=== PATIENT | male | born 1950 | race Caucasian/White ===

== ENCOUNTER → 2017-04-22 | Outpatient (REF) | payer OTHER ==
[~2017-04-22] MED LIST: ACTO30TA15 PO; AMIT25TA PO; AMLO10TA PO; ASPI325T PO; ATEN25TA PO; BYDU1INJ SC; GLYB5TA PO; HYDR12CA PO; LANTINJ4 SC; LOSA25TA8 PO; MECL-68 PO; METF500T13 PO; NOVOINJ3 SC; SIMV20TA2 PO; VIAG100T PO; VITA100066 PO; VITACHTA PO
== END ==
LOC: M LAB REF 12:51
PROVIDERS: ATTEND Nurse Practitioner Psychiatric/Mental Health
DX: E66.01 Morbid (severe) obesity due to excess calories (principal)

== ENCOUNTER → 2017-06-10 | Outpatient (CLI) | payer OTHER ==
[2017-06-10 13:57] LABS: CHOLESTEROL LEVEL 192 MG/DL (<200); TRIGLYCERIDES LEVEL 431 MG/DL (<150)
== END ==
LOC: M LAB 11:23
PROVIDERS: ATTEND Internal Medicine Endocrinology, Diabetes & Metabolism
DX: E11.22 Type 2 diabetes mellitus with diabetic chronic kidney disease (principal)

== ENCOUNTER 2017-09-13 08:11 | Outpatient (RCR) | payer OTHER | END 2017-10-10 | LOC: M PT 08:11 | DX: Z51.89 Encounter for other specified aftercare (principal); M25.512 Pain in left shoulder | CPT/HCPCS: 97010 ==

== ENCOUNTER → 2019-09-06 | Outpatient (CLI) | payer OTHER ==
[~2019-09-06] MED LIST changes: +ASPI-1 PO; -ASPI325T PO; +GLYB-147 PO; -GLYB5TA PO; +LOSA25TA14 PO; -LOSA25TA8 PO; -SIMV20TA2 PO; +SIMV20TA22 PO
[2019-09-06 09:33] LABS: CHOLESTEROL RISK RATIO 4.071 (<5)
== END ==
LOC: M LAB 08:22
PROVIDERS: ATTEND Family Medicine
DX: E11.22 Type 2 diabetes mellitus with diabetic chronic kidney disease (principal)

== ENCOUNTER → 2019-09-27 | Outpatient (CLI) | payer OTHER ==
--- NOTE | 2019-09-27 09:58 | REP ---
Abdominal aortic sonography: History: Screening for abdominal aortic aneurysm. . Findings: Scanning through the retroperitoneum demonstrates that the abdominal aorta is normal in caliber at the level of the diaphragmatic hiatus measuring 1.9 x 2.9 cm in AP by transverse dimension respectively. The measurements of the aorta at the level of the renal artery origins is 2.0 x 2.6 cm in AP by transverse dimension diameter respectively. The distal aorta tapers to 1.5 x 1.8 cm AP by transverse dimension. The right and left common iliac arteries are normal measuring 1.2 and 1.1 cm in AP dimension respectively. No aneurysm is seen. No periaortic disease is observed. Impression: Negative abdominal aortic sonography. Electronically Signed by Kevin Cisneros MD 09/27/2019 09:50 A
--- NOTE | 2019-09-27 11:15 | REP ---
LOW DOSE LUNG SCREENING CT: Low dose lung screening CT is accomplished on the axial plane. There are no prior studies for comparison. There is advanced parenchymal fibrosis diffusely bilaterally, predominantly peripherally in a subpleural location with mild associated honeycombing. There are areas of mild pleural thickening and fibrosis as well. No suspicious nodule is seen bilaterally. There are prominent cardiophrenic fat pads noted. Heart is upper limits of normal in size. There is no thoracic aortic aneurysm. There are degenerative changes of the spine. Antireflux device is noted at the gastroesophageal junction. IMPRESSION: Lung-RADS category [address] Recommend followup examination in 1 year. Electronically Signed by Juan Hall MD 09/27/2019 07:56 P
== END ==
LOC: M RAD 07:25
PROVIDERS: ATTEND Family Medicine
DX: Z12.2 Encounter for screening for malignant neoplasm of respiratory organs (principal); Z87.891 Personal history of nicotine dependence
CPT/HCPCS: 76706; G0297

== ENCOUNTER → 2020-02-15 | Outpatient (CLI) | payer OTHER ==
[~2020-02-15] MED LIST changes: -MECL-68 PO; +MECL1TAB31 PO
[2020-02-15 12:50] LABS: APPEARANCE, URINE CLEAR (CLEAR); BACTERIA, URINE AUTO NEGATIVE (NEGATIVE); BILIRUBIN, URINE AUTO NEGATIVE (NEGATIVE); BLOOD, URINE BLOOD NEGATIVE (NEGATIVE); COLOR, URINE YELLOW (YELLOW); GLUCOSE, URINE (UA) AUTO NEGATIVE (NEGATIVE); KETONE, URINE AUTO NEGATIVE (NEGATIVE); LEUKOCYTE ESTERASE, URINE AUTO NEGATIVE (NEGATIVE); MUCUS, URINE SMALL (NEGATIVE); NITRITE, URINE AUTO NEGATIVE (NEGATIVE); PROTEIN, URINE AUTO 2+ mg/dL (NEGATIVE); RBC, URINE AUTO 1 /HPF (0-3); SPECIFIC GRAVITY URINE AUTO 1.018 (1.002-1.035); SQUAMOUS EPITHELIAL CELL UR AU 0 /HPF (0-6); UROBILINOGEN, URINE AUTO 0.2 mg/dL (0.0-2.0); WBC, URINE AUTO 0 /HPF (0-3)
[2020-02-15 13:30] LABS: CALCIUM LEVEL 9.4 MG/DL (8.8-10.2); CREATININE FOR GFR 1.94 MG/DL (0.70-1.30); GLOMERULAR FILTRATION RATE 36.5 (>42); POTASSIUM SERUM 4.4 MEQ/L (3.5-5.1)
[2020-02-17 00:06] LABS: PSA % FREE 16.7 % (.); PSA FREE 0.77 ng/mL; PSA TOTAL 4.6 ng/mL (0.0-4.0)
== END ==
LOC: M LAB 12:17
PROVIDERS: ATTEND Nurse Practitioner Family
DX: R35.0 Frequency of micturition (principal)

== ENCOUNTER → 2020-03-01 | Outpatient (CLI) | payer OTHER ==
[~2020-03-01] MED LIST changes: +GLYB5TA PO; +INSU100I16 SQ; +VITAD1000T PO
--- NOTE | 2020-03-01 11:14 | REP ---
REASON FOR EXAM: Dyspnea. There are no priors for comparison. There is cardiomegaly. Patchy opacities and increased interstitial markings are seen throughout the lung mcneil with bibasilar predominance. Lung mcneil are hypoexpanded. The osseous structures are within normal limits. IMPRESSION: Cardiomegaly and lung field opacities, as described above, possibly reflecting chronic fibrotic change, however, I have no priors for comparison. I cannot rule out interstitial edema or other etiologies, such as viral pneumonitis. Electronically Signed by Mian Mendes DO 03/01/2020 11:25 A
== END ==
LOC: M RAD 10:29
PROVIDERS: ATTEND Nurse Practitioner Family
DX: R06.00 Dyspnea, unspecified (principal); I51.7 Cardiomegaly; R91.8 Other nonspecific abnormal finding of lung field

== ENCOUNTER → 2020-03-04 | Outpatient (CLI) | payer OTHER | LOC: M LABSMTC 12:23 | PROVIDERS: ATTEND Anesthesiology | DX: Z01.818 Encounter for other preprocedural examination (principal); Z11.59 Encounter for screening for other viral diseases ==

== ENCOUNTER 2020-03-07 11:08 | Day surgery (SDC) | payer OTHER ==
[~2020-03-07] VITALS: Ht 170.2 cm; Wt 121.6 kg
[~2020-03-07 11:08] MED LIST changes: +NS 1,000 ML IV ONE
[2020-03-07] MEDS ORDERED: propofoL 500 MG/50 ML VIAL As Ordered ONE (12:13)
[2020-03-07] MEDS ORDERED: LIDOCAINE 2% 100MG/5ML SDV (FOR ANES.) As Ordered ONE (12:13)
--- NOTE | 2020-03-07 12:17 | ROOR ---
Patient Name: Kevin Askew Procedure Date: 03/07/2020 11:59 AM Date of : 1950 Age: 69 Room: [facility] Gender: Male Note Status: Finalized Procedure: Colonoscopy Indications: High risk colon cancer surveillance: Personal history of colonic polyps Providers: Molina Carr Jr, MD Referring MD: Michelle Plascencia MD Requesting Provider: Medicines: Propofol per Anesthesia Complications: No immediate complications. Procedure: Pre-Anesthesia Assessment: - Prior to the procedure, a History and Physical was performed, and patient medications and allergies were reviewed. The patient is competent. The risks and benefits of the procedure and the sedation options and risks were discussed with the patient. All questions were answered and informed consent was obtained. Patient identification and proposed procedure were verified by the physician and the nurse in the pre-procedure area and in the procedure room. Mental Status Examination: alert and oriented. Airway Examination: normal oropharyngeal airway and neck mobility. Respiratory Examination: clear to auscultation. CV Examination: normal. ASA Grade Assessment: III - A patient with severe systemic disease. After reviewing the risks and benefits, the patient was deemed in satisfactory condition to undergo the procedure. The anesthesia plan was to use moderate sedation / analgesia (conscious sedation). Immediately prior to administration of medications, the patient was re-assessed for adequacy to receive sedatives. The heart rate, respiratory rate, oxygen saturations, blood pressure, adequacy of pulmonary ventilation, and response to care were monitored throughout the procedure. The physical status of the patient was re-assessed after the procedure. The Colonoscope was introduced through the anus and advanced to the cecum, identified by appendiceal orifice and ileocecal valve. The colonoscopy was performed without difficulty. The patient tolerated the procedure well. The quality of the bowel preparation was adequate. Findings: A diminutive polyp was found in the transverse colon. The polyp was removed with a cold snare. Resection and retrieval were complete. The rectum, recto-sigmoid colon, descending colon, ascending colon, cecum, appendiceal orifice and ileocecal valve appeared normal. A few small-mouthed diverticula were found in the sigmoid colon. Non-bleeding internal hemorrhoids were found during endoscopy. The hemorrhoids were Grade II (internal hemorrhoids that prolapse but reduce spontaneously) and Grade III (internal hemorrhoids that prolapse but require manual reduction). Impression: - One diminutive polyp in the transverse colon, removed with a cold snare. Resected and retrieved. - The rectum, recto-sigmoid colon, descending colon, ascending colon, cecum, appendiceal orifice and ileocecal valve are normal. - Diverticulosis in the sigmoid colon. - Non-bleeding internal hemorrhoids. Recommendation: - Repeat colonoscopy in 5 years for surveillance. Molina Carr MD Molina Carr Jr, MD 03/07/2020 12:17:33 PM Electronically signed by Molina Carr Jr, MD Number of Addenda: 0 Note Initiated On: 03/07/2020 11:59 AM Estimated Blood Loss: Estimated blood loss: none.
[2020-03-07 12:40] VITALS: BP 124/58
== END 2020-03-07 13:05 | disposition home or self-care (01) ==
LOC: M OPP 11:08
PROVIDERS: ATTEND Surgery
DX: Z12.11 Encounter for screening for malignant neoplasm of colon (principal); Z86.010 Personal history of colon polyps; D12.6 Benign neoplasm of colon, unspecified; K64.2 Third degree hemorrhoids; K57.30 Diverticulosis of large intestine without perforation or abscess without bleeding; E11.9 Type 2 diabetes mellitus without complications; Z79.4 Long term (current) use of insulin; Z79.82 Long term (current) use of aspirin; Z79.899 Other long term (current) drug therapy; Z87.891 Personal history of nicotine dependence

== ENCOUNTER → 2020-03-27 | Outpatient (CLI) | payer OTHER ==
[~2020-03-27] MED LIST changes: +ALLO100T PO; -AMIT25TA PO; +AMIT25TA17 PO; +ASA 81MG; +D31000TA2 PO; +DOCU100C16 PO; +FURO20TA2 PO; -GLYB5TA PO; +GLYB5TAB6 PO; +INSUH10VL SC; +LISI-898 PO; -NS 1,000 ML IV ONE; +OMEP10CASR PO; +OMEP1CAP73 PO; +PERCOCET PO; +PIOG1TAB36 PO; +PIOG30TA PO; +SUPRSOL2; +TAMS1CAP17 PO; +TOPA50TA8 PO; +TOPI25TA10 PO; -VITAD1000T PO
[2020-03-28 23:07] LABS: PSA % FREE 12.3 % (.); PSA FREE 0.65 ng/mL; PSA TOTAL 5.3 ng/mL (0.0-4.0)
== END ==
LOC: M LAB 08:03
PROVIDERS: ATTEND Nurse Practitioner Family
DX: R97.20 Elevated prostate specific antigen [PSA] (principal)

== ENCOUNTER → 2020-04-23 | Outpatient (CLI) | payer OTHER ==
[~2020-04-23] MED LIST changes: +AMIT25TA PO; -AMIT25TA17 PO; +GLYB5TA PO; -GLYB5TAB6 PO; +LISI-542 PO; -LISI-898 PO
--- NOTE | 2020-04-23 16:53 | REPPI ---
TRANSRECTAL PROSTATE ULTRASOUND WITH ULTRASOUND GUIDANCE FOR PROSTATE BIOPSY: Transrectal prostate ultrasound performed. Prostate measures 3.5 x 2.8 x 4.7 cm for a total volume of 23.8 mL. No solid mass is identified with a few scattered cysts and calcifications. Seminal vesicles appear symmetrical. Ultrasound guidance was provided for Dr. Rome, who performed ultrasound guided biopsy of the prostate. Electronically Signed by Juan Hall MD 04/24/2020 11:28 A
== END ==
LOC: M SMT PRO 09:11
PROVIDERS: ATTEND Urology
DX: C61 Malignant neoplasm of prostate (principal)
CPT/HCPCS: 52281; 55700; 76872; 76942; G0416

== ENCOUNTER → 2020-05-02 | Outpatient (CLI) | payer OTHER ==
[~2020-05-02] MED LIST changes: -D31000TA2 PO; +VITAD1000T PO
== END ==
LOC: M LAB 11:44
PROVIDERS: ATTEND Urology
DX: C61 Malignant neoplasm of prostate (principal)

== ENCOUNTER → 2020-05-14 | Outpatient (CLI) | payer OTHER ==
[~2020-05-14] MED LIST changes: +D31000TA2 PO; -VITAD1000T PO
[2020-06-10 18:10] LABS: INR 0.99; PARTIAL THROMBOPLASTIN TIME 29.1 SECONDS (25.0-38.4); PROTHROMBIN TIME 13.3 SECONDS (11.8-14.0)
[2020-06-10 20:28] LABS: HEMOGLOBIN 15.5 g/dl (13.5-17.5); MEAN CORPUSCULAR HEMOGLOBIN 30.2 pg (27.0-33.0); MEAN CORPUSCULAR VOLUME 91.6 fl (80.0-96.0); PLATELET COUNT, AUTOMATED 232 10^3/uL (150-450); RED BLOOD COUNT 5.13 10^6/uL (4.30-6.10); WHITE BLOOD COUNT 12.8 10^3/uL (4.0-10.0)
--- NOTE | 2020-07-03 13:58 | ECGEPIP ---
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
[2020-07-30 11:45] LABS: GLUCOSE, FASTING SEE SEPARATE REPORT
== END ==
LOC: M LAB 13:21
PROVIDERS: ATTEND Urology
DX: Z01.818 Encounter for other preprocedural examination (principal); C61 Malignant neoplasm of prostate
CPT/HCPCS: 36415; 71046; 80048; 85027; 85610; 85730; 93005; G0463

== ENCOUNTER → 2020-05-27 | Outpatient (REF) | payer OTHER | LOC: M SMT 14:44 | PROVIDERS: ATTEND Urology | DX: Z01.818 Encounter for other preprocedural examination (principal); R30.0 Dysuria; R33.9 Retention of urine, unspecified ==

== ENCOUNTER → 2020-05-30 | Outpatient (CLI) | payer OTHER | LOC: M LABSMTC 10:49 | PROVIDERS: ATTEND Anesthesiology | DX: Z01.812 Encounter for preprocedural laboratory examination (principal); Z11.59 Encounter for screening for other viral diseases ==

== ENCOUNTER 2020-06-04 06:01 | Inpatient (IN) | payer OTHER ==
[2020-06-04] VITALS (8 sets, daily range): BP systolic 112–121; BP diastolic 65–71
[~2020-06-04] VITALS: Ht 170.2 cm; Wt 116.1 kg
[~2020-06-04 06:01] MED LIST changes: -ASA 81MG; -DOCU100C16 PO; -INSUH10VL SC; -OMEP1CAP73 PO; -PERCOCET PO; -PIOG30TA PO; -SUPRSOL2; -TAMS1CAP17 PO; -TOPI25TA10 PO
[2020-06-04] MEDS ORDERED: SUPRSOL2 (06:59)
[2020-06-04] MEDS ORDERED: ASA 81MG (07:07)
[2020-06-04] MEDS ORDERED: BUPIVACAINE HCL 0.25% 30ML VIAL As Ordered ONE (07:11)
[2020-06-04] MEDS ORDERED: LIDOCAINE 1% SDV 30ML VIAL As Ordered ONE (07:11)
[2020-06-04] MEDS ORDERED: dexameTHASONE 4 MG/ML 1ML VIAL (J1100 PER 1MG) As Ordered ONE (07:18)
[2020-06-04] MEDS ORDERED: LIDOCAINE 2% 100MG/5ML SDV (FOR ANES.) As Ordered ONE (07:18)
[2020-06-04] MEDS ORDERED: ONDANSETRON 4MG/2ML VIAL As Ordered ONE (07:18)
[2020-06-04] MEDS ORDERED: HYDROmorphone HCL 2 MG/ML 1ML VIAL (J1170) As Ordered ONE (07:18)
[2020-06-04] MEDS ORDERED: propofoL 200 MG/20 ML VIAL As Ordered ONE (07:18)
[2020-06-04] MEDS ORDERED: fentaNYL 100 MCG/2 ML INJECTION (J3010) As Ordered ONE (07:18)
[2020-06-04] MEDS ORDERED: MIDAZOLAM INJ 2MG/2ML VIAL (J2250 PER 1MG) As Ordered ONE (07:18)
[2020-06-04] MEDS ORDERED: ROCURONIUM BROMIDE 50 MG/5 ML VIAL As Ordered ONE ×4 (07:18→10:48)
[2020-06-04] MEDS ORDERED: ceFAZolin SOD 2 GM in IV 1 EA IV ONE (07:30)
[2020-06-04] MEDS ORDERED: LR 1,000 ML IV ONE (07:30)
[2020-06-04] MEDS ORDERED: HEPARIN SOD (PORCINE) 5000UNITS/ML 1ML VIAL/SYRINGE SQ ONE (07:30)
[2020-06-04] MEDS ORDERED: ACETAMINOPHEN TAB 650MG DOSE (2X325MG) PO PRN (07:45)
[2020-06-04] MEDS ORDERED: GLUCOSE 4GM CHEW TABLET PO PRN (07:45)
[2020-06-04] MEDS ORDERED: PERCOCET 5MG/325MG TAB PO PRN (07:45)
[2020-06-04] MEDS ORDERED: GLUCAGON INJ 1MG VIAL SC PRN (07:45)
[2020-06-04] MEDS ORDERED: ONDANSETRON 4MG/2ML VIAL IV PRN ×2 (07:45→13:00)
[2020-06-04] MEDS ORDERED: DEXTROSE 50% 50 ML SYRINGE IV PRN (07:45)
[2020-06-04] MEDS ORDERED: MORPHINE 2 MG/ML 1ML VIAL (J2270) IV PRN (07:45)
[2020-06-04] MEDS ORDERED: GLYCOPYRROLATE INJ 0.2 MG/ML 2 ML VIAL As Ordered ONE (08:14)
[2020-06-04] MEDS ORDERED: ePHEDrine SULFATE 25 MG/5 ML(5MG/ML) SYRINGE As Ordered ONE (08:22)
[2020-06-04] MEDS ORDERED: PHENYLephrine HCL 500 MCG/5 ML (100MCG/ML) SYRINGE (J2370) As Ordered ONE ×2 (08:22→10:48)
[2020-06-04] MEDS ORDERED: SUGAMMADEX SODIUM 500 MG/5 ML VIAL (BRIDION) As Ordered ONE (08:28)
[2020-06-04] MEDS ORDERED: PIOG30TA PO (08:39)
[2020-06-04] MEDS ORDERED: ACETAMINOPHEN 1000MG 100ML IV BTL (OFIRMEV) (J0131 PER 10MG) As Ordered ONE (08:43)
[2020-06-04] MEDS ORDERED: FUROSEMIDE 20 MG TAB PO SCH (09:00)
[2020-06-04] MEDS ORDERED: ceFAZolin 2 GM/D5W 50 ML IV BAG (J0690 PER 500MG) As Ordered ONE (12:38)
[2020-06-04] MEDS ORDERED: LR 1,000 ML IV SCH (13:00)
[2020-06-04] MEDS ORDERED: HYDROMORPHONE HCL 0.5 MG/ 0.5 ML SYRINGE (J1170 PER 1) IV PRN (13:00)
[2020-06-04] MEDS ORDERED: fentaNYL 100 MCG/2 ML INJECTION (J3010) IV PRN (13:00)
[2020-06-04] MEDS ORDERED: oxyCODONE 5MG TAB PO PRN (13:00)
[2020-06-04] MEDS: HumaLOG INSULIN (NovoLOG) PER UNIT SC SCH ×3 (13:04→20:48)
[2020-06-04] MEDS ORDERED: HumaLOG INSULIN (NovoLOG) PER UNIT SC ONE (13:30)
[2020-06-04] MEDS: NS 1,000 ML IV SCH (14:06)
[2020-06-04 14:38] LABS: HEMATOCRIT 45.1 % (42.0-52.0); HEMOGLOBIN 14.5 g/dl (13.5-17.5); MEAN CORPUSCULAR HEMOGLOBIN 29.8 pg (27.0-33.0); MEAN CORPUSCULAR HGB CONC 32.2 g/dl (32.0-36.5); MEAN CORPUSCULAR VOLUME 92.6 fl (80.0-96.0); PLATELET COUNT, AUTOMATED 186 10^3/uL (150-450); RED BLOOD COUNT 4.87 10^6/uL (4.30-6.10); WHITE BLOOD COUNT 12.8 10^3/uL (4.0-10.0)
[2020-06-04 15:07] LABS: CALCIUM LEVEL 8.9 MG/DL (8.8-10.2); CREATININE FOR GFR 2.41 MG/DL (0.70-1.30); GLOMERULAR FILTRATION RATE 28.3 (>42); POTASSIUM SERUM 4.7 MEQ/L (3.5-5.1)
[2020-06-04] MEDS: OMEPRAZOLE 20 MG CAP PO SCH (15:42)
[2020-06-04] MEDS: lisinopriL 5 MG TAB PO SCH (15:42)
[2020-06-04] MEDS: allopurinoL 100 MG TAB PO SCH (15:43)
[2020-06-04] MEDS ORDERED: INSUH10VL SC (16:20)
[2020-06-04] MEDS ORDERED: OMEP1CAP73 PO (16:20)
[2020-06-04] MEDS ORDERED: TAMS1CAP17 PO (16:20)
[2020-06-04] MEDS ORDERED: TOPI25TA10 PO (16:20)
--- NOTE | 2020-06-04 17:23 | ROOPDOC ---
[facility] Report Of Operation Report of Operation DATE OF PROCEDURE: 06/04/20 PREPROCEDURE DIAGNOSES: Prostate Cancer. POSTPROCEDURE DIAGNOSES: Prostate Cancer. PROCEDURE: Robotic-assisted Laparoscopic Radical Prostatectomy with Bilateral Pelvic Lymph Node Dissection. SURGEON: Sonido Nguyen MD BIT SHARPENER OPERATOR: Emily Marshall NP ANESTHESIA: General. OPERATIVE INDICATIONS: This is a 70 year old male with clinical T1c Morrison 4+4 prostate cancer, here today for treatment. DESCRIPTION OF PROCEDURE: The patient was brought to the operating room and general anesthesia was induced. Prophylactic antibiotics were infused. He was then placed in the supine position and prepped and draped in the usual sterile fashion. At this point, a Mcdaniels catheter was inserted into the bladder and the balloon was filled with 10 mL of sterile water. We then made a midline incision just above the umbilicus for an 8 mm port. A Veress needle was utilized to achieve pneumoperitoneum. Next, an 8 mm port was inserted into the incision and subsequently a camera was inserted. There were no injuries from the Veress needle or initial trocar placement. Then three robotic ports were placed in the usual configuration in line just below the level of the umbilicus. A 12 mm imaging assistant port was inserted lateral to the camera port. Once all the ports were placed, the robot was docked. Additional lysis of adhesions between the sigmoid colon and abdominal wall was then performed. The bladder was then released from the anterior abdominal wall using electrocautery. Once the bladder was dropped, the fat overlying the prostate was cleared using electrocautery. The superficial dorsal vein was controlled with electrocautery. The endopelvic fascia was opened on both sides and the dorsal venous complex was cleared. Next, a #0 Vicryl [id number] stitch was placed around the dorsal venous complex. Once that was done, the bladder was opened and dissected away from the prostate. At this point, the prostate was lifted up. The vasa deferentia were identified in the midline. They were controlled with electrocautery and then transected. The seminal vesicles were also dissected bilaterally. While doing this a segment of the left seminal vesicle detached. It was therefore sent separately for pathologic analysis. At this point I ligated and transected bilateral prostatic pedicles using the Harmonic scalpel. The pedicles were carried towards the apex. After taking care of the pedicles the dorsal venous complex was transected with electrocautery. The urethra was transected. The prostate was then mobilized off the rectum using cold scissors. After the prostate was removed, we checked for hemostasis and it appeared very good. Next, we performed bilateral pelvic lymph node dissection. This was done in a standard fashion. The limits of dissection were the iliac vein proximally, the obturator nerve distally, the pelvic sidewall laterally, and the bladder medially. All lymphatic tissue within these limits was removed. I performed the same procedure on both the right and left sides. Hemostasis was then obtained with a combination of bipolar electrocautery and Weck clips. The lymphatic packets were then placed in separate Endo Catch bags for future retrieval. Once hemostasis was confirmed, I then moved on to perform the vesicourethral anastomosis. The vesicourethral anastomosis was performed in running fashion using a Quill stitch. Once this was done, the final #20-Tunisian Mcdaniels catheter was placed. The balloon was filled with 15 mL of sterile water. Upon completion of the vesicourethral anastomosis, it was tested by filling the bladder with sterile water. The anastomosis appeared to be watertight. At this point, the prostate and seminal vesicles were placed in an Endo Catch bag for future retrieval. A Korey-Tuttle drain was brought in through the left robotic port skin site and the drain was positioned anterior to the bladder. The robot was then undocked. A Nishant fascial closure device was utilized to place a #0 Vicryl suture through the fascia of the 12 mm imaging assistant port. The drain was secured to the skin with #2-0 Ethilon suture. The prostate, as well as the lymphatic packets were then extracted from the camera port site after the skin was extended. The fascia in this incision was then closed with a running #0 Vicryl stitch. Next, all the remaining ports were removed and there did not appear to be any bleeding from any of the port sites. The previously placed #0 Vicryl free ties through the imaging assistant port were then tied down and all incisions were irrigated. Last, all of the incisions were closed with running subcuticular #4-0 Monocryl sutures. Local anesthesia was applied. Dermabond was then applied to the incisions. This marked the conclusion of the procedure. The patient was then awakened from anesthesia and transported to the recovery room in stable condition. ESTIMATED BLOOD LOSS: 100 mL. COMPLICATIONS: None. SPECIMENS: Prostate and seminal vesicles, right pelvic lymph nodes, left pelvic lymph nodes, segment of left seminal vesicle. PLAN: The patient will be admitted to the hospital postoperatively, and he will likely be discharged home within the next 1-2 days. SONIDO NGUYEN MD Jun 04, 2020 17:23
[2020-06-04] MEDS: ceFAZolin SOD 1 GM in D5W MINI-BAG PLUS 50 ML IV SCH (17:57)
[2020-06-04] MEDS ORDERED: TOPIRAMATE (TopAMAX) 25 MG TAB PO SCH (21:00)
[2020-06-04] MEDS: HEPARIN SOD (PORCINE) 5000UNITS/ML 1ML VIAL/SYRINGE SC SCH (21:10)
[2020-06-04] MEDS: AMITRIPTYLINE 25 MG TAB PO SCH (21:10)
[2020-06-04] MEDS: TOPIRAMATE (TopAMAX) 25 MG TAB PO SCH (21:10)
[2020-06-04] MEDS: DOCUSATE SODIUM 100 MG CAP PO SCH (21:10)
[2020-06-05] MEDS: ceFAZolin SOD 1 GM in D5W MINI-BAG PLUS 50 ML IV SCH (00:02)
[2020-06-05 02:00] VITALS: BP 110/49
[2020-06-05] MEDS: NS 1,000 ML IV SCH (04:52)
[2020-06-05] MEDS: CIPROFLOXACIN 500MG TABLET PO SCH ×2 (05:26→18:44)
[2020-06-05] MEDS: HEPARIN SOD (PORCINE) 5000UNITS/ML 1ML VIAL/SYRINGE SC SCH ×3 (05:26→20:59)
[2020-06-05 06:00] VITALS: BP 110/52
[2020-06-05 07:04] LABS: HEMATOCRIT 36.5 % (42.0-52.0); MEAN CORPUSCULAR HEMOGLOBIN 30.6 pg (27.0-33.0); MEAN CORPUSCULAR HGB CONC 33.2 g/dl (32.0-36.5); MEAN CORPUSCULAR VOLUME 92.2 fl (80.0-96.0); PLATELET COUNT, AUTOMATED 164 10^3/uL (150-450); RED BLOOD COUNT 3.96 10^6/uL (4.30-6.10); WHITE BLOOD COUNT 13.2 10^3/uL (4.0-10.0)
[2020-06-05 07:10] LABS: CALCIUM LEVEL 8.5 MG/DL (8.8-10.2); CREATININE FOR GFR 1.92 MG/DL (0.70-1.30); GLOMERULAR FILTRATION RATE 36.8 (>42); POTASSIUM SERUM 4.6 MEQ/L (3.5-5.1)
[2020-06-05 07:31] LABS: HEMOGLOBIN 12.1 g/dl (13.5-17.5)
--- NOTE | 2020-06-05 08:29 | IPNPDOC ---
Subjective Review oF Systems Chief Complaint The patient is a 70-year-old male admitted with a reason for visit of Prostate Cancer. Events since Last Encounter No acute events o/n. Good pain control - has not taken any pain medication yet. No n/v. Has not ambulated yet. No f/c/ns. Objective Physical Examination General Exam: Alert, Cooperative, No Acute Distress ABDOMEN EXAM: Soft, Tenderness (mild), Other (incisions clean/dry/intact; GILSON w/ serosanguinous output) Skin Exam: Nl turgor and temperature Neuro Exam: Normal Speech Psych Exam: Mental status NL, Mood NL Other physical findings catheter draining light pink urine Vital Signs/I&O Vital Signs Date Time Temp Pulse Resp B/P (MAP) Pulse Ox O2 Delivery O2 Flow Rate FiO2 06/05/20 06:00 98.3 71 17 110/52 (71) 97 Nasal Cannula 3.0 06/04/20 12:30 100 I&O- Last 24 Hours up to 6 AM 06/05/20 06:00 Intake Total 3310 ml Output Total 1440 ml Balance 1870 ml Laboratory Data Labs 24H Laboratory Tests 2 06/04/20 12:45: Nucleated Red Blood Cells % (auto) 0.0, Anion Gap 7L, Glomerular Filtration Rate 28.3L, Calcium Level 8.9 06/05/20 05:50: Nucleated Red Blood Cells % (auto) 0.0, Anion Gap 6L, Glomerular Filtration Rate 36.8L, Calcium Level 8.5L CBC/BMP Laboratory Tests 06/04/20 12:45 06/05/20 05:50 Assessment/Plan Date Seen The patient was seen on 06/05/20. Patient Summary This is a 70 y/o M POD1 s/p RALP w/ BPLND. He feels well. Hb 12.1. Cr 1.9. Good UOP. Normal GILSON output. Plan/VTE VTE Prophylaxis Ordered?: Yes VTE Exclusion Pharmacological: N/A:VTE Prophy Ordered Plan/Urinary Catheter Reason for insertion/continuin: Other-document below Plan - d/c IVF - strict I/Os - percocet prn pain - wean O2 as tolerated - patient likely a little fluid overloaded - suspect O2 sat will improve w/ diuresis - cont home lasix - cipro for UTI - keep catheter in place for at least 7 days for healing of vesicourethral anastomosis - SCDs in bed - SQH - ambulate as tolerated - incentive spirometry - continue home meds - advance diet as tolerated - possible discharge home later today SONIDO NGUYEN MD Jun 05, 2020 08:29
[2020-06-05] MEDS: OMEPRAZOLE 20 MG CAP PO SCH (08:50)
[2020-06-05] MEDS: FUROSEMIDE 20 MG TAB PO SCH ×2 (08:50→18:45)
[2020-06-05] MEDS: DOCUSATE SODIUM 100 MG CAP PO SCH ×2 (08:50→20:59)
[2020-06-05] MEDS: TOPIRAMATE (TopAMAX) 25 MG TAB PO SCH ×2 (08:56→20:59)
[2020-06-05] MEDS: allopurinoL 100 MG TAB PO SCH (09:00)
[2020-06-05] MEDS: lisinopriL 5 MG TAB PO SCH (09:00)
[2020-06-05] MEDS: HumaLOG INSULIN (NovoLOG) PER UNIT SC SCH ×4 (09:02→21:00)
[2020-06-05 10:00] VITALS: BP 132/58
[2020-06-05] MEDS: PERCOCET 5MG/325MG TAB PO PRN ×3 (11:27→20:58)
[2020-06-05 14:00] VITALS: BP 130/63
[2020-06-05] MEDS ORDERED: guaiFENesin 200 MG TAB PO PRN (15:00)
[2020-06-05 18:00] VITALS: BP 130/65
[2020-06-05] MEDS: AMITRIPTYLINE 25 MG TAB PO SCH (20:58)
[2020-06-05 22:00] VITALS: BP 137/66
[2020-06-06 02:00] VITALS: BP 140/60
[2020-06-06 05:56] LABS: HEMATOCRIT 38.8 % (42.0-52.0); MEAN CORPUSCULAR HGB CONC 33.5 g/dl (32.0-36.5); MEAN CORPUSCULAR VOLUME 92.6 fl (80.0-96.0); PLATELET COUNT, AUTOMATED 167 10^3/uL (150-450); RED BLOOD COUNT 4.19 10^6/uL (4.30-6.10); WHITE BLOOD COUNT 10.6 10^3/uL (4.0-10.0)
[2020-06-06 06:00] VITALS: BP 149/68
[2020-06-06 06:09] LABS: CALCIUM LEVEL 8.3 MG/DL (8.8-10.2); CREATININE FOR GFR 1.78 MG/DL (0.70-1.30); GLOMERULAR FILTRATION RATE 40.2 (>42); POTASSIUM SERUM 4.5 MEQ/L (3.5-5.1)
[2020-06-06] MEDS: HEPARIN SOD (PORCINE) 5000UNITS/ML 1ML VIAL/SYRINGE SC SCH ×3 (06:18→21:25)
[2020-06-06] MEDS: PERCOCET 5MG/325MG TAB PO PRN ×4 (06:19→21:25)
[2020-06-06] MEDS: CIPROFLOXACIN 500MG TABLET PO SCH ×2 (06:19→17:14)
[2020-06-06] MEDS: HumaLOG INSULIN (NovoLOG) PER UNIT SC SCH ×4 (07:54→21:00)
[2020-06-06 08:30] VITALS: BP 116/67
--- NOTE | 2020-06-06 09:51 | IPNPDOC ---
Subjective Review oF Systems Chief Complaint The patient is a 70-year-old male admitted with a reason for visit of Prostate Cancer. Events since Last Encounter No acute events o/n. Patient feels much better today compared to yesterday. Good pain control. No n/v. Tolerating regular diet. Ambulating. No f/c/ns. Objective Physical Examination General Exam: Alert, Cooperative, No Acute Distress ABDOMEN EXAM: Soft, Tenderness (mild), Other (incisions clean/dry/intact; GILSON w/ serous output) Skin Exam: Nl turgor and temperature Neuro Exam: Normal Speech Psych Exam: Mental status NL, Mood NL Other physical findings catheter draining light pink urine Vital Signs/I&O Vital Signs Date Time Temp Pulse Resp B/P (MAP) Pulse Ox O2 Delivery O2 Flow Rate FiO2 06/06/20 08:30 97.9 87 16 116/67 (83) 90 Nasal Cannula 0.5 06/04/20 12:30 100 I&O- Last 24 Hours up to 6 AM 06/06/20 06:00 Intake Total 2570 ml Output Total 2470 ml Balance 100 ml Laboratory Data Labs 24H Laboratory Tests 2 06/06/20 05:29: Nucleated Red Blood Cells % (auto) 0.0, Anion Gap 4L, Glomerular Filtration Rate 40.2L, Calcium Level 8.3L 06/06/20 08:00: CBC/BMP Laboratory Tests 06/06/20 05:29 Assessment/Plan Date Seen The patient was seen on 06/06/20. Patient Summary This is a 70 y/o M POD2 s/p RALP w/ BPLND. He feels well. Hb 13. Cr 1.8 (baseline is 1.9). Good UOP. GILSON output picked up o/n. Will send GILSON fluid for Cr to r/o urine leak. Plan/VTE VTE Prophylaxis Ordered?: Yes VTE Exclusion Pharmacological: N/A:VTE Prophy Ordered Plan/Urinary Catheter Reason for insertion/continuin: Other-document below Plan - catheter to stay in for at least 7 days for healing of vesicourethral anastomosis - continue cipro for UTI - percocet prn pain - continue home meds - ambulate as tolerated - SCDs when in bed - SQH - incentive spirometry - send GILSON fluid for Cr - if value is normal, will d/c GILSON drain - diabetic diet - likely discharge home today w/ catheter SONIDO NGUYEN MD Jun 06, 2020 09:51
[2020-06-06] MEDS ORDERED: DOCU100C16 PO (10:17)
[2020-06-06] MEDS ORDERED: PERCOCET PO (10:17)
[2020-06-06] MEDS: OMEPRAZOLE 20 MG CAP PO SCH (10:32)
[2020-06-06] MEDS: DOCUSATE SODIUM 100 MG CAP PO SCH ×2 (10:32→21:25)
[2020-06-06] MEDS: FUROSEMIDE 20 MG TAB PO SCH ×2 (10:33→17:15)
[2020-06-06] MEDS: allopurinoL 100 MG TAB PO SCH (10:34)
[2020-06-06] MEDS: TOPIRAMATE (TopAMAX) 25 MG TAB PO SCH ×2 (10:34→21:25)
[2020-06-06] MEDS: lisinopriL 5 MG TAB PO SCH (10:34)
[2020-06-06 10:35] LABS: CREATININE BF 1.9 MG/DL (NOT ESTABLISHED); SOURCE, BODY FLUID CREATININE PERITONEAL
[2020-06-06 12:00] VITALS: BP 110/52
[2020-06-06 13:00] VITALS: BP 110/52
--- NOTE | 2020-06-06 15:57 | HPEPDOC ---
[facility] Medical History & Physical Date of Admission Jun 04, 2020 Date of Service: Jun 06, 2020 Attending Physician: Kaitlyn Clark MD History and Physical MEDICAL CONSULT H&P HISTORY OF PRESENT ILLNESS: Patient is a 70 y/o M with PMH of heart murmur, ARMIDA on CPAP nightly, CKD stage II, DM type II, hypertension, recent diagnosis of prostate cancer who was admitted on 06/04/20 for robotic lap radial prostatectomy with bilateral pelvic lymph node dissection. There were no complications during surgery and urology is primary service. Earlier today the patient was found to drop his oxygen saturation to 70's with ambulation, he does not normally wear oxygen at home. We were consulted for further evaluation. Upon speaking with patient, he has long history of smoking. Shortness of breath with walking is not new for him and has gradually been worsening since early this spring. CXR done here shows diffuse interstitial fibrosis pattern unchanged from prior on file with no acute concerns. BNP <350, troponin neg. Patient admits to getting fatigued easily and short of breath with walking long di stances. He often needs to stop and rest to catch his breath. Patient has a chronic productive cough of clear phlegm, worsened since this spring as well. He has no allergies and no official diagnosis of COPD or asthma, he does not follow with a windows and doors installer regularly. He admits to increased dizziness at times with heavy activity, which can be another sign of hypoxia with activity. Patient states that he might have been exposed to Agent orange in [place] [id number]. Denies chest pain, fevers, chills, recent sick exposure, requiring oxygen, cyanotic episodes, diaphoresis. ROS: Neg except mentioned above. PAST MEDICAL HISTORY: 1. Heart murmur 2. ARMIDA uses CPAP night 3. CKD Stage III 4. DM type II 5. Prostate cancer (Dx 04/2020) 6. gerd 7. HTN 8. HLD PAST SURGICAL HISTORY: 1. Prostatectomy 2. Right ankle surgery 3. Exploratory laparotomy 4. cholecystectomy 1979 5. 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 ETOH: Social alcohol use, 1 beer every 1-2 weeks Illicit drug use: Denies IV drug use: Denies No use of cane or walker Follows with: 1. PCP- Dr. Jil Plascencia, 2. Nephrology- Dr. gonzalez, 3. Cardiology- Dr. Morgan, 4. Endocrinology- Dr. Yash Jennings FAMILY HISTORY: Father: kidney cancer, HTN. at 92 y/o Mother: DM type II, CAD. at 73 y/o Sister: DM type II. 65 y/o ALLERGIES: Please see below. HOME MEDICATIONS: Please see below. PHYSICAL EXAMINATION: VITAL SIGNS: Please see below GENERAL APPEARANCE: NAD, resting at bedside chair HEENT: AT/NC, corrective lenses in place, EOM intact NECK: large diameter CARDIOVASCULAR: Murmur + chronic, irregular heartbeat. S1S2 +, no rubs or gallops LUNGS: Crackles bilaterally, mild. decreased bilaterally from what normal is. No wheezing, rhonchi or rales. ABDOMEN: obese abdomen, nontender, nondistended, BS + 4 quad MUSCULOSKELETAL: No atrophy, ROM not tested EXTREMITIES: +2 pitting edema in bilateral lower ext, pulses + in all extremities and strong NEUROLOGICAL: CN 2-12 intact, no focal deficits. No sensory or motor deficits. PSYCHIATRIC: Mood and affect appropriate. LABORATORY DATA: See below. IMAGING: CXR: diffuse interstitial fibrosis pattern, unchanged from prior CXR. NAD ASSESSMENT: 70 y/o M POD2 robotic lap radial prostatectomy with bilateral pelvic lymph node dissection, hx of prostate cancer with worsening SOB, hypoxia. PLAN: 1. Shortness of breath likely chronic respiratory failure and hypoxia, not previously diagnosed. COPD vs. interstitial lung disease are possibilities. States to be compliant with ARMIDA nightly, no oxygen needed. He has had increased SOB especially with activity or heavy lifting now for several months. Long history of smoking and findings on CXR that appear chronic and unchanged. This does not appear cardiac in etiology, BNP is almost normal and trop neg. At this time would recommend CT of chest without contrast to get better look at lungs, start duonebs ATC, albuterol PRN. Will likely need oxygen at discharge, so when the workup discussed is completed, can have respiratory therapy walk to see what is needed for oxygen. Will need official PFTs done by outpatient pulmonary service. 2. Sinus arrhythmia on ECG. Patient states to have occasional palpitations associated with SOB. TTE 04/16/2020 showed LVEF 60-65%, grade I LV diastolic dysfunction, mild , small pericardial effusion- cleared by Dr. Morgan for procedure after that. Trop neg, BNP <350. Monitor on tele overnight. If arrhythmia persists, may need to f/u with Dr. Morgan o/p. 3. Lower ext edema, bilaterally. Possibly lymphedema, recommend teds. C/w lasix BID. 4. ARMIDA, nightly CPAP. C/w current treatment. 5. Prostate cancer, recent diagnosis. POD2 robotic lap radial prostatectomy with bilateral pelvic lymph node dissection. Urology primary, managing. Has not seen heme/onc. 6. CKD Stage III. Cr near baseline at 1.78. F/u with Dr. Gonzalez o/p. 7. DM type II. BS 189 this AM, on ISS. Can add daily levemir if to stay. C/w consistent carb diet, AC/HS FS, ISS AC/HS. F/u with Dr. Jennings o/p. 8. DVT px. heparin. DISPOSITION: If not need to involve pulmonary in the AM, do walking desaturation test to determine how much oxygen to discharge home on. Will need outpatient referral to pulmonary services for PFTs. Vital Signs Vital Signs Date Time Temp Pulse Resp B/P (MAP) Pulse Ox O2 Delivery O2 Flow Rate FiO2 06/06/20 12:00 96.6 77 16 110/52 (71) 94 Nasal Cannula 0.5 06/04/20 12:30 100 Laboratory Data Labs 24H Laboratory Tests 2 06/06/20 05:29: Nucleated Red Blood Cells % (auto) 0.0, Anion Gap 4L, Glomerular Filtration Rate 40.2L, Calcium Level 8.3L 06/06/20 08:00: Body Fluid Creatinine Source PERITONEAL, Body Fluid Creatinine 1.9 CBC/BMP Laboratory Tests 06/06/20 05:29 Home Medications Scheduled Allopurinol (Allopurinol) 100 Mg Tablet, 200 MG PO DAILY Amitriptyline HCl (Amitriptyline HCl) 25 Mg Tab, 25 MG PO QHS Aspirin (Aspirin) 325 Mg Tab, 325 MG PO QHS HELD FOR 7 DAYS PRIOR TO SURGERY, PT DID TAKE 81MG ASA FOR THE LAST 7 DAYS Cholecalciferol (Vitamin D3) (Vitamin D3) 1,000 Unit Tablet, 5,000 UNITS PO DAILY Docusate Sodium (Docusate Sodium) 100 Mg Capsule, 100 MG PO BID Exenatide Microspheres (Bydureon) 2 Mg Inj, 2 MG SC 1XWK WEDNESDAY MORNING Furosemide (Furosemide) 20 Mg Tablet, 20 MG PO BID TAKES AM/1800 Insulin Glargine,Hum.rec.anlog (Lantus Solostar) 100 Unit/Ml Inj, 54 UNITS SC QHS Insulin Human Lispro (Novolog) 100 Unit/1 Ml Vial, 1 DOSE SC AC PER SLIDING SCALE Lisinopril (Lisinopril) 5 Mg Tablet, 5 MG PO DAILY Omeprazole (Omeprazole) 20 Mg Capsule.dr, 20 MG PO DAILY Pioglitazone HCl (Pioglitazone HCl) 30 Mg Tablet, 30 MG PO DAILY Simvastatin (Simvastatin) 20 Mg Tab, 20 MG PO QHS Topiramate (Topiramate) 25 Mg Tablet, 25 MG PO BID Scheduled PRN Oxycodone/Acetaminophen (Oxycodone-Acetaminophen 5-325) 1 Each Tablet, 1 TAB PO Q4H PRN for MODERATE/SEVERE PAIN (PS 5-10) Sildenafil Citrate (Viagra) 100 Mg Tab, 100 MG PO DAILY PRN for ERECTILE DYSFUNCTION Allergies Coded Allergies: No Known Allergies (Unverified , 02/28/20) A-FIB/CHADSVASC A-FIB History Current/History of A-Fib/PAF?: No Current PO Anticoag Therapy: No Age/Risk Factor Scoring CHADSVASC: CHADSVASC Response (Comments) Value Age Risk Factor Age 65-74 years old 1 Gender Risk Factor Male 0 Hx of CHF No 0 Hx of HTN Yes 1 Hx of Stroke/TIA/or VTE No 0 Hx of Diabetes Yes 1 Hx of Vascular Disease No 0 Total 3 Treatment Treatment ordered: Other Other anticoagulant ordered: heparin Current Medications Current Medications Medications (Trade) Dose Ordered Sig/Zarina Route PRN Reason Start Time Stop Time Status Last Admin Dose Admin Acetaminophen (Tylenol Tab) 650 mg Q4HP PRN PO MILD PAIN or TEMP > 101 06/04/20 07:45 06/05/20 08:59 Allopurinol (Zyloprim) 200 mg DAILY PO 06/04/20 09:00 06/06/20 10:34 Amitriptyline HCl (Elavil) 25 mg QHS PO 06/04/20 21:00 06/05/20 20:58 Cefazolin Sodium 1 gm/Dextrose 50 ml @ 100 mls/hr Q8H IV 06/04/20 16:00 06/05/20 00:29 DC 06/05/20 00:02 Ciprofloxacin (Cipro) 500 mg BID@06,18 PO 06/05/20 06:00 06/06/20 17:14 Dextrose (Dextrose 50%) 25 ml ASDIRECTED PRN IV SEE LABEL COMMENTS 06/04/20 07:45 Docusate Sodium (Colace) 100 mg BID PO 06/04/20 21:00 06/06/20 10:32 Fentanyl Citrate (Sublimaze) 25 mcg Q5MP PRN IV PAIN LEVEL 5-10 06/04/20 13:00 06/04/20 14:00 DC Furosemide (Lasix) 20 mg BID@0900,1700 PO 06/05/20 09:00 06/06/20 17:15 Furosemide (Lasix) 20 mg DAILY PO 06/04/20 09:00 06/04/20 19:10 DC 06/04/20 15:42 Glucagon (Glucagon) 1 mg ASDIRECTED PRN SC SEE LABEL COMMENTS 06/04/20 07:45 Glucose (Glucose) 16 GM ASDIRECTED PRN PO SEE LABEL COMMENTS 06/04/20 07:45 Guaifenesin (Robitussin Tab) 200 mg Q4HP PRN PO COUGH 06/05/20 15:00 06/05/20 16:29 Heparin Sodium (Porcine) (Heparin) 5,000 units Q8H SC 06/04/20 22:00 06/06/20 13:49 Home Med (Med Rec Complete!) ASDIRECTED XX 06/04/20 16:30 06/04/20 16:23 DC Hydromorphone HCl (Dilaudid) 0.2 mg Q5MP PRN IV PAIN LEVEL 4-7 06/04/20 13:00 06/04/20 14:00 DC 06/04/20 13:12 Insulin Human Lispro (HumaLOG INSULIN) See Protocol Table AC SC 06/04/20 12:00 06/06/20 17:15 Insulin Human Lispro (HumaLOG INSULIN) See Protocol Table QHS SC 06/04/20 21:00 06/05/20 21:00 Lactated Ringer's 1,000 ml @ 100 mls/hr Q10H IV 06/04/20 13:00 06/04/20 13:19 DC Lisinopril (Prinivil) 5 mg DAILY PO 06/04/20 09:00 06/06/20 10:34 Morphine Sulfate (Morphine Sulfate Inj) 2 mg Q4H PRN IV SEVERE PAIN (PS 8-10) 06/04/20 07:45 Omeprazole (PriLOSEC) 20 mg DAILY PO 06/04/20 09:00 06/06/20 10:32 Ondansetron HCl (ZOFRAN INJection) 4 mg Q4HP PRN IV NAUSEA OR VOMITING 06/04/20 13:00 06/04/20 14:00 DC Ondansetron HCl (ZOFRAN INJection) 4 mg Q6HP PRN IV NAUSEA OR VOMITING 06/04/20 07:45 Oxycodone HCl (Roxicodone, Oxyir) 5 mg ASDIRECTED PRN PO PAIN LEVEL 1-4 06/04/20 13:00 06/04/20 14:00 DC 06/04/20 13:18 Oxycodone/ Acetaminophen (Percocet 5mg/ 325mg Tablet) 1 tab Q4H PRN PO MILD/MODERATE PAIN (PS 1-7) 06/04/20 07:45 Oxycodone/ Acetaminophen (Percocet 5mg/ 325mg Tablet) 2 tab Q4HP PRN PO MODERATE/SEVERE PAIN (PS 5-10) 06/04/20 07:45 06/06/20 17:14 Sodium Chloride 1,000 ml @ 50 mls/hr Q20H IV 06/04/20 07:32 06/05/20 08:18 DC 06/05/20 04:52 Topiramate (TopAMAX) 25 mg BID PO 06/04/20 21:00 06/06/20 10:34 Topiramate (TopAMAX) 50 mg QHS PO 06/04/20 21:00 06/04/20 19:11 Kaitlyn Khan MD Jun 06, 2020 15:57
[2020-06-06 16:30] LABS: NT-PRO BNP 309 PG/ML (<125); TROPONIN I < 0.02 NG/ML (< 0.10)
--- NOTE | 2020-06-06 20:44 | REPVR ---
PROCEDURE INFORMATION: Exam: CT Chest Without Contrast Exam date and time: 06/06/2020 7:49 PM Age: 70 years old Clinical indication: Abnormal findings; Abnormal radiologic exam of lung or chest; Additional info: Intersitial lung disease pattern on cxr, hypoxia TECHNIQUE: Imaging protocol: Computed tomography of the chest without contrast. 3D rendering (Not supervised by radiologist): MIP and/or 3D reconstructed images were created by the technologist. Radiation optimization: All CT scans at this facility use at least one of these dose optimization techniques: automated exposure control; mA and/or kV adjustment per patient size (includes targeted exams where dose is matched to clinical indication); or iterative reconstruction. COMPARISON: CR Chest, 2 view PA, Lat 06/06/2020 2:45 PM FINDINGS: Heart: The heart is normal in size. Mediastinal space: There is a metallic ring surrounding the lower esophagus at the gastroesophageal junction. There is a small catheter projecting to this from the subcutaneous region anteriorly. There is interstitial stranding density in the periphery of the lungs with a few scattered bulla. This is probably is the result of chronic interstitial lung disease. Considerations for chronic interstitial lung disease include sarcoidosis, collagen vascular disease, histiocytosis, idiopathic pulmonary fibrosis. Normal appearing trachea. Aorta: The aorta appears normal in size. Lymph nodes: There are approximately 10 lymph nodes within the mediastinum measuring 5 mm to 1 cm. There is a 3 cm conglomerate of lymph nodes in the subcarinal location. Bones/joints: There is prominent anterior osteophyte formation of the thoracic spine. IMPRESSION: 1. There is interstitial stranding density throughout the periphery of the lungs probably the result chronic interstitial lung disease. 2. There are a few mediastinal lymph nodes ranging in size from 5 mm to 1 cm and also subcarinal lymph nodes. Electronically signed by: Keith Kauffman On 06/06/2020 20:43:49 PM
[2020-06-06] MEDS: AMITRIPTYLINE 25 MG TAB PO SCH (21:25)
[2020-06-06 22:00] VITALS: BP 133/65
[2020-06-07 02:00] VITALS: BP 107/62
[2020-06-07] MEDS: CIPROFLOXACIN 500MG TABLET PO SCH (05:57)
[2020-06-07] MEDS: HEPARIN SOD (PORCINE) 5000UNITS/ML 1ML VIAL/SYRINGE SC SCH ×2 (05:57→14:07)
[2020-06-07 06:00] VITALS: BP 108/62
[2020-06-07 08:07] LABS: HEMATOCRIT 40.1 % (42.0-52.0); HEMOGLOBIN 12.8 g/dl (13.5-17.5); MEAN CORPUSCULAR HEMOGLOBIN 30.1 pg (27.0-33.0); MEAN CORPUSCULAR HGB CONC 31.9 g/dl (32.0-36.5); MEAN CORPUSCULAR VOLUME 94.4 fl (80.0-96.0); PLATELET COUNT, AUTOMATED 171 10^3/uL (150-450); RED BLOOD COUNT 4.25 10^6/uL (4.30-6.10); WHITE BLOOD COUNT 8.1 10^3/uL (4.0-10.0)
[2020-06-07 08:22] LABS: CALCIUM LEVEL 8.5 MG/DL (8.8-10.2); CREATININE FOR GFR 1.83 MG/DL (0.70-1.30); GLOMERULAR FILTRATION RATE 38.9 (>42); POTASSIUM SERUM 4.9 MEQ/L (3.5-5.1)
[2020-06-07] MEDS: HumaLOG INSULIN (NovoLOG) PER UNIT SC SCH ×2 (08:34→12:07)
[2020-06-07 08:35] VITALS: BP 112/68
[2020-06-07] MEDS: OMEPRAZOLE 20 MG CAP PO SCH (08:35)
[2020-06-07] MEDS: FUROSEMIDE 20 MG TAB PO SCH (08:35)
[2020-06-07] MEDS: DOCUSATE SODIUM 100 MG CAP PO SCH (08:35)
[2020-06-07] MEDS: TOPIRAMATE (TopAMAX) 25 MG TAB PO SCH (08:35)
[2020-06-07] MEDS: lisinopriL 5 MG TAB PO SCH (08:35)
[2020-06-07] MEDS: allopurinoL 100 MG TAB PO SCH (08:35)
[2020-06-07] MEDS: PERCOCET 5MG/325MG TAB PO PRN ×2 (08:45→14:08)
--- NOTE | 2020-06-07 08:56 | IPNPDOC ---
Subjective Review oF Systems Chief Complaint The patient is a 70-year-old male admitted with a reason for visit of Prostate Cancer. Events since Last Encounter No acute events o/n. Good pain control. No n/v. Ambulating well, but still desaturating w/ ambulation. Tolerating diet. No f/c/ns. Objective Physical Examination General Exam: Alert, Cooperative, No Acute Distress ABDOMEN EXAM: Soft, Tenderness (mild), Other (incisions clean/dry/intact; dressings from GILSON site dry) Skin Exam: Nl turgor and temperature Neuro Exam: Normal Speech Psych Exam: Mental status NL, Mood NL Other physical findings catheter draining clear urine Vital Signs/I&O Vital Signs Date Time Temp Pulse Resp B/P (MAP) Pulse Ox O2 Delivery O2 Flow Rate FiO2 06/07/20 08:45 16 06/07/20 08:35 112/68 06/07/20 06:00 98.2 71 100 Nasal Cannula 2.0 06/04/20 12:30 100 I&O- Last 24 Hours up to 6 AM 06/07/20 06:00 Intake Total 620 ml Output Total 1985 ml Balance -1365 ml Laboratory Data Labs 24H Laboratory Tests 2 06/06/20 15:43: Troponin I < 0.02, VC-Gbv-[id number]-Type Natriuretic Peptide 309H 06/07/20 06:54: Nucleated Red Blood Cells % (auto) 0.0, Anion Gap 5L, Glomerular Filtration Rate 38.9L, Calcium Level 8.5L CBC/BMP Laboratory Tests 06/07/20 06:54 Assessment/Plan Date Seen The patient was seen on 06/07/20. Patient Summary This is a 70 y/o M POD3 s/p RALP w/ BPLND. He feels well. Hospitalist service consulted yesterday for continued desats w/ ambulation. Plan/VTE VTE Prophylaxis Ordered?: Yes VTE Exclusion Pharmacological: N/A:VTE Prophy Ordered Plan/Urinary Catheter Reason for insertion/continuin: Other-document below Plan - catheter to stay in for at least 7 days - percocet prn pain - cont home meds - appreciate hospitalist consult - desats likely due to chronic lung disease - might need to go home on supplemental O2 - SCDs when in bed - SQH - incentive spirometry - diabetic diet - discharge home pending clearance from hospitalist service SONIDO NGUYEN MD Jun 07, 2020 08:56
--- NOTE | 2020-06-07 18:31 | IPNPDOC ---
Date Seen The patient was seen on 06/07/20. Progress Note SUBJECTIVE: CT chest showed questionable interstitial lung disease. Hypoxic with ambulation RA into 70's, improved to 89% on 3 L NC. Required 1 L NC at rest for O2 saturation of 90%. Will need d/c with home O2 ATC as mentioned AND need oxygen port for CPAP machine. Home health notified. Denies increased shortness of breath, n/v/d, fevers, chest pain. PHYSICAL EXAMINATION: VITAL SIGNS: Please see below GENERAL APPEARANCE: NAD, resting at bedside chair HEENT: AT/NC, corrective lenses in place, EOM intact, nasal cannula in place NECK: large diameter CARDIOVASCULAR: Murmur + chronic,NSR . S1S2 +, no rubs or gallops LUNGS: Crackles bilaterally, mild. decreased bilaterally from what normal is. No wheezing, rhonchi or rales. ABDOMEN: obese abdomen, nontender, nondistended, BS + 4 quad MUSCULOSKELETAL: No atrophy, ROM not tested EXTREMITIES: +2 pitting edema in bilateral lower ext, pulses + in all extremities and strong NEUROLOGICAL: CN 2-12 intact, no focal deficits. No sensory or motor deficits. PSYCHIATRIC: Mood and affect appropriate. LABORATORY DATA: See below. IMAGING: CXR: diffuse interstitial fibrosis pattern, unchanged from prior CXR. NAD CT chest: 1. There is interstitial stranding density throughout the periphery of the lungs probably the result chronic interstitial lung disease. 2. There are a few mediastinal lymph nodes ranging in size from 5 mm to 1 cm and also subcarinal lymph nodes. TTE 04/16/2020: LVEF 60-65%, grade I LV diastolic dysfunction, mild , small pericardial effusion ASSESSMENT: 70 y/o M POD2 robotic lap radial prostatectomy with bilateral pelvic lymph node dissection, hx of prostate cancer with worsening SOB, hypoxia. PLAN: 1. Shortness of breath likely chronic respiratory failure and hypoxia, not previously diagnosed. COPD vs. interstitial lung disease are possibilities. Will need home O2 as ordered and oxygen port for CPAP machine he uses nightly. Home care notified. D/c home today with prior home meds, inhalers. Recommend referral by PCP to pulmonary for PFTs and further treatment. 2. Sinus arrhythmia on ECG. Currently NSR. Patient states to have occasional palpitations associated with SOB. Trop neg, BNP <350. Monitor on tele overnight. F/u with PCP and, if needed, cardiology o/p. 3. Lower ext edema, bilaterally. Possibly lymphedema, recommend teds. C/w lasix BID. 4. ARMIDA, nightly CPAP. C/w current treatment. 5. Prostate cancer, recent diagnosis. POD2 robotic lap radial prostatectomy with bilateral pelvic lymph node dissection. Urology primary, managing. Has not seen heme/onc. 6. CKD Stage III. Cr near baseline at 1.78. F/u with Dr. Parker o/p. 7. DM type II. BS 189 this AM, on ISS. Can add daily levemir if to stay. C/w consistent carb diet, AC/HS FS, ISS AC/HS. F/u with Dr. Jennings o/p. DISPOSITION: Hopeful for home today with home O2. urology primary. VS, I&O, 24H, Paulina Vital Signs/I&O Vital Signs Date Time Temp Pulse Resp B/P (MAP) Pulse Ox O2 Delivery O2 Flow Rate FiO2 06/07/20 14:38 18 06/07/20 09:00 0.5 06/07/20 08:35 112/68 06/07/20 06:00 98.2 71 100 Nasal Cannula 06/04/20 12:30 100 I&O- Last 24 Hours up to 6 AM 06/07/20 06:00 Intake Total 620 ml Output Total 1985 ml Balance -1365 ml Laboratory Data 24H LABS Laboratory Tests 2 06/07/20 06:54: Nucleated Red Blood Cells % (auto) 0.0, Anion Gap 5L, Glomerular Filtration Rate 38.9L, Calcium Level 8.5L CBC/BMP Laboratory Tests 06/07/20 06:54 Current Medications Current Medications Medications (Trade) Dose Ordered Sig/Zarina Route PRN Reason Start Time Stop Time Status Last Admin Dose Admin Acetaminophen (Tylenol Tab) 650 mg Q4HP PRN PO MILD PAIN or TEMP > 101 06/04/20 07:45 06/07/20 16:29 DC 06/05/20 08:59 Allopurinol (Zyloprim) 200 mg DAILY PO 06/04/20 09:00 06/07/20 16:29 DC 06/07/20 08:35 Amitriptyline HCl (Elavil) 25 mg QHS PO 06/04/20 21:00 06/07/20 16:29 DC 06/06/20 21:25 Cefazolin Sodium 1 gm/Dextrose 50 ml @ 100 mls/hr Q8H IV 06/04/20 16:00 06/05/20 00:29 DC 06/05/20 00:02 Ciprofloxacin (Cipro) 500 mg BID@06,18 PO 06/05/20 06:00 06/07/20 16:29 DC 06/07/20 05:57 Dextrose (Dextrose 50%) 25 ml ASDIRECTED PRN IV SEE LABEL COMMENTS 06/04/20 07:45 06/07/20 16:29 DC Docusate Sodium (Colace) 100 mg BID PO 06/04/20 21:00 06/07/20 16:29 DC 06/07/20 08:35 Fentanyl Citrate (Sublimaze) 25 mcg Q5MP PRN IV PAIN LEVEL 5-10 06/04/20 13:00 06/04/20 14:00 DC Furosemide (Lasix) 20 mg BID@0900,1700 PO 06/05/20 09:00 06/07/20 16:29 DC 06/07/20 08:35 Furosemide (Lasix) 20 mg DAILY PO 06/04/20 09:00 06/04/20 19:10 DC 06/04/20 15:42 Glucagon (Glucagon) 1 mg ASDIRECTED PRN SC SEE LABEL COMMENTS 06/04/20 07:45 06/07/20 16:29 DC Glucose (Glucose) 16 GM ASDIRECTED PRN PO SEE LABEL COMMENTS 06/04/20 07:45 06/07/20 16:29 DC Guaifenesin (Robitussin Tab) 200 mg Q4HP PRN PO COUGH 06/05/20 15:00 06/07/20 16:29 DC 06/05/20 16:29 Heparin Sodium (Porcine) (Heparin) 5,000 units Q8H SC 06/04/20 22:00 06/07/20 16:29 DC 06/07/20 14:07 Home Med (Med Rec Complete!) ASDIRECTED XX 06/04/20 16:30 06/04/20 16:23 DC Hydromorphone HCl (Dilaudid) 0.2 mg Q5MP PRN IV PAIN LEVEL 4-7 06/04/20 13:00 06/04/20 14:00 DC 06/04/20 13:12 Insulin Human Lispro (HumaLOG INSULIN) See Protocol Table AC SC 06/04/20 12:00 06/07/20 16:29 DC 06/07/20 12:07 Insulin Human Lispro (HumaLOG INSULIN) See Protocol Table QHS NV 06/04/20 21:00 06/07/20 16:29 DC 06/05/20 21:00 Lactated Ringer's 1,000 ml @ 100 mls/hr Q10H IV 06/04/20 13:00 06/04/20 13:19 DC Lisinopril (Prinivil) 5 mg DAILY PO 06/04/20 09:00 06/07/20 16:29 DC 06/07/20 08:35 Morphine Sulfate (Morphine Sulfate Inj) 2 mg Q4H PRN IV SEVERE PAIN (PS 8-10) 06/04/20 07:45 06/07/20 16:29 DC Omeprazole (PriLOSEC) 20 mg DAILY PO 06/04/20 09:00 06/07/20 16:29 DC 06/07/20 08:35 Ondansetron HCl (ZOFRAN INJection) 4 mg Q4HP PRN IV NAUSEA OR VOMITING 06/04/20 13:00 06/04/20 14:00 DC Ondansetron HCl (ZOFRAN INJection) 4 mg Q6HP PRN IV NAUSEA OR VOMITING 06/04/20 07:45 06/07/20 16:29 DC Oxycodone HCl (Roxicodone, Oxyir) 5 mg ASDIRECTED PRN PO PAIN LEVEL 1-4 06/04/20 13:00 06/04/20 14:00 DC 06/04/20 13:18 Oxycodone/ Acetaminophen (Percocet 5mg/ 325mg Tablet) 1 tab Q4H PRN PO MILD/MODERATE PAIN (PS 1-7) 06/04/20 07:45 06/07/20 16:29 DC Oxycodone/ Acetaminophen (Percocet 5mg/ 325mg Tablet) 2 tab Q4HP PRN PO MODERATE/SEVERE PAIN (PS 5-10) 06/04/20 07:45 06/07/20 16:29 DC 06/07/20 14:08 Sodium Chloride 1,000 ml @ 50 mls/hr Q20H IV 8/25/20 07:32 06/05/20 08:18 DC 06/05/20 04:52 Topiramate (TopAMAX) 25 mg BID PO 06/04/20 21:00 06/07/20 16:29 DC 06/07/20 08:35 Topiramate (TopAMAX) 50 mg QHS PO 06/04/20 21:00 06/04/20 19:11 DC Allergies Coded Allergies: No Known Allergies (Unverified , 02/28/20) Kaitlyn Clark MD Jun 07, 2020 18:31
--- NOTE | 2020-06-16 18:06 | REP ---
CHEST X-RAY: 2-VIEWS HISTORY: Hypoxia. COMPARISON: Chest x-ray 05/14/2020. FINDINGS: Monitoring electrodes are seen. The lungs are symmetrically aerated. No acute infiltrate is seen. There is a peripheral pattern of interstitial fibrosis mild degree and unchanged from the 05/14/2020 study. Heart is not enlarged. No pleural effusion is seen. There are degenerative changes in the thoracic spine. IMPRESSION: Interstitial fibrosis pattern in the lung mcneil, unchanged. Otherwise, no acute disease. MTDD
--- NOTE | 2020-06-28 15:15 | ECGEPIP ---
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
--- NOTE | 2020-07-04 10:11 | DSES ---
DATE OF ADMISSION: 06/04/2020 DATE OF DISCHARGE: 06/07/2020 ADMISSION DIAGNOSIS: Prostate cancer. DISCHARGE DIAGNOSES: * Prostate cancer. * Chronic respiratory failure and hypoxia. ADMITTING PHYSICIAN: Avery Rome MD. DISCHARGE PHYSICIAN: Avery Rome MD. PROCEDURE PERFORMED: Robotic-assisted laparoscopic radical prostatectomy with bilateral pelvic lymph node dissection on June 04, 2020. HISTORY OF PRESENT ILLNESS: This is a 70-year-old male who was admitted after undergoing the above listed procedure. HOSPITALIZATION COURSE: The patient underwent a robotic radical prostatectomy with bilateral pelvic lymph node dissection on June 04, 2020. He was admitted postoperatively. On post op day 1, he noted a moderate amount of incisional pain. He did have some difficulty ambulating because of this. He was also noted to have some difficulty being weaned off of the supplemental oxygen with note that he was not requiring oxygen at home. On post op day 2, his pain was much better controlled and ambulating well. He was tolerating a regular diet. His IV fluids had been discontinued. His main difficulty on post op day 2 was that he continued to have difficulty being weaned off of supplemental oxygen. Specifically, when he ambulated off of oxygen, his oxygen saturation dropped to something around 70%. While doing so, he was not short of breath. The Hospitalist Service was consulted to evaluate him and aid in treatment of his hypoxia. A cardiac workup was done and was negative for signs of a myocardial infarction. A CAT scan of the chest was performed and was negative for pulmonary embolism. It did appear to have chronic changes in his lungs consistent with his history of smoking. It was deemed that it was likely that the patient had chronic hypoxia at baseline and might have actually benefited from being on oxygen at home beforehand. By post op day 3, his pain was still well controlled. He had an ambulatory desaturation test and the decision was made to send him home on supplemental oxygen. The amount that was required was determined and it was recommended that he follow up with pulmonary, as well as his web analytics specialist as an outpatient. Of note, his Korey-Tuttle drain was removed. His lab work throughout his hospital stay was notable for hemoglobin which was stable around 13. His serum creatinine came down to his baseline at around 1.8. He had very good urine output. He was therefore, discharged to home on post op day 3 with his catheter in place. PLAN: The plan is for him to follow up in the Urology Clinic in approximately one week for pathology results and for catheter removal. He will also follow up with his web analytics specialist as an outpatient and he will likely need a referral from his primary care physician to send him to pulmonary for his hypoxia. SALVADOR
== END 2020-06-07 16:29 | disposition home or self-care (01) | DRG 713 ==
LOC: M OR 06:01 → M MSPAV 14:55
PROVIDERS: ADMIT Urology; ATTEND Urology
PROC: 07BC4ZX Excision of Pelvis Lymphatic, Percutaneous Endoscopic Approach, Diagnostic (ICD-10-PCS; 2020-06-04)
PROC: 0VT08ZZ Resection of Prostate, Via Natural or Artificial Opening Endoscopic (ICD-10-PCS; principal; 2020-06-04 07:30)
DX: C61 Malignant neoplasm of prostate (principal); J96.11 Chronic respiratory failure with hypoxia; N18.3 Chronic kidney disease, stage 3 (moderate); G47.33 Obstructive sleep apnea (adult) (pediatric); K21.9 Gastro-esophageal reflux disease without esophagitis; I12.9 Hypertensive chronic kidney disease with stage 1 through stage 4 chronic kidney disease, or unspecified chronic kidney disease; E11.9 Type 2 diabetes mellitus without complications; Z87.891 Personal history of nicotine dependence; Z79.899 Other long term (current) drug therapy; Z79.82 Long term (current) use of aspirin; Z79.4 Long term (current) use of insulin

== ENCOUNTER → 2020-06-27 | Outpatient (REF) | payer OTHER ==
[~2020-06-27] MED LIST changes: +ASA 81MG; +DOCU100C16 PO; +INSUH10VL SC; +OMEP1CAP73 PO; +PERCOCET PO; +PIOG30TA PO; +SUPRSOL2; +TAMS1CAP17 PO; +TOPI25TA10 PO
== END ==
LOC: M SMT 17:07
PROVIDERS: ATTEND Nurse Practitioner Family
DX: N39.0 Urinary tract infection, site not specified (principal)

== ENCOUNTER → 2020-07-08 | Outpatient (REF) | payer OTHER | LOC: M SMT 17:04 | PROVIDERS: ATTEND Nurse Practitioner Family | DX: C61 Malignant neoplasm of prostate (principal) ==

== ENCOUNTER → 2020-07-08 | Outpatient (REF) | payer OTHER ==
[2020-07-11 16:08] LABS: ANCA-ATYPICAL <1:20 titer (Neg:<1:20); ANTI DS-DNA AB Negative (Negative); ANTINUCLEAR ANTIBODIES DIRECT Negative (Negative); CYTOPLASMIC NEUTROP AB ANCA-C <1:20 titer (Neg:<1:20); PERINUCLEAR AB ANCA-P <1:20 titer (Neg:<1:20); RNP ANTIBODIES <0.2 AI (0.0-0.9); SJOGREN'S ANTI SS-A <0.2 AI (0.0-0.9); SJOGREN'S ANTI SS-B <0.2 AI (0.0-0.9); SMITH ANTIBODIES <0.2 AI (0.0-0.9)
== END ==
LOC: M LAB REF 17:02
PROVIDERS: ATTEND Internal Medicine Pulmonary Disease
DX: J84.10 Pulmonary fibrosis, unspecified (principal); C61 Malignant neoplasm of prostate

== ENCOUNTER → 2020-08-26 | Outpatient (CLI) | payer OTHER ==
[2020-08-26 14:57] LABS: BASO # 0.1 10^3/uL (0.0-0.2); BASO % 0.5 % (0.0-1.0); EOS # 0.4 10^3/uL (0.0-0.5); EOS % 3.2 % (0.0-3.0); HEMATOCRIT 47.4 % (42.0-52.0); HEMOGLOBIN 14.5 g/dl (13.5-17.5); LYMPH % 18.3 % (24.0-44.0); MEAN CORPUSCULAR HEMOGLOBIN 28.2 pg (27.0-33.0); MEAN CORPUSCULAR HGB CONC 30.6 g/dl (32.0-36.5); MONO % 9.1 % (0.0-5.0); NEUTROPHILS # 7.5 10^3/uL (1.5-8.5); NEUTROPHILS % 68.4 % (36.0-66.0); PLATELET COUNT, AUTOMATED 279 10^3/uL (150-450); RED BLOOD COUNT 5.15 10^6/uL (4.30-6.10)
[2020-08-26 15:32] LABS: CREATININE, URINE 43.6 MG/DL; MAU/CREAT RATIO 605.5 MCG/MG (0.0-30.0)
[2020-08-26 15:32] LABS: ALBUMIN 3.3 GM/DL (3.2-5.2); BILIRUBIN,TOTAL 0.4 MG/DL (0.2-1.0); CALCIUM LEVEL 9.6 MG/DL (8.8-10.2); CHOLESTEROL RISK RATIO 4.638 (<5); CREATININE FOR GFR 1.63 MG/DL (0.70-1.30); GLOMERULAR FILTRATION RATE 44.5 (>42); THYROID STIMULATING HORMONE 0.936 uIU/ML (0.358-3.740); TOTAL PROTEIN 7.2 GM/DL (6.4-8.2)
[2020-08-26 15:33] LABS: TOTAL 25(OH) VITAMIN D 56.5 NG/ML (30.0-100.0)
== END ==
LOC: M LAB 13:13
PROVIDERS: ATTEND Nurse Practitioner Family
DX: I10 Essential (primary) hypertension (principal)

== ENCOUNTER → 2020-10-07 | Outpatient (CLI) | payer OTHER | LOC: M LAB 13:29 | PROVIDERS: ATTEND Urology | DX: C61 Malignant neoplasm of prostate (principal) | CPT/HCPCS: 36415; 51798; 84153; G0463 ==

== ENCOUNTER → 2020-11-18 | Outpatient (CLI) | payer OTHER ==
[~2020-11-18] MED LIST changes: -AMIT25TA PO; +AMIT25TA17 PO; -GLYB5TA PO; +GLYB5TAB6 PO; -LISI-542 PO; +LISI-898 PO
== END ==
LOC: M LAB 13:07
PROVIDERS: ATTEND Urology
DX: C61 Malignant neoplasm of prostate (principal)

== ENCOUNTER → 2020-12-27 | Outpatient (CLI) | payer OTHER | LOC: M LAB 13:05 | PROVIDERS: ATTEND Urology | DX: C61 Malignant neoplasm of prostate (principal) ==

== ENCOUNTER → 2021-01-10 | Outpatient (CLI) | payer OTHER ==
[~2021-01-10] MED LIST changes: +BICA50TA9 PO; +MULT-90 PO; +POTA1TAB14 PO; +PROAAER10 INH
--- NOTE | 2021-01-10 16:14 | RADONC.CN ---
Radiation Oncology Hx/Consult Radiation Oncology Consult Date of Service: Jan 10, 2021 Pt Identifier Kevin Askew is a 70 year old male former smoker with agent orange exposure and a history of prostate cancer [id number] Nicho 4+4=8 s/p RP on 06/04/[address] Nguyen showing positive left posterior margin as well as SV+ and TAI+. His post-op PSA was 0.10 on 06/30/20 and has risen further to 0.39 on 12/27/20. He is seen for consideration of salvage therapy. Diagnosis/Treatment History Oncologic History Followed by Dr. Nguyen for elevated PSA and positive TRUS biopsy: 04/23/20 Biopsy: [place] 4+4=8 3/12 cores [place] 4+3=7 2/12 cores [place] 3+3=7 1/12 cores All left sided 6/12 cores+ Elected to pursue RP 06/04/20 RALP [id number] left posterior margin positive R2 resection Post-op PSA: 06/30/20 0.10 10/07/20 0.19 11/18/20 0.33 12/27/20 0.39 IPSS 5 PEDRO LUIS 1 Interval History Here with his supportive . He has ongoing incontinence of urine which has been steadily improving since surgery. He is doing Kegel exercises. He wears 3 depends daily. Worst urine loss is constant small volumes during the day. Worse with movements and strenuous activities. Minimal urine loss at night. He wears O2 at home from interstitial lung disease. He has good volitional stream and emptying, but has dribbling post void. Appetite good and weight stable. Past Medical History: Asthma/ILD DMII HPL HTN Past Surgical History: Cholecystectomy 1979 Family History: Father kidney cancer Social History: 25 pack year former smoker quit in the Drinks 1-2 alcoholic beverages 2 days per week Agent orange exposure Worked in [employer] Allergies / Meds Allergies: Coded Allergies: No Known Allergies (Unverified , 02/28/20) Home Meds Active Scripts Bicalutamide (Bicalutamide) 50 Mg Tablet, 50 MG PO DAILY for 30 Days, #30 TAB Prov:CHERISE SOLIS MD 01/10/21 Oxycodone/Acetaminophen (Oxycodone-Acetaminophen 5-325) 1 Each Tablet, 1 TAB PO Q4H PRN for MODERATE/SEVERE PAIN (PS 5-10) MDD 6, #30 TAB Prov:SONIDO NGUYEN MD 06/06/20 Docusate Sodium (Docusate Sodium) 100 Mg Capsule, 100 MG PO BID, #20 CAP Prov:SONIDO NGUYEN MD 06/06/20 Reported Medications Potassium Chloride (Potassium Chloride) 20 Meq Tablet.er, 20 MEQ PO DAILY, TAB 01/10/21 Multivitamin (Multivitamin) 1 Each Tablet, 1 EACH PO, TAB 01/10/21 Albuterol Sulfate (Proair Hfa) 8.5 Gm Hfa.aer.ad, 2 PUFF INH Q4-6HP PRN for wheezing for 21 Days, #1 INHALER 01/10/21 Topiramate (Topiramate) 25 Mg Tablet, 25 MG PO BID, TAB 06/04/20 Omeprazole (Omeprazole) 20 Mg Capsule.dr, 20 MG PO DAILY, CAP 06/04/20 Insulin Human Lispro (Novolog) 100 Unit/1 Ml Vial, 1 DOSE SC AC PER SLIDING SCALE 06/04/20 Pioglitazone HCl (Pioglitazone HCl) 30 Mg Tablet, 30 MG PO DAILY, TAB 06/04/20 Lisinopril (Lisinopril) 5 Mg Tablet, 5 MG PO DAILY, TAB 06/03/20 Furosemide (Furosemide) 20 Mg Tablet, 20 MG PO BID TAKES AM/1800 06/03/20 Allopurinol (Allopurinol) 100 Mg Tablet, 200 MG PO DAILY, TAB 06/03/20 Cholecalciferol (Vitamin D3) (Vitamin D3) 1,000 Unit Tablet, 5000 UNITS PO DAILY, TAB 02/28/20 Simvastatin (Simvastatin) 20 Mg Tab, 20 MG PO QHS, TAB 04/01/16 Exenatide Microspheres (Bydureon) 2 Mg Inj, 2 MG SC 1XWK, INJ WEDNESDAY MORNING 04/01/16 Insulin Glargine,Hum.rec.anlog (Lantus Solostar) 100 Unit/Ml Inj, 54 UNITS SC QHS, INJ 04/01/16 Aspirin (Aspirin) 325 Mg Tab, 325 MG PO QHS HELD FOR 7 DAYS PRIOR TO SURGERY, PT DID TAKE 81MG ASA FOR THE LAST 7 DAYS 04/01/16 Discontinued Reported Medications Sildenafil Citrate (Viagra) 100 Mg Tab, 100 MG PO DAILY PRN for ERECTILE DYSFUNCTION, TAB 04/01/16 Amitriptyline HCl (Amitriptyline HCl) 25 Mg Tab, 25 MG PO QHS, TAB 04/01/16 Review of Systems General: Reports: Normal Appetite Constitutional: Denies: Chills, Fever, Night Sweats Eyes: Denies: Pain, Vision change HEENT: Denies: Head Aches, Dysphagia, Sore Throat Skin: Denies: Rash, Lesions, Bruising Pulmonary: Denies: Dyspnea, Cough Cardiovascular: Denies: Chest Pain, Palpitations, Edema Gastrointestinal: Denies: Nausea, Vomiting, Abdominal Pain, Diarrhea Genitourinary: Reports: Frequency, Incontinence; Denies: Dysuria Hematologic: Denies: Bruising, Petecchia, Enlarged Lymph Nodes Musculoskeletal: Denies: Neck pain, Back pain Neurological: Denies: Weakness, Numbness, Incoordination Psych: Reports: Mood Normal; Denies: Memory Issues, Thoughts of Self Harm Vital Signs HT 66" Wt 267 lbs BMI 43 T 97.6 P 92 RR 18 BP 128/71 O2 90% on 2L NC Pain 0 Fatigue 2 General Exam: Positive: Alert, Cooperative, No Acute Distress Eye Exam: Positive: PERRLA, EOMI ENT EXAM: Positive: Mucous membr. moist/pink, Pharynx Normal Neck Exam: Negative: Thyromegaly, Lymphadenopathy Chest Exam: Positive: Normal air movement, Rhonchi, Wheezing Heart Exam: Positive: Rate Normal, Murmurs Abdomen Exam: Positive: Soft; Negative: Tenderness Extremity Exam: Negative: Edema Skin Exam: Positive: Nl turgor and temperature Neuro Exam: Positive: Normal Gait, Normal Speech, Cranial Nerves 3-12 NL Psych Exam: Positive: Mental status NL Diagnostic and Laboratory Diagnostic Review Radiologic images, relevant labs and pathology reports were personally reviewed and discussed with Mr. Askew. Assessment and Plan Impression Mr. Askew is a 70 year old male former smoker with agent orange exposure and a history of prostate cancer [id number] Nicho 4+4=8 s/p RP on with Dr. Nguyen showing positive left posterior margin as well as SV+ and TAI+. His post-op PSA was 0.10 on 06/30/20 and has risen further to 0.39 on 12/27/20. He is seen for consideration of salvage therapy. Stage Prostate adenocarcinoma [id number] Nicho 4+4=8 stage IIIB Performance Status ECOG 1 Plan We had an extensive discussion with Mr. Askew regarding the diagnosis at hand and available therapeutic options. He has ongoing incontinence which is improving in time. He is doing Kegel exercises regularly. For his biochemically recurrent prostate cancer s/p RP I explained that a course of salvage EBRT + 6 months of ADT would confer a bPFS probability of ~ 70% per the [facility] nomogram. Because he would benefit from additional time to attempt to regain continence (I explained that his incontinence would likely become permanent if we initiated EBRT now) I proposed that we start his 6 month ADT course in the coming weeks and reevaluate his urinary status in 3 months time, at which point if he is improved we could initiate EBRT. For EBRT I would give 68.4 Gy in 38 fractions to the prostate bed and I would also treat the pelvic LN as per the SPPORT trial there is a bPFS advantage associated with this if the post-op PSA is >0.34. We reviewed the side effects of treatment in detail; hot flashes, low libido, weight gain and fatigue from ADT, as well as, irritative voiding symptoms, loose bowel movements and rarely late rectal bleeding from EBRT. We discussed the logistics of receiving radiation therapy in detail including the need for a 1-time planning session. After discussing the risks, benefits and alternatives to radiation therapy, Mr. Askew was amenable to pursuing radiotherapy. All questions were answered to the patient's satisfaction. We instructed the patient that if there were any questions,concerns or changes in clinical status in the interim to contact us. Recommendations Casodex 50 mg daily for 30 days 45 mg Lupron injection in the next 1-2 weeks Re-evaluation of continence status in 3 months Plan to start EBRT if his continence is improved in 3 months time Billing Statement Total time of [50] minutes was spent preparing for the visit [3], obtaining HPI [5], examining the patient [3], reviewing diagnostic tests [5], discussing management options [20], coordinating care [4], and writing this note [10]. CHERISE SOLIS MD Jan 10, 2021 16:14
== END ==
LOC: M ONCR 12:39
PROVIDERS: ATTEND General Practice
DX: C61 Malignant neoplasm of prostate (principal)

== ENCOUNTER → 2021-01-28 | Outpatient (CLI) | payer OTHER ==
[~2021-01-28] MED LIST changes: +LEUPROLIDE 45MG SYRINGE KIT (LUPRON DEPOT) (FOR ONCOLOGY) IM ONE
--- NOTE | 2021-01-28 14:37 | RADENCPD ---
Date/Time of Encounter Date of Encounter: Jan 28, 2021 Time of Encounter: 14:34 Encounter Patient seen prior to lupron injection today. He is working on his kegels in effort to gain full continence prior to RT We reviewed the rationale for lupron concurrent with salvage RT (increased bPFS and pCSS) We reviewed the side effects expected fatigue, low libido, weight gain etc. He agreed to proceed. Informed consent was obtained. 45 mg lupron administered He will follow up in April 2021, we will obtain PSA/testosterone at that time to confirm response to lupron. If he is continent then, we will proceed with RT CHERISE SOLIS MD Jan 28, 2021 14:37
== END ==
LOC: M ONCR 13:54
PROVIDERS: ATTEND General Practice
DX: C61 Malignant neoplasm of prostate (principal)

== ENCOUNTER 2021-03-24 14:48 | Inpatient (IN) | payer OTHER ==
[~2021-03-24] VITALS: Ht 167.6 cm; Wt 114.2 kg
[~2021-03-24 14:48] MED LIST changes: -LEUPROLIDE 45MG SYRINGE KIT (LUPRON DEPOT) (FOR ONCOLOGY) IM ONE
[2021-03-24 15:14] LABS: BASO % 0.4 % (0.0-1.0); EOS # 0.2 10^3/uL (0.0-0.5); EOS % 2.1 % (0.0-3.0); HEMATOCRIT 49.8 % (42.0-52.0); HEMOGLOBIN 16.2 g/dl (13.5-17.5); LYMPH # 1.9 10^3/uL (1.5-5.0); LYMPH % 17.3 % (24.0-44.0); MEAN CORPUSCULAR HEMOGLOBIN 29.2 pg (27.0-33.0); MEAN CORPUSCULAR HGB CONC 32.5 g/dl (32.0-36.5); MEAN CORPUSCULAR VOLUME 89.7 fl (80.0-96.0); MONO # 1.1 10^3/uL (0.0-0.8); MONO % 9.5 % (2.0-8.0); NEUTROPHILS # 7.8 10^3/uL (1.5-8.5); NEUTROPHILS % 70.1 % (36.0-66.0); PLATELET COUNT, AUTOMATED 188 10^3/uL (150-450); RED BLOOD COUNT 5.55 10^6/uL (4.30-6.10); WHITE BLOOD COUNT 11.1 10^3/uL (4.0-10.0)
[2021-03-24] MEDS ORDERED: COMBIVENT RESPIMAT 100-20MCG INHALER 4GM INH ONE (15:15)
[2021-03-24 15:18] LABS: ABG BASE EXCESS -1.5 (-2.0-2.0); ABG HCO3 22.5 MEQ/L (22.0-26.0); ABG O2 SATURATION 97.6 % (95.0-99.0); ABG PARTIAL PRESSURE CO2 35.9 mmHg (35.0-45.0); ABG PARTIAL PRESSURE O2 96.2 mmHg (75.0-100.0); ABG STANDARD HCO3 23.2 MEQ/L (22.0-26.0); ABG TOTAL CO2 23.6 MEQ/L (23.0-31.0); ABG pH (ARTERIAL) 7.414 UNITS (7.350-7.450)
[2021-03-24] MEDS ORDERED: dexameTHASONE 20MG/5ML VIAL (J1100 PER 1MG) IV ONE (15:20)
--- NOTE | 2021-03-24 15:41 | REP ---
INDICATION: DYSPNEA/COUGH. COMPARISON: 06/06/2020 TECHNIQUE: Portable FINDINGS: The technique utilized in obtaining the radiograph has magnified the cardiac silhouette and accentuated the interstitial markings. Interstitial fibrotic changes are again seen throughout the lung mcneil. No definite acute patchy parenchymal opacity or pleural effusion has developed. There is cardiomegaly accentuated by technique. There is no change in the osseous structures. IMPRESSION: Stable appearing chronic changes. <Electronically signed by Mian Mendes > 03/24/21 [id number]
[2021-03-24 15:50] LABS: ALBUMIN 3.8 GM/DL (3.2-5.2); BILIRUBIN,DIRECT 0.2 MG/DL (0.0-0.2); BILIRUBIN,TOTAL 0.6 MG/DL (0.2-1.0); CALCIUM LEVEL 9.5 MG/DL (8.8-10.2); CK-MB VALUE MASS 2.4 NG/ML (<3.6); CREATININE FOR GFR 1.81 MG/DL (0.70-1.30); GLOMERULAR FILTRATION RATE 39.4 (>42); MB/CK RELATIVE INDEX 1.27 (< OR =4); POTASSIUM SERUM 4.9 MEQ/L (3.5-5.1); THYROID STIMULATING HORMONE 1.38 uIU/ML (0.358-3.740); THYROXINE (T4) 7.2 UG/DL (4.5-12.0); TOTAL PROTEIN 7.2 GM/DL (6.4-8.2); TROPONIN I 0.04 NG/ML (< 0.10)
--- NOTE | 2021-03-24 16:13 | REP ---
INDICATION: swelling and shortness of breath and hypoxia. COMPARISON: None. TECHNIQUE: Multiple ultrasonographic images of the deep venous structures of the bilateral lower extremity were obtained from the inguinal ligament to the ankle. Venous compression techniques, color doppler imaging, and augmentation techniques were also obtained where appropriate. As per the ACR guidelines the anterior tibial vein can not be effectively evaluated. Only compression techniques in the calf on the peroneal and posterior tibial veins was attempted/performed. FINDINGS: There is no abnormal echogenic material seen within any of the visualized deep venous structures that would suggest acute thrombosis. Coaptation is unremarkable throughout. Doppler interrogation shows an expected response to respiratory variability and augmentation in the thigh. Compression techniques in the calf showed no abnormality. The color flow images show what appears to be a normal vascular pattern throughout the thigh. IMPRESSION: There is no ultrasonographic evidence of deep venous thrombosis involving any of the visualized deep venous structures of the bilateral lower extremity as described above. <Electronically signed by Mian Mendes > 03/24/21
[2021-03-24] MEDS ORDERED: ADVA115A INH (16:27)
[2021-03-24] MEDS ORDERED: FURO40TA2 PO (16:27)
[2021-03-24] MEDS ORDERED: BYDU2INJ7 SC (17:00)
[2021-03-24] MEDS ORDERED: ASPI81TA26 PO (17:00)
[2021-03-24] MEDS ORDERED: NATU1TAB5 PO (17:00)
--- NOTE | 2021-03-24 17:07 | ECGEPIP ---
[facility] - ED Test Date: 2021-03-24 Pat Name: JESSICA NI Department: Room: - Gender: Male Cna: : [id number] Requested By: JO Roque Order Number: [id number] Reading MD: Shasha Roman Measurements Intervals [place] Rate: 67 P: 32 ND: 144 QRS: 16 QRSD: 72 T: -19 QT: 438 QTc: 462 Interpretive Statements Normal sinus rhythm ST & T wave abnormality, consider inferior ischemia ST & T wave abnormality, consider anterior ischemia Prolonged QT no prior Electronically Signed on 03-24-2021 17:06:45 EDT by Shasha Roman
[2021-03-24] MEDS ORDERED: DEXTROSE 50% 50 ML SYRINGE IV PRN (17:35)
[2021-03-24] MEDS ORDERED: GLUCAGON INJ 1MG VIAL SC PRN (17:35)
[2021-03-24] MEDS ORDERED: ALBUTEROL 90 MCG/ACT 8GM HFA INHALER INH PRN (17:35)
[2021-03-24] MEDS ORDERED: GLUCOSE 4GM CHEW TABLET PO PRN (17:35)
[2021-03-24] MEDS ORDERED: ALBUTEROL SULFATE 2.5 MG/0.5 ML INH NEB SOLN NEB PRN (18:15)
--- NOTE | 2021-03-24 18:44 | HPEPDOC ---
[facility] Medical History & Physical Date of Admission Mar 24, 2021 Date of Service: Mar 24, 2021 History and Physical CHIEF COMPLAINT: SOB with worsening hypoxemia especially with exertion HISTORY OF PRESENT ILLNESS: 70 y/o M with UIP, ILD on 2L NC at baseline , ARMIDA on CPAP nightly, CKD stage II, DM type II, hypertension, prostate cancer s/p robotic lap radial prostatectomy with bilateral pelvic lymph node dissection in 05/2020, prior smoker for 25y who is being sent in per recommendation of his casting room operator for worsening GOLDMAN with saturation of only 81% while on 3L NC while exerting himself for work up of his acute on chronic hypoxemic respiratory failure. He denied any recent fever, chills, worsening sputum, hemoptysis, chest pain, leg swelling, orthopnea. In the ED he was hemodynamically stable and saturating well on 2L NC while at rest. Evaluation revealed a WBC of 11.1, Hgb 16.2, platelets 188, Na 137, K 4.9, Cr 1.8 at recent baseline, proBNP of 1172 (was previously 390 in 05/30), negative respiratory panel while CXR showed interstitial fibrotic changes without opacities of effusions with stable cardiomegaly, and bilateral lower extremity venous Doppler US revealed no DVTs. I am now admitting him for workup of the acute on chronic hypoxemic respiratory failure to r/o a PE with a V/Q scan and investigate potential cardiac etiology. ROS: 10 point ROS was negative except as mentioned above. PAST MEDICAL HISTORY: 1. Aortic stenosis 2. ARMIDA uses CPAP night 3. CKD Stage III 4. DM type II 5. Prostate cancer (Dx 04/2020) 6. gerd 7. HTN 8. HLD 9. HFpEF PAST SURGICAL HISTORY: 1. Lap Radical Prostatectomy 2. Right ankle surgery 3. Exploratory laparotomy 4. cholecystectomy 1979 5. Lap Band surgery SOCIAL HISTORY: Tobacco use: Smoker 2 PPD for 25 years, quit 7 years ago. ETOH: Social alcohol use, 1 beer every 1-2 weeks Illicit drug use: Denies IV drug use: Denies Follows with: 1. PCP- Dr. Jil Plascencia, 2. Nephrology- Dr. gonzalez, 3. Cardiology- Dr. Morgan, 4. Endocrinology- Dr. Yash Jennings, Pulm - Dr. Khan FAMILY HISTORY: Father: kidney cancer, HTN. at 92 y/o Mother: DM type II, CAD. at 73 y/o Sister: DM type II. 65 y/o ALLERGIES: Please see below. HOME MEDICATIONS: Please see below. PHYSICAL EXAMINATION: VITAL SIGNS: Please see below GENERAL APPEARANCE: NAD, morbidly obese HEENT: NCAT, EOMI, MMM CARDIOVASCULAR: Systolic murmur, RRR, S1S2 +, no rubs or gallops LUNGS: Wet crackles at the bases and dry velcro-like crackles as you go up the posterior lung mcneil, no wheezing or rhonchi ABDOMEN: obese abdomen, normoactive bowel sounds, nontender, nondistended EXTREMITIES: +2 pitting edema in bilateral lower ext, 2+DP pulses, WWP NEUROLOGICAL: CN 3-12 intact, no focal deficits. No sensory or motor deficits. PSYCHIATRIC: AOx3 LABORATORY DATA and IMAGING: Summarized above CXR: diffuse interstitial fibrosis pattern, unchanged from prior CXR. ASSESSMENT: 70 y/o M with ILD, on 2L NC at baseline , ARMIDA on CPAP nightly, CKD stage II, DM type II, hypertension, prostate cancer s/p robotic lap radial prostatectomy with bilateral pelvic lymph node dissection in 05/2020, prior smoker for 25y who was sent in per recommendation of his casting room operator for worsening GOLDMAN with saturation of only 81% while on 3L NC, who is now being admitted for investigation and management of acute on chronic hypoxemic respiratory failure. PLAN: Acute on chronic hypoxemic respiratory failure with history of UIP, ILD nad HFpEF: -Possibly 2/2 worsening ILD but before than conclusion can be reached will investigate for clot vs. cardiac origin -LE DVT scans were negative -order V/Q scan for tomorrow to assess for possible PE since he cannot get contrast because of chronic renal disease -BNP is elevated and he has edema and crackles but they sound dry i/s/o known fibrosis, will order TTE and will diurese -CXR without evidence of effusions or PNA -Respiratory panel was negative -Duonebs q6h -albuterol q4hp for SOB and wheezing -PT/OT -supplemental O2 to goal >89% -incentive spirometry -s/p dex 10 in the ED. Will give solumedrol 80 mg IV BID for now starting tomorrow AM with goal to taper as he improves HFpEF exacerbation: TTE in 04/16/2020 showed LVEF 60-65%, grade I LV diastolic dysfunction, mild , small pericardial effusion -troponin was negative -EKG was non-ischemic -proBNP was elevated and on exam with some volume overload, will switch from lasix 40 PO daily to 40mg IV BID with goal net negative 2L -strict I/Os -daily weights -2L fluid restriction -will hold ACEi for hemodynamic room for diuresis given recent history of orthostasis and BP meds being down titrated ARMIDA, nightly CPAP -C/w home CPAP Prostate cancer, recent diagnosis. -s/p robotic lap radial prostatectomy with bilateral pelvic lymph node dissection. -f/u outpatient with urology and heme/onc CKD Stage III. Cr near baseline. -F/u with Dr. Gonzalez o/p. DM type II -Levemir -C/w consistent carb diet -AC/HS FS -ISS AC/HS DVT px. SC heparin Vital Signs Vital Signs Date Time Temp Pulse Resp B/P (MAP) Pulse Ox O2 Delivery O2 Flow Rate FiO2 03/24/21 16:15 61 22 145/67 (93) 98 Nasal Cannula 2.0 03/24/21 14:48 97.7 Laboratory Data Labs 24H Laboratory Tests 2 03/24/21 15:02: Immature Granulocyte % (Auto) 0.6, Neutrophils (%) (Auto) 70.1H, Lymphocytes (%) (Auto) 17.3L, Monocytes (%) (Auto) 9.5H, Eosinophils (%) (Auto) 2.1, Basophils (%) (Auto) 0.4, Neutrophils # (Auto) 7.8, Lymphocytes # (Auto) 1.9, Monocytes # (Auto) 1.1H, Eosinophils # (Auto) 0.2, Basophils # (Auto) 0.0, Nucleated Red Blood Cells % (auto) 0.0, Anion Gap 5L, Glomerular Filtration Rate 39.4L, Lactic Acid Level 0.8, Calcium Level 9.5, Total Bilirubin 0.6, Direct Bilirubin 0.2, Aspartate Amino Transf (AST/SGOT) 22, Alanine Aminotransferase (ALT/SGPT) 29, Alkaline Phosphatase 79, Total Creatine Kinase 189, Creatine Kinase MB 2.4, Creatine Kinase MB Relative Index 1.27, Troponin I 0.04, UT-Dao-K-Type Natriuretic Peptide 1172H, Total Protein 7.2, Albumin 3.8, Albumin/Globulin Ratio 1.1, Thyroid Stimulating Hormone (TSH) 1.380, Thyroxine (T4) 7.2 03/24/21 15:07: Blood Gas Bicarbonate Standard 23.2, Arterial Blood pH 7.414, Arterial Blood Partial Pressure CO2 35.9, Arterial Blood Partial Pressure O2 96.2, Arterial Blood Total CO2 23.6, Arterial Blood HCO3 22.5, Arterial Blood Base Excess -1.5, Arterial Blood Oxygen Saturation 97.6 03/24/21 15:09: POC Glucose (Misc Panel) 111H, POC Sodium (Misc Panel) 139, POC Potassium (Misc Panel) 4.9, POC Chloride (Misc Panel) 101, POC Total CO2 (Misc Panel) 28.0H, POC Blood Urea Nitrogen (Misc Panel 46H, POC Ionized Calcium (Misc Panel) 5.2, POC Creatinine (Misc Panel) 1.9H, POC Hematocrit (Misc Panel) 49.0 CBC/BMP Laboratory Tests 03/24/21 15:02 Microbiology Microbiology 03/24/21 Respiratory Virus Panel (PCR) (DESTINY) - Final, Complete 03/24/21 Blood Culture, Received Pending 03/24/21 Blood Culture, Received Pending Home Medications Scheduled Allopurinol (Allopurinol) 100 Mg Tablet, 200 MG PO DAILY Aspirin (Aspirin EC) 81 Mg Tablet.dr, 81 MG PO QHS Cholecalciferol (Vitamin D3) (Vitamin D3) 125 Mcg Tablet, 125 MCG PO DAILY Exenatide Microspheres (Bydureon Bcise) 2 Mg/0.85 Ml Auto.injct, 2 MG SC 1XWK WEDNESDAY MORNINGS Fluticasone Propion/Salmeterol (Advair Hfa 115-21 Mcg Inhaler) 12 Gm Hfa.aer.ad, 2 PUFF INH BID Furosemide (Furosemide) 40 Mg Tablet, 40 MG PO DAILY Insulin Glargine,Hum.rec.anlog (Lantus Solostar) 100 Unit/Ml Inj, 58 UNITS SC QHS Insulin Human Lispro (Novolog) 100 Unit/1 Ml Vial, 1 DOSE SC AC PER SLIDING SCALE Lisinopril (Lisinopril) 5 Mg Tablet, 2.5 MG PO Q2D Multivitamin (Multivitamin) 1 Each Tablet, 2 TAB PO DAILY Potassium Chloride (Potassium Chloride) 20 Meq Tablet.er, 10 MEQ PO DAILY Simvastatin (Simvastatin) 20 Mg Tab, 20 MG PO QHS Scheduled PRN Albuterol Sulfate (Proair Hfa) 8.5 Gm Hfa.aer.ad, 2 PUFF INH Q4H PRN for SOB/WHEEZING Allergies Coded Allergies: No Known Allergies (Unverified , 02/28/20) A-FIB/CHADSVASC A-FIB History Current/History of A-Fib/PAF?: No Current PO Anticoag Therapy: No Age/Risk Factor Scoring CHADSVASC: CHADSVASC Response (Comments) Value Age Risk Factor Age 65-74 years old 1 Gender Risk Factor Male 0 Hx of CHF No 0 Hx of HTN Yes 1 Hx of Stroke/TIA/or VTE No 0 Hx of Diabetes No 0 Hx of Vascular Disease No 0 Total 2 Treatment Treatment ordered: NONE Reason Anticoagulant not given: Not indicated/[id number] MARIAA SHORT MD Mar 24, 2021 18:20
[2021-03-24] MEDS: ADVAIR HFA 115/21MCG INHALER INH SCH (20:00)
[2021-03-24] MEDS: IPRATROPIUM 0.5MG/ALBUTEROL 2.5MG INH SOL UD 3ML (DUONEB) NEB SCH (20:00)
[2021-03-24] MEDS: FUROSEMIDE 40MG/4ML VIAL (J1940) IV SCH (21:47)
[2021-03-24] MEDS: methylPREDNISolone 125MG 2ML VIAL IV SCH (21:47)
[2021-03-24] MEDS: LEVEMIR (INSULIN DETEMIR) 1 UNITS/0.01ML SC SCH (21:48)
[2021-03-24] MEDS: HumaLOG INSULIN (NovoLOG) PER UNIT SC SCH (21:48)
[2021-03-24] MEDS: HEPARIN SOD (PORCINE) 5000UNITS/ML 1ML VIAL/SYRINGE SC SCH (21:49)
[2021-03-24] MEDS: SIMVASTATIN 20 MG TAB PO SCH (21:49)
[2021-03-24] MEDS: ASPIRIN 81MG ENTERIC TABLET PO SCH (21:49)
[2021-03-24 22:00] VITALS: BP 164/69
[2021-03-25] MEDS: IPRATROPIUM 0.5MG/ALBUTEROL 2.5MG INH SOL UD 3ML (DUONEB) NEB SCH ×4 (02:02→19:54)
[2021-03-25] MEDS: HEPARIN SOD (PORCINE) 5000UNITS/ML 1ML VIAL/SYRINGE SC SCH ×3 (05:18→21:47)
[2021-03-25 06:00] VITALS: BP 130/65
[2021-03-25 06:40] LABS: HEMATOCRIT 48.6 % (42.0-52.0); HEMOGLOBIN 16.2 g/dl (13.5-17.5); MEAN CORPUSCULAR HEMOGLOBIN 29.2 pg (27.0-33.0); MEAN CORPUSCULAR HGB CONC 33.3 g/dl (32.0-36.5); MEAN CORPUSCULAR VOLUME 87.7 fl (80.0-96.0); PLATELET COUNT, AUTOMATED 179 10^3/uL (150-450); RED BLOOD COUNT 5.54 10^6/uL (4.30-6.10); WHITE BLOOD COUNT 10.9 10^3/uL (4.0-10.0)
[2021-03-25 07:14] LABS: CALCIUM LEVEL 9.8 MG/DL (8.8-10.2); CREATININE FOR GFR 2.12 MG/DL (0.70-1.30); GLOMERULAR FILTRATION RATE 32.9 (>42); MAGNESIUM LEVEL 2.3 MG/DL (1.8-2.4)
[2021-03-25] MEDS: ADVAIR HFA 115/21MCG INHALER INH SCH ×2 (07:45→19:54)
[2021-03-25] MEDS: HumaLOG INSULIN (NovoLOG) PER UNIT SC SCH ×4 (07:58→21:48)
[2021-03-25] MEDS: allopurinoL 100 MG TAB PO SCH (08:00)
[2021-03-25] MEDS: POTASSIUM CHLORIDE 10 MEQ SR TABLET PO SCH (08:00)
[2021-03-25] MEDS: methylPREDNISolone 125MG 2ML VIAL IV SCH (08:00)
[2021-03-25] MEDS: FUROSEMIDE 40MG/4ML VIAL (J1940) IV SCH (08:00)
[2021-03-25] MEDS: VITAMIN D 1,000 INTERNATIONAL UNITS TABLET PO SCH (08:02)
[2021-03-25] MEDS: lisinopriL 5 MG TAB PO SCH (08:02)
[2021-03-25] MEDS: MULTIVITAMINS/MINERALS THERAP 1 TAB PO SCH (08:02)
--- NOTE | 2021-03-25 11:40 | REP ---
INDICATION: r/o PE with worsening hypoxemia. COMPARISON: None. TECHNIQUE/RADIOTRACER AND DOSE: After the intravenous administration of 5.5 mCi of technetium 99 M MAA a perfusion lung study was performed. After the inhalation 1 mCi of technetium 99 M DTPA aerosol a ventilation lung study was performed. FINDINGS: There is clumping of the radiotracer within the trachea and esophagus. There are no ventilation perfusion mismatches consistent with a pulmonary embolism. A few patchy matching defects are seen bilaterally. IMPRESSION: Low probability for pulmonary embolism. <Electronically signed by Mian Mendes > 03/25/21 [id number]
[2021-03-25 14:00] VITALS: BP 137/69
--- NOTE | 2021-03-25 17:36 | IPNPDOC ---
Text Note Date of Service The patient was seen on 03/25/21. NOTE SUBJECTIVE: Patient is feeling better this morning and has been able to ambulate with only mildly increased dyspnea with exertion. He has continued to deny increased sputum production and chest pain. PHYSICAL EXAMINATION: VITAL SIGNS: see below GENERAL APPEARANCE: Awake, alert, oriented x 3. NAD HEENT: Atraumatic, normocephalic. Eyes are anicteric. Mucous membranes are pink and moist CARDIOVASCULAR: NSR, regular rhythm, no noted murmurs LUNGS: Bilateral crackles to mid lung mcneil, no appreciable wheezing ABDOMEN: Normoactive sounds, soft, nondistended. No rebound tenderness or guarding. EXTREMITIES: No lower extremity edema, no apparent rashes/petechiae. NEUROLOGICAL: Awake, speech is clear, AOx3 LABORATORY DATA: Reviewed laboratory studies IMAGING: VQ Scan: FINDINGS: There is clumping of the radiotracer within the trachea and esophagus. There are no ventilation perfusion mismatches consistent with a pulmonary embolism. A few patchy matching defects are seen bilaterally. IMPRESSION: Low probability for pulmonary embolism. 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 PLAN: # Acute on chronic hypoxemic respiratory failure likely related to fluid overload in the setting of elevated pBNP and continued ILD changes. Patient does have HFpEF evaluated with TTE in 2019, and TTE from current hospitalization is pending result. - Continue PRN Duonebs - Continue PRN Albuterol - Start Prednisone 40mg daily x4 days for taper for ILD - Continue supplemental O2 for sPO2 <89% - IS - TTE pending # HFpEF: Pending TTE for additional evaluation - Continue Lasix 40mg PO daily - Strict I/O - Daily weights - 2L Fluid restriction - Cardiac diet - Hold ACEI one more day # ARMIDA: Continue CPAP at home settings # Prostate cancer: No acute concerns at this time # CKD III: sCr near baseline, continue renalprotective measures # DM II - Continue Levemir - ISS Dispo: Likely d/c within 24 hours Code: Full Code Diet: consistent carbohydrate diet DVT Prophy: SC Heparin Consults: PT/OT VS,[place], I+O VS, Paulina, I+O Laboratory Tests 03/25/21 06:26 Vital Signs Date Time Temp Pulse Resp B/P (MAP) Pulse Ox O2 Delivery O2 Flow Rate FiO2 03/25/21 14:00 97.9 80 22 137/69 (91) 94 Nasal Cannula 4.0 I&O- Last 24 Hours up to 6 AM 03/25/21 06:00 Intake Total 300 ml Output Total 5 ml Balance -1725 ml BAILEE BRUNNER MD [facility] Mar 25, 2021 17:26
[2021-03-25] MEDS ORDERED: HumaLOG INSULIN (NovoLOG) PER UNIT SC ONE (18:00)
[2021-03-25] MEDS ORDERED: FUROSEMIDE 20MG/2ML VIAL (J1940) IV ONE (21:00)
[2021-03-25] MEDS: ASPIRIN 81MG ENTERIC TABLET PO SCH (21:47)
[2021-03-25] MEDS: SIMVASTATIN 20 MG TAB PO SCH (21:47)
[2021-03-25] MEDS: LEVEMIR (INSULIN DETEMIR) 1 UNITS/0.01ML SC SCH (21:48)
[2021-03-25 22:00] VITALS: BP 149/72
[2021-03-26] MEDS: IPRATROPIUM 0.5MG/ALBUTEROL 2.5MG INH SOL UD 3ML (DUONEB) NEB SCH ×4 (02:36→20:08)
[2021-03-26] MEDS: HEPARIN SOD (PORCINE) 5000UNITS/ML 1ML VIAL/SYRINGE SC SCH ×3 (05:30→21:13)
[2021-03-26 06:00] VITALS: BP 112/53
[2021-03-26 06:24] LABS: HEMATOCRIT 46.3 % (42.0-52.0); HEMOGLOBIN 15.2 g/dl (13.5-17.5); MEAN CORPUSCULAR HEMOGLOBIN 29.1 pg (27.0-33.0); MEAN CORPUSCULAR HGB CONC 32.8 g/dl (32.0-36.5); MEAN CORPUSCULAR VOLUME 88.7 fl (80.0-96.0); PLATELET COUNT, AUTOMATED 185 10^3/uL (150-450); RED BLOOD COUNT 5.22 10^6/uL (4.30-6.10); WHITE BLOOD COUNT 21.2 10^3/uL (4.0-10.0)
[2021-03-26 06:55] LABS: CALCIUM LEVEL 9.2 MG/DL (8.8-10.2); CREATININE FOR GFR 2.11 MG/DL (0.70-1.30); POTASSIUM SERUM 5.2 MEQ/L (3.5-5.1)
[2021-03-26] MEDS: ADVAIR HFA 115/21MCG INHALER INH SCH ×2 (07:35→20:06)
[2021-03-26] MEDS ORDERED: HumaLOG INSULIN (NovoLOG) PER UNIT SC ONE ×2 (08:00→17:00)
[2021-03-26] MEDS: FUROSEMIDE 40MG/4ML VIAL (J1940) IV SCH (08:29)
[2021-03-26] MEDS: allopurinoL 100 MG TAB PO SCH (08:29)
[2021-03-26] MEDS: MULTIVITAMINS/MINERALS THERAP 1 TAB PO SCH (08:30)
[2021-03-26] MEDS: VITAMIN D 1,000 INTERNATIONAL UNITS TABLET PO SCH (08:30)
[2021-03-26] MEDS: predniSONE 20 MG TAB PO SCH (08:30)
[2021-03-26] MEDS: LEVEMIR (INSULIN DETEMIR) 1 UNITS/0.01ML SC SCH ×2 (08:31→21:13)
[2021-03-26] MEDS: HumaLOG INSULIN (NovoLOG) PER UNIT SC SCH ×4 (08:31→21:12)
[2021-03-26] MEDS: POTASSIUM CHLORIDE 10 MEQ SR TABLET PO SCH (08:31)
--- NOTE | 2021-03-26 11:07 | ECHO ---
ECHOCARDIOGRAM DATE OF PROCEDURE: 03/25/2021 Age: Gender: Height: 168 cm Weight: 121 kg REFERRING PHYSICIAN: Dr. Julissa Hall. INDICATION: Dyspnea. MEASUREMENTS: IVS 1.1 cm LV 4.1 cm LVPW 1.1 cm LA 3.9 cm Aorta 3.5 cm IVC 2.0 cm Mitral E wave velocity 99 A wave 121 E prime septal 9.3 E prime lateral 9.2 FINDINGS: This study is of fair technical quality corresponding to patient's body habitus. Underlying sinus rhythm with wide QRS complex. Left ventricle is normal size and overall normal systolic function, I estimate EF around 60%. No distinct segmental wall motion abnormalities were seen. Right ventricle appears at least mildly enlarged. It was relatively poorly visualized, but the systolic function is probably preserved. There is at least mild biatrial enlargement. Aortic valve is tricuspid. It is calcified, and there is some restriction of cusp mobility. Based on 2D imaging, I cannot comment much with motion due to limited visualization. Mitral and tricuspid valves appear grossly normal. Pulmonic valve was not well seen. No pericardial effusion is noted. Inferior vena cava is upper limits of normal size and mildly dilated but does collapse (at least partially) with inspiration. Aortic root and aortic arch appear normal. Abdominal aorta was not well seen. Doppler interrogation of aortic valve reveals no insufficiency and probably mild to moderate stenosis with mean gradient 17 mmHg. Calculated aortic valve area was 1.3 cm2 which almost certainly indicates overestimation of its severity. There is competent mitral valve. Mild tricuspid insufficiency is seen. Calculated pulmonary artery pressure is around 80 mmHg corresponding to severe pulmonary hypertension. Mitral inflow pattern and tissue Doppler imaging of mitral annulus revealed grade 1 diastolic dysfunction. CONCLUSIONS: 1. Study is of fair technical quality, corresponding to patient's body habitus. Underlying sinus rhythm. 2. Normal LV size with normal LV systolic function and grade 1 diastolic dysfunction. 3. Mildly dilated but likely normally contractile right ventricle. 4. Mild to moderate aortic stenosis. 5. Likely elevated central venous pressure and severe pulmonary hypertension. MTDD
[2021-03-26 14:00] VITALS: BP 106/70
--- NOTE | 2021-03-26 15:58 | IPNPDOC ---
Text Note Date of Service The patient was seen on 03/26/21. NOTE SUBJECTIVE: Patient is feeling better this morning and has been able to ambulate with only mildly increased dyspnea with exertion. He has continued to deny increased sputum production and chest pain. PHYSICAL EXAMINATION: VITAL SIGNS: see below GENERAL APPEARANCE: Awake, alert, oriented x 3. NAD HEENT: Atraumatic, normocephalic. Eyes are anicteric. Mucous membranes are pink and moist CARDIOVASCULAR: NSR, regular rhythm, no noted murmurs, JVD is present LUNGS: Bilateral crackles to mid lung mcneil, no appreciable wheezing ABDOMEN: Normoactive sounds, soft, nondistended. No rebound tenderness or guarding. EXTREMITIES: 2+ bilateral lower extremity edema to mid vela, no apparent rashes/petechiae. NEUROLOGICAL: Awake, speech is clear, AOx3 LABORATORY DATA: Reviewed laboratory studies IMAGING: VQ Scan: FINDINGS: There is clumping of the radiotracer within the trachea and esophagus. There are no ventilation perfusion mismatches consistent with a pulmonary embol ism. A few patchy matching defects are seen bilaterally. IMPRESSION: Low probability for pulmonary embolism. 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 PLAN: # Acute on chronic hypoxemic respiratory failure likely related to fluid overload complicated by interstitial lung disease in the setting of elevated pBNP and continued ILD changes. Patient does have HFpEF evaluated with TTE in 2019, and TTE from current hospitalization is pending result. - Continue PRN Duonebs - Continue PRN Albuterol - Start Prednisone 40mg daily x4 days for taper for ILD (last day 03/30) - Continue supplemental O2 for sPO2 <89% and taper down for home 2L - IS at bedside - TTE pending - Diuresis as per below # HFpEF: Pending TTE for additional evaluation, however patient is clinically volume overloaded and continues to have good urine output. Balancing renal impairment with aggressive diuresis. Have administered 40mg IV Lasix this morning with 2.3L urine output this afternoon. Goal net negative of 2-3L, will redose Lasix this afternoon and recheck BMP. - Lasix 20mg IV x1 this afternoon - Recheck BMP this evening - Strict I/O - Daily weights - 2L Fluid restriction - Cardiac diet - Elevate legs above heart while in bed, use compression stockings # IDDM II Patient continues to have poorly controlled FSBG in the setting of prednisone dosing for treatment of COPD exacerbation. Will adjust long acting doses to reduce need for short acting insulin. - Levemir 30U QAM, 65U QHS - ISS # CKD III: sCr near baseline, balancing renal impairment with need to diurese. Patient has slightly contracted, however continues to be clinically fluid overloaded. Discussed this delicate situation with patient and his family. Will continue to closely monitor renal function and electrolytes. - daily BMP # ARMIDA: Continue CPAP at home settings # Prostate cancer: No acute concerns at this time Dispo: Med/Surg, continuing to diurese Code: Full Code Diet: consistent carbohydrate diet DVT Prophy: SC Heparin Consults: PT/OT VS,Dickbonsteve, I+O VS, Fishbone, I+O Laboratory Tests 03/26/21 05:58 Vital Signs Date Time Temp Pulse Resp B/P (MAP) Pulse Ox O2 Delivery O2 Flow Rate FiO2 03/26/21 14:00 97.5 67 20 106/70 (82) 97 Nasal Cannula 3.0 I&O- Last 24 Hours up to 6 AM 03/26/21 06:00 Intake Total 1250 ml Output Total 2225 ml Balance -975 ml BAILEE BRUNNER MD [facility] Mar 26, 2021 14:53
[2021-03-26] MEDS ORDERED: FUROSEMIDE 20MG/2ML VIAL (J1940) IV ONE (16:00)
[2021-03-26 18:19] LABS: CALCIUM LEVEL 10.1 MG/DL (8.8-10.2); CREATININE FOR GFR 2.03 MG/DL (0.70-1.30); GLOMERULAR FILTRATION RATE 34.5 (>42); POTASSIUM SERUM 5.5 MEQ/L (3.5-5.1)
[2021-03-26 19:53] VITALS: BP 116/70
[2021-03-26] MEDS: ASPIRIN 81MG ENTERIC TABLET PO SCH (21:13)
[2021-03-26] MEDS: SIMVASTATIN 20 MG TAB PO SCH (21:13)
[2021-03-27] MEDS: IPRATROPIUM 0.5MG/ALBUTEROL 2.5MG INH SOL UD 3ML (DUONEB) NEB SCH ×4 (02:06→20:00)
[2021-03-27] MEDS: HEPARIN SOD (PORCINE) 5000UNITS/ML 1ML VIAL/SYRINGE SC SCH ×3 (05:34→21:44)
[2021-03-27 05:52] LABS: HEMATOCRIT 46.1 % (42.0-52.0); HEMOGLOBIN 15.2 g/dl (13.5-17.5); PLATELET COUNT, AUTOMATED 186 10^3/uL (150-450); RED BLOOD COUNT 5.24 10^6/uL (4.30-6.10); WHITE BLOOD COUNT 18.5 10^3/uL (4.0-10.0)
[2021-03-27 06:00] VITALS: BP 111/56
[2021-03-27 06:19] LABS: CALCIUM LEVEL 9.4 MG/DL (8.8-10.2); CREATININE FOR GFR 1.76 MG/DL (0.70-1.30); GLOMERULAR FILTRATION RATE 40.7 (>42); POTASSIUM SERUM 4.3 MEQ/L (3.5-5.1)
[2021-03-27] MEDS: HumaLOG INSULIN (NovoLOG) PER UNIT SC SCH ×4 (08:06→20:40)
[2021-03-27] MEDS: FUROSEMIDE 40MG/4ML VIAL (J1940) IV SCH (08:06)
[2021-03-27] MEDS: VITAMIN D 1,000 INTERNATIONAL UNITS TABLET PO SCH (08:06)
[2021-03-27] MEDS: LEVEMIR (INSULIN DETEMIR) 1 UNITS/0.01ML SC SCH ×2 (08:06→20:40)
[2021-03-27] MEDS: MULTIVITAMINS/MINERALS THERAP 1 TAB PO SCH (08:06)
[2021-03-27] MEDS: allopurinoL 100 MG TAB PO SCH (08:07)
[2021-03-27] MEDS: POTASSIUM CHLORIDE 10 MEQ SR TABLET PO SCH (08:07)
[2021-03-27] MEDS: predniSONE 20 MG TAB PO SCH (08:07)
[2021-03-27] MEDS: ADVAIR HFA 115/21MCG INHALER INH SCH ×2 (09:08→20:11)
--- NOTE | 2021-03-27 12:43 | IPNPDOC ---
Text Note Date of Service The patient was seen on 03/27/21. NOTE SUBJECTIVE: Patient reports mild productive cough and continued dyspnea with exertion. Nursing reports that patient continues to require 4L NC with exertion. Patient feels that his energy is improved and lower extremity swelling is improving. PHYSICAL EXAMINATION: VITAL SIGNS: see below GENERAL APPEARANCE: Awake, alert, oriented x 3. NAD HEENT: Atraumatic, normocephalic. Eyes are anicteric. Mucous membranes are pink and moist CARDIOVASCULAR: NSR, regular rhythm, no noted murmurs, JVD is still present LUNGS: Bilateral crackles that are faint to mid lung mcneil, no appreciable wheezing ABDOMEN: Normoactive sounds, soft, nondistended. No rebound tenderness or guarding. EXTREMITIES: 2+ bilateral lower extremity edema to lower vela, improved from yesterday no apparent rashes/petechiae. 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 PLAN: # Acute on chronic hypoxemic respiratory failure likely related to fluid overload complicated by interstitial lung disease in the setting of elevated pBNP and continued ILD changes. Patient does have HFpEF evaluated with TTE in 2019, and TTE from current hospitalization is pending result. - Continue PRN Duonebs - Continue PRN Albuterol - Start Prednisone 40mg daily x4 days for taper for ILD (last day 03/30) - Continue supplemental O2 for sPO2 <89% and taper down for home 2L - IS at bedside - TTE pending - Diuresis as per below # HFpEF: Pending TTE for additional evaluation, however patient is clinically volume overloaded and continues to have good urine output. Balancing renal impairment with aggressive diuresis. Have administered 40mg IV Lasix this morning with 1.4L urine output this afternoon. Goal net negative of 2-3L, will redose Lasix this afternoon and recheck BMP. - Lasix 40mg IV x1 this afternoon - Recheck BMP this afternoon - Strict I/O - Daily weights - 2L Fluid restriction - Cardiac diet - Elevate legs above heart while in bed, use compression stockings # IDDM II Patient continues to have poorly controlled FSBG in the setting of prednisone dosing for treatment of COPD exacerbation. Will adjust long acting doses to reduce need for short acting insulin. - Levemir 40U QAM, 65U QHS - ISS # CKD III: sCr near baseline, balancing renal impairment with need to diurese. Patient has slightly contracted, however continues to be clinically fluid overloaded and norma al function has improved since discharge. Discussed this delicate situation with patient and his family yesterday. Will continue to closely monitor renal function and electrolytes. - daily BMP # ARMIDA: Continue CPAP at home settings # Prostate cancer: No acute concerns at this time Dispo: Med/Surg, continuing to diurese Code: Full Code Diet: consistent carbohydrate diet DVT Prophy: SC Heparin Consults: PT/OT VS,Paulina, I+O VS, Dickbonsteve, I+O Laboratory Tests 03/26/21 17:15 03/27/21 05:37 Vital Signs Date Time Temp Pulse Resp B/P (MAP) Pulse Ox O2 Delivery O2 Flow Rate FiO2 03/27/21 10:30 98 4.0 03/27/21 06:00 96.9 66 20 111/56 (74) NIPPV (BIPAP/CPAP) I&O- Last 24 Hours up to 6 AM 03/27/21 06:00 Intake Total 1130 ml Output Total 3975 ml Balance -2845 ml BAILEE BRUNNER MD [facility] Mar 27, 2021 12:43
[2021-03-27 14:00] VITALS: BP 124/80
[2021-03-27 14:57] LABS: CALCIUM LEVEL 9.5 MG/DL (8.8-10.2); CREATININE FOR GFR 1.96 MG/DL (0.70-1.30); POTASSIUM SERUM 5.2 MEQ/L (3.5-5.1)
[2021-03-27] MEDS ORDERED: FUROSEMIDE 40MG/4ML VIAL (J1940) IV ONE (16:00)
[2021-03-27] MEDS: ASPIRIN 81MG ENTERIC TABLET PO SCH (20:39)
[2021-03-27] MEDS: SIMVASTATIN 20 MG TAB PO SCH (20:39)
[2021-03-27 22:00] VITALS: BP 125/76
[2021-03-28] MEDS: IPRATROPIUM 0.5MG/ALBUTEROL 2.5MG INH SOL UD 3ML (DUONEB) NEB SCH ×5 (01:29→23:57)
[2021-03-28] MEDS: HEPARIN SOD (PORCINE) 5000UNITS/ML 1ML VIAL/SYRINGE SC SCH ×3 (05:14→21:43)
[2021-03-28 06:00] VITALS: BP 124/73
[2021-03-28 06:31] LABS: HEMATOCRIT 48.9 % (42.0-52.0); HEMOGLOBIN 16.1 g/dl (13.5-17.5); MEAN CORPUSCULAR HEMOGLOBIN 29.2 pg (27.0-33.0); MEAN CORPUSCULAR HGB CONC 32.9 g/dl (32.0-36.5); MEAN CORPUSCULAR VOLUME 88.7 fl (80.0-96.0); PLATELET COUNT, AUTOMATED 177 10^3/uL (150-450); RED BLOOD COUNT 5.51 10^6/uL (4.30-6.10); WHITE BLOOD COUNT 15.6 10^3/uL (4.0-10.0)
[2021-03-28 06:51] LABS: CALCIUM LEVEL 9.8 MG/DL (8.8-10.2); CREATININE FOR GFR 1.95 MG/DL (0.70-1.30); GLOMERULAR FILTRATION RATE 36.2 (>42); POTASSIUM SERUM 4.3 MEQ/L (3.5-5.1)
[2021-03-28] MEDS: ADVAIR HFA 115/21MCG INHALER INH SCH ×2 (07:31→19:37)
[2021-03-28] MEDS: predniSONE 20 MG TAB PO SCH (08:26)
[2021-03-28] MEDS: MULTIVITAMINS/MINERALS THERAP 1 TAB PO SCH (08:26)
[2021-03-28] MEDS: POTASSIUM CHLORIDE 10 MEQ SR TABLET PO SCH (08:26)
[2021-03-28] MEDS: VITAMIN D 1,000 INTERNATIONAL UNITS TABLET PO SCH (08:26)
[2021-03-28] MEDS: FUROSEMIDE 40MG/4ML VIAL (J1940) IV SCH (08:27)
[2021-03-28] MEDS: allopurinoL 100 MG TAB PO SCH (08:27)
[2021-03-28] MEDS: LEVEMIR (INSULIN DETEMIR) 1 UNITS/0.01ML SC SCH ×2 (08:28→21:44)
[2021-03-28] MEDS: HumaLOG INSULIN (NovoLOG) PER UNIT SC SCH ×4 (08:29→21:44)
[2021-03-28 14:00] VITALS: BP 121/73
--- NOTE | 2021-03-28 17:36 | IPNPDOC ---
Text Note Date of Service The patient was seen on 03/28/21. NOTE SUBJECTIVE: Patient continues to require oxygen slightly above baseline levels with any degree of exertion. He denies productive cough. PHYSICAL EXAMINATION: VITAL SIGNS: see below GENERAL APPEARANCE: Awake, alert, oriented x 3. NAD HEENT: Atraumatic, normocephalic. Eyes are anicteric. Mucous membranes are pink and moist CARDIOVASCULAR: NSR, regular rhythm, no noted murmurs, JVD is still present but improved LUNGS: Bilateral crackles that are faint to mid lung mcneil, no appreciable wheezing ABDOMEN: Normoactive sounds, soft, nondistended. No rebound tenderness or gua rding. EXTREMITIES: Lower extremity edema that is trace, no apparent rashes/petechiae. NEUROLOGICAL: Awake, speech is clear, AOx3 LABORATORY DATA: Reviewed laboratory studies IMAGING: Echo: FINDINGS: This study is of fair technical quality corresponding to patient's body habitus. Underlying sinus rhythm with wide QRS complex. Left ventricle is normal size and overall normal systolic function, I estimate EF around 60%. No distinct segmental wall motion abnormalities were seen. Right ventricle appears at least mildly enlarged. It was relatively poorly visualized, but the systolic function is probably preserved. There is at least mild biatrial enlargement. Aortic valve is tricuspid. It is calcified, and there is some restriction of cusp mobility. Based on 2D imaging, I cannot comment much with motion due to limited visualization. Mitral and tricuspid valves appear grossly normal. Pulmonic valve was not well seen. No pericardial effusion is noted. Inferior vena cava is upper limits of normal size and mildly dilated but does collapse at least partially with inspiration. Aortic root and aortic arch appear normal. Abdominal aorta was not well seen. Doppler interrogation of aortic valve reveals no insufficiency and probably mild to moderate stenosis with mean gradient 17 mmHg. Calculated aortic valve area was 1.3 cm2 which almost certainly indicates over estimation of its severity. There is competent mitral valve. Mild tricuspid insufficiency is seen. Calculated pulmonary artery pressure is around 80 mmHg corresponding to severe pulmonary hypertension. Mitral inflow pattern and tissue Doppler imaging of mitral annulus revealed grade 1 diastolic dysfunction. CONCLUSIONS: 1. Study is of fair technical quality, corresponding to patient's body habitus. Underlying sinus rhythm. 2. Normal LV size with normal LV systolic function and grade 1 diastolic dysfunction. 3. Mildly dilated but likely normally contractile right ventricle. 4. Mild to moderate aortic stenosis. 5. Likely elevated central venous pressure and severe pulmonary hypertension. 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 PLAN: # Acute on chronic hypoxemic respiratory failure likely related to fluid overload complicated by interstitial lung disease in the setting of elevated pBNP and continued ILD changes. Patient does have HFpEF evaluated with TTE in 2019 and this appears unchanged today however he does show severe pulmonary hypertension which is further discussed below. - Continue PRN Duonebs - Continue PRN Albuterol - Start Prednisone 40mg daily x4 days for taper for ILD (last day 03/30) - Continue supplemental O2 for sPO2 <89% and taper down for home 2L - IS at bedside - Diuresis as per below # HFpEF: Pending TTE for additional evaluation, however patient is clinically volume overloaded with crackles in bilateral lungs, and mild JVD though legs are markedly improved with compression stockings and he continues to have good urine output. Balancing renal impairment with aggressive diuresis. Have administered 40mg IV Lasix this morning with 1.4L urine output this afternoon. Goal net negative of 2-3L, will redose Lasix this afternoon. - Lasix 20mg IV x1 this afternoon - Strict I/O - Daily weights - 2L Fluid restriction - Cardiac diet - Elevate legs above heart while in bed, use compression stockings # IDDM II Patient continues to have poorly controlled FSBG in the setting of prednisone dosing for treatment of COPD exacerbation, with adjustment of short and long acting insulin these have improved. Will continue current regimen. - Levemir 40U QAM, 65U QHS - ISS # severe pulmonary HTN: An anticipated sequela of his ILD, will have him follow up with his manufacturing worker, however this is a poor prognosis overall. # CKD III: sCr near baseline, balancing renal impairment with need to diurese. Patient has slightly contracted, however continues to be clinically fluid overloaded and renal function has improved since discharge. Discussed this delicate situation with patient and his family yesterday. Will continue to closely monitor renal function and electrolytes. - daily BMP # ARMIDA: Continue CPAP at home settings # Prostate cancer: No acute concerns at this time Dispo: Med/Surg, continuing to diurese Code: Full Code Diet: consistent carbohydrate diet DVT Prophy: SC Heparin Consults: PT/OT VS,Fishbone, I+O VS, Fishbone, I+O Laboratory Tests 03/28/21 05:59 Vital Signs Date Time Temp Pulse Resp B/P (MAP) Pulse Ox O2 Delivery O2 Flow Rate FiO2 03/28/21 14:00 98.3 77 20 121/73 (89) 91 Nasal Cannula 3.0 I&O- Last 24 Hours up to 6 AM 03/28/21 06:00 Intake Total 1320 ml Output Total 3400 ml Balance -2080 ml BAILEE BRUNNER MD [facility] Mar 28, 2021 17:36
[2021-03-28] MEDS ORDERED: FUROSEMIDE 20MG/2ML VIAL (J1940) IV ONE (18:00)
[2021-03-28 18:02] LABS: CALCIUM LEVEL 9.9 MG/DL (8.8-10.2); CREATININE FOR GFR 1.99 MG/DL (0.70-1.30); GLOMERULAR FILTRATION RATE 35.3 (>42)
[2021-03-28] MEDS: SIMVASTATIN 20 MG TAB PO SCH (21:43)
[2021-03-28] MEDS: ASPIRIN 81MG ENTERIC TABLET PO SCH (21:43)
[2021-03-28 22:00] VITALS: BP 136/93
[2021-03-29 06:00] VITALS: BP 137/73
[2021-03-29] MEDS: HEPARIN SOD (PORCINE) 5000UNITS/ML 1ML VIAL/SYRINGE SC SCH ×3 (06:29→22:02)
[2021-03-29 06:47] LABS: HEMOGLOBIN 16.6 g/dl (13.5-17.5); MEAN CORPUSCULAR HEMOGLOBIN 29.3 pg (27.0-33.0); MEAN CORPUSCULAR HGB CONC 33.2 g/dl (32.0-36.5); MEAN CORPUSCULAR VOLUME 88.3 fl (80.0-96.0); PLATELET COUNT, AUTOMATED 198 10^3/uL (150-450); RED BLOOD COUNT 5.66 10^6/uL (4.30-6.10); WHITE BLOOD COUNT 16.6 10^3/uL (4.0-10.0)
[2021-03-29 07:16] LABS: CALCIUM LEVEL 9.5 MG/DL (8.8-10.2); CREATININE FOR GFR 1.84 MG/DL (0.70-1.30); GLOMERULAR FILTRATION RATE 38.7 (>42); POTASSIUM SERUM 4.1 MEQ/L (3.5-5.1)
[2021-03-29] MEDS: ADVAIR HFA 115/21MCG INHALER INH SCH ×2 (07:56→19:36)
[2021-03-29] MEDS: IPRATROPIUM 0.5MG/ALBUTEROL 2.5MG INH SOL UD 3ML (DUONEB) NEB SCH ×3 (07:56→19:36)
[2021-03-29] MEDS: HumaLOG INSULIN (NovoLOG) PER UNIT SC SCH ×4 (08:11→22:01)
[2021-03-29] MEDS: FUROSEMIDE 40MG/4ML VIAL (J1940) IV SCH (08:11)
[2021-03-29] MEDS: allopurinoL 100 MG TAB PO SCH (08:12)
[2021-03-29] MEDS: VITAMIN D 1,000 INTERNATIONAL UNITS TABLET PO SCH (08:12)
[2021-03-29] MEDS: POTASSIUM CHLORIDE 10 MEQ SR TABLET PO SCH (08:12)
[2021-03-29] MEDS: predniSONE 20 MG TAB PO SCH (08:12)
[2021-03-29] MEDS: LEVEMIR (INSULIN DETEMIR) 1 UNITS/0.01ML SC SCH (08:12)
[2021-03-29] MEDS: MULTIVITAMINS/MINERALS THERAP 1 TAB PO SCH (08:12)
[2021-03-29 08:14] VITALS: BP 133/85
[2021-03-29] MEDS: lisinopriL 5 MG TAB PO SCH (08:14)
[2021-03-29] MEDS ORDERED: PRED10TA2 PO (10:17)
[2021-03-29] MEDS ORDERED: PANT40TA29 PO (10:18)
--- NOTE | 2021-03-29 12:13 | IPNPDOC ---
Text Note Date of Service The patient was seen on 03/29/21. NOTE SUBJECTIVE: -No acute complaints -Reports that he feels better for sure than when I admitted him close to 1 week ago PHYSICAL EXAMINATION: VITAL SIGNS: see below GENERAL APPEARANCE: Awake, alert, oriented x 3. NAD HEENT: Atraumatic, normocephalic. Eyes are anicteric. Mucous membranes are pink and moist CARDIOVASCULAR: NSR, regular rhythm, no noted murmurs, JVD is still present but improved LUNGS: Dry velcro like crackles that are faint to mid lung mcneil, no appreciable wheezing ABDOMEN: Normoactive sounds, soft, nondistended. No rebound tenderness or guarding. EXTREMITIES: Trace bilateral LE edema, no apparent rashes/petechiae. NEUROLOGICAL: Awake, speech is clear, AOx3 LABORATORY DATA: Reviewed IMAGING: Echo: FINDINGS: This study is of fair technical quality corresponding to patient's body habitus. Underlying sinus rhythm with wide QRS complex. Left ventricle is normal size and overall normal systolic function, I estimate EF around 60%. No distinct segmental wall motion abnormalities were seen. Right ventricle appears at least mildly enlarged. It was relatively poorly visualized, but the systolic function is probably preserved. There is at least mild biatrial enlargement. Aortic valve is tricuspid. It is calcified, and there is some restriction of cusp mobility. Based on 2D imaging, I cannot comment much with motion due to limited visualization. Mitral and tricuspid valves appear grossly normal. Pulmonic valve was not well seen. No pericardial effusion is noted. Inferior vena cava is upper limits of normal size and mildly dilated but does collapse at least partially with inspiration. Aortic root and aortic arch appear normal. Abdominal aorta was not well seen. Doppler interrogation of aortic valve reveals no insufficiency and probably mild to moderate stenosis with mean gradient 17 mmHg. Calculated aortic valve area was 1.3 cm2 which almost certainly indicates over estimation of its severity. There is competent mitral valve. Mild tricuspid insufficiency is seen. Calculated pulmonary artery pressure is around 80 mmHg corresponding to severe pulmonary hypertension. Mitral inflow pattern and tissue Doppler imaging of mitral annulus revealed grade 1 diastolic dysfunction. CONCLUSIONS: 1. Study is of fair technical quality, corresponding to patient's body habitus. Underlying sinus rhythm. 2. Normal LV size with normal LV systolic function and grade 1 diastolic dysfunction. 3. Mildly dilated but likely normally contractile right ventricle. 4. Mild to moderate aortic stenosis. 5. Likely elevated central venous pressure and severe pulmonary hypertension. ASSESSMENT: 70 y/o M with ILD, on 2L NC at baseline , ARMIDA on CPAP nightly, CKD stage II, DM type II, hypertension, prostate cancer s/p robotic lap radial prostatectomy with bilateral pelvic lymph node dissection in 05/2020, prior smoker for 25y who was sent in per recommendation of his neurosurgery physician for worsening GOLDMAN with saturation of only 81% while on 3L NC, who is now being admitted for investigation and management of acute on chronic hypoxemic respiratory failure. PLAN: # Acute on chronic hypoxemic respiratory failure likely related to fluid overload complicated by interstitial lung disease in the setting of elevated pBNP and continued ILD changes. Patient does have HFpEF evaluated with TTE in 2019 and this appears unchanged today however he does show severe pulmonary hypertension which is further discussed below. - Continue PRN Duonebs - Continue PRN Albuterol - Prednisone 40mg daily with slow taper for ILD, but will give long taper given ILD - Continue supplemental O2 for sPO2 <89% and taper down for home 2L - IS at bedside - Diuresis as per below # HFpEF: -TTE as above -Lasix 40 IV daily - Strict I/O - Daily weights - 2L Fluid restriction - Cardiac diet - Elevate legs above heart while in bed, use compression stockings # IDDM II Patient continues to have poorly controlled FSBG in the setting of prednisone dosing for treatment of COPD exacerbation, with adjustment of short and long acting insulin these have improved. Will continue current regimen. - Levemir 40U QAM, 65U QHS - ISS AC/HS - FSBG AC/HS - Hypoglycemia protocol # severe pulmonary HTN: An anticipated sequela of his ILD, will have him follow up with his neurosurgery physician, however this is a poor prognosis overall. # CKD III: sCr near baseline, balancing renal impairment with need to diurese. Patient has slightly contracted, however continues to be clinically fluid overloaded and renal function has improved since discharge. Discussed this delicate situation with patient and his family yesterday. Will continue to closely monitor renal function and electrolytes. - daily BMP # ARMIDA: Continue CPAP at home settings # Prostate cancer: No acute concerns at this time Dispo: Med/Surg, continuing to diurese, planning to discharge home tomorrow. Code: Full Code Diet: consistent carbohydrate diet DVT Prophy: SC Heparin Consults: PT/OT VS,Paulina, I+O VS, Fishbone, I+O Laboratory Tests 03/28/21 14:59 03/29/21 05:39 Vital Signs Date Time Temp Pulse Resp B/P (MAP) Pulse Ox O2 Delivery O2 Flow Rate FiO2 03/29/21 08:20 3.0 03/29/21 08:14 133/85 03/29/21 06:00 97.5 71 18 96 NIPPV (BIPAP/CPAP) I&O- Last 24 Hours up to 6 AM 03/29/21 06:00 Intake Total 1800 ml Output Total 4000 ml Balance -2200 ml MARIAA SHORT MD Mar 29, 2021 12:13
[2021-03-29 14:00] VITALS: BP 130/80
[2021-03-29] MEDS ORDERED: LEVEMIR (INSULIN DETEMIR) 1 UNITS/0.01ML SC SCH (21:00)
[2021-03-29 22:00] VITALS: BP 148/77
[2021-03-29] MEDS: ASPIRIN 81MG ENTERIC TABLET PO SCH (22:00)
[2021-03-29] MEDS: SIMVASTATIN 20 MG TAB PO SCH (22:00)
[2021-03-30] MEDS: IPRATROPIUM 0.5MG/ALBUTEROL 2.5MG INH SOL UD 3ML (DUONEB) NEB SCH ×2 (02:34→08:00)
[2021-03-30] MEDS: HEPARIN SOD (PORCINE) 5000UNITS/ML 1ML VIAL/SYRINGE SC SCH (05:57)
[2021-03-30 06:00] VITALS: BP 132/74
[2021-03-30] MEDS: ADVAIR HFA 115/21MCG INHALER INH SCH (07:33)
[2021-03-30] MEDS ORDERED: LANTINJ4 SC (08:02)
[2021-03-30] MEDS: HumaLOG INSULIN (NovoLOG) PER UNIT SC SCH ×2 (08:11→12:26)
[2021-03-30] MEDS: VITAMIN D 1,000 INTERNATIONAL UNITS TABLET PO SCH (08:11)
[2021-03-30] MEDS: FUROSEMIDE 40MG/4ML VIAL (J1940) IV SCH (08:12)
[2021-03-30] MEDS: allopurinoL 100 MG TAB PO SCH (08:12)
[2021-03-30] MEDS: MULTIVITAMINS/MINERALS THERAP 1 TAB PO SCH (08:12)
[2021-03-30] MEDS: POTASSIUM CHLORIDE 10 MEQ SR TABLET PO SCH (08:12)
[2021-03-30] MEDS ORDERED: LEVEMIR (INSULIN DETEMIR) 1 UNITS/0.01ML SC SCH ×2 (09:00)
--- NOTE | 2021-03-30 11:56 | DS.PDOC ---
Discharge Summary General Date of Admission Mar 24, 2021 at 17:32 Date of Discharge 03/30/2021 Attending Physician: MARIAA SHORT MD Discharge Summary PROCEDURES PERFORMED DURING STAY: None ADMITTING DIAGNOSES: Acute on chronic hypoxemic respiratory failure DISCHARGE DIAGNOSES: ILD COPD exacerbation Acute on chronic hypoxemic respiratory failure HFpEF exacerbation Aortic stenosis ARMIDA uses CPAP night CKD Stage III DM type II Prostate cancer (Dx 04/2020) gerd HTN HLD COMPLICATIONS/CHIEF COMPLAINT: Acute And Chronic Respiratory Failure W/Hypoxia. 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 He denied any recent fever, chills, worsening sputum, hemoptysis, chest pain, leg swelling, orthopnea. HOSPITAL COURSE: In the ED he was hemodynamically stable and saturating well on 2L NC while at rest. Evaluation revealed a WBC of 11.1, Hgb 16.2, platelets 188, Na 137, K 4.9, Cr 1.8 at recent baseline, proBNP of 1172 (was previously 390 in 05/30), negative respiratory panel while CXR showed interstitial fibrotic changes without opacities of effusions with stable cardiomegaly, and bilateral lower extremity venous Doppler US revealed no DVTs. He was admitted for workup of the acute on chronic hypoxemic respiratory failure to r/o a PE with a V/Q scan and investigate potential cardiac etiology. V/Q scan showed a low probability for a PE while TTE showed a preserved ejection fraction, high pulmonary pressures and volume overload. He underwent diuresis with IV lasix and was started on IV steroids for a COPD exacerbation and potential progressive ILD. His worsening exertional hypoxemia mild improved but did persist. He worked with PT/OT and his exercise tolerance improved significantly. He is now being discharged home with a long steroid taper, back on home dosing diuretic and close pulmonology follow up. Of note, his course was c/b steroid driven hyperglycemia and his insulin was increased. He is now being discharged on 60 qAM and 70 qPM long acting insulin and SSI, with a close PCP follow up. DISCHARGE MEDICATIONS: Please see below. ALLERGIES: Please see below. PHYSICAL EXAMINATION ON DISCHARGE: VITAL SIGNS: Please see below. GENERAL APPEARANCE: Awake, alert, oriented x 3. NAD HEENT: Atraumatic, normocephalic. Eyes are anicteric. Mucous membranes are pink and moist CARDIOVASCULAR: NSR, regular rhythm, no noted murmurs, JVD is still present but improved LUNGS: Dry velcro like crackles that are faint to mid lung mcneil, no appreciable wheezing ABDOMEN: Normoactive sounds, soft, nondistended. No rebound tenderness or guarding. EXTREMITIES: Trace bilateral LE edema, no apparent rashes/petechiae. NEUROLOGICAL: Awake, speech is clear, AOx3 LABORATORY DATA: Please see below. IMAGING: Bilateral LE venous doppler US: There is no abnormal echogenic material seen within any of the visualized deep venous structures that would suggest acute thrombosis. Coaptation is unremarkable throughout. Doppler interrogation shows an expected response to respiratory variability and augmentation in the thigh. Compression techniques in the calf showed no abnormality. The color flow images show what appears to be a normal vascular pattern throughout the thigh. IMPRESSION: There is no ultrasonographic evidence of deep venous thrombosis involving any of the visualized deep venous structures of the bilateral lower extremity as described above. V/Q scan: There is clumping of the radiotracer within the trachea and esophagus. There are no ventilation perfusion mismatches consistent with a pulmonary embolism. A few patchy matching defects are seen bilaterally. IMPRESSION: Low probability for pulmonary embolism. TTE: FINDINGS: This study is of fair technical quality corresponding to patient's body habitus. Underlying sinus rhythm with wide QRS complex. Left ventricle is normal size and overall normal systolic function, I estimate EF around 60%. No distinct segmental wall motion abnormalities were seen. Right ventricle appears at least mildly enlarged. It was relatively poorly visualized, but the systolic function is probably preserved. There is at least mild biatrial enlargement. Aortic valve is tricuspid. It is calcified, and there is some restriction of cusp mobility. Based on 2D imaging, I cannot comment much with motion due to limited visualization. Mitral and tricuspid valves appear grossly normal. Pulmonic valve was not well seen. No pericardial effusion is noted. Inferior vena cava is upper limits of normal size and mildly dilated but does collapse at least partially with inspiration. Aortic root and aortic arch appear normal. Abdominal aorta was not well seen. Doppler interrogation of aortic valve reveals no insufficiency and probably mild to moderate stenosis with mean gradient 17 mmHg. Calculated aortic valve area was 1.3 cm2 which almost certainly indicates over estimation of its severity. There is competent mitral valve. Mild tricuspid insufficiency is seen. Calculated pulmonary artery pressure is around 80 mmHg corresponding to severe pulmonary hypertension. Mitral inflow pattern and tissue Doppler imaging of mitral annulus revealed grade 1 diastolic dysfunction. CONCLUSIONS: 1. Study is of fair technical quality, corresponding to patient's body habitus. Underlying sinus rhythm. 2. Normal LV size with normal LV systolic function and grade 1 diastolic dysfunction. 3. Mildly dilated but likely normally contractile right ventricle. 4. Mild to moderate aortic stenosis. 5. Likely elevated central venous pressure and severe pulmonary hypertension. CXR: The technique utilized in obtaining the radiograph has magnified the cardiac silhouette and accentuated the interstitial markings. Interstitial fibrotic changes are again seen throughout the lung mcneil. No definite acute patchy parenchymal opacity or pleural effusion has developed. There is cardiomegaly accentuated by technique. There is no change in the osseous structures. IMPRESSION: Stable appearing chronic changes. PROGNOSIS: Good ACTIVITY: As tolerated. DIET: consistent carb DISCHARGE PLAN: Home with close pulm and PCP follow up with a prednisone taper DISPOSITION: home DISCHARGE INSTRUCTIONS: Home with close pulm and PCP follow up with a prednisone taper ITEMS TO FOLLOWUP ON ON OUTPATIENT: COPD ILD DM, glycemic control DISCHARGE CONDITION: Stable TIME SPENT ON DISCHARGE: 63 minutes. Vital Signs/I&Os Vital Signs Date Time Temp Pulse Resp B/P (MAP) Pulse Ox O2 Delivery O2 Flow Rate FiO2 03/30/21 06:00 97.2 65 18 132/74 (93) 96 Nasal Cannula 3.0 I&O- Last 24 Hours up to 6 AM 03/30/21 06:00 Intake Total 1170 ml Output Total 3125 ml Balance -1955 ml Laboratory Data Labs 24H Laboratory Tests 2 03/29/21 11:34: Bedside Glucose (Misc Panel) 356H 03/29/21 17:06: Bedside Glucose (Misc Panel) 505*H 03/29/21 17:09: Bedside Glucose (Misc Panel) 499H 03/29/21 17:18: Bedside Glucose Confirm (Misc) 484*H 03/29/21 19:56: Bedside Glucose (Misc Panel) 452H 03/30/21 06:08: Bedside Glucose (Misc Panel) 150H FSBS Laboratory Tests Test 03/29/21 11:34 03/29/21 17:06 03/29/21 17:09 03/29/21 19:56 Range/Units Bedside Glucose (Misc Panel) 356 505 499 452 83-110 MG/DL Test 03/30/21 06:08 Range/Units Bedside Glucose (Misc Panel) 150 83-110 MG/DL Microbiology Microbiology 03/24/21 Respiratory Virus Panel (PCR) (DESTINY) - Final, Complete 03/24/21 Blood Culture - Final, Complete NO GROWTH AFTER 5 DAYS 03/24/21 Blood Culture - Final, Complete NO GROWTH AFTER 5 DAYS Discharge Medications Scheduled Allopurinol (Allopurinol) 100 Mg Tablet, 200 MG PO DAILY, (Reported) Aspirin (Aspirin EC) 81 Mg Tablet.dr, 81 MG PO QHS, (Reported) Cholecalciferol (Vitamin D3) (Vitamin D3) 125 Mcg Tablet, 125 MCG PO DAILY, (Reported) Exenatide Microspheres (Bydureon Bcise) 2 Mg/0.85 Ml Auto.injct, 2 MG SC 1XWK, (Reported) WEDNESDAY MORNINGS Fluticasone Propion/Salmeterol (Advair Hfa 115-21 Mcg Inhaler) 12 Gm Hfa.aer.ad, 2 PUFF INH BID, (Reported) Furosemide (Furosemide) 40 Mg Tablet, 40 MG PO DAILY, (Reported) Insulin Glargine,Hum.rec.anlog (Lantus Solostar) 100 Unit/Ml Inj, 60 UNITS SC BID Insulin Human Lispro (Novolog) 100 Unit/1 Ml Vial, 1 DOSE SC AC, (Reported) PER SLIDING SCALE Lisinopril (Lisinopril) 5 Mg Tablet, 2.5 MG PO Q2D, (Reported) Multivitamin (Multivitamin) 1 Each Tablet, 2 TAB PO DAILY, (Reported) Pantoprazole Sodium (Pantoprazole Sodium) 40 Mg Tablet.dr, 1 TAB PO DAILY Potassium Chloride (Potassium Chloride) 20 Meq Tablet.er, 10 MEQ PO DAILY, (Reported) Prednisone (Prednisone) 10 Mg Tablet, 1 TAB PO ASDIRECTED 5d of 40mg daily, then 5d of 30mg daily, then 5d of 20mg daily, then 5d of 10mg. Simvastatin (Simvastatin) 20 Mg Tab, 20 MG PO QHS, (Reported) Scheduled PRN Albuterol Sulfate (Proair Hfa) 8.5 Gm Hfa.aer.ad, 2 PUFF INH Q4H PRN for SOB/WHEEZING, (Reported) Allergies Coded Allergies: No Known Allergies (Unverified , 02/28/20) MARIAA SHORT MD Mar 30, 2021 07:59
[2021-03-30 14:00] VITALS: BP 121/69
== END 2021-03-30 14:29 | disposition home or self-care (01) | DRG 197 ==
LOC: M ED 14:48 → M ED INP 17:32 → ENRESERVTM 19:02 → ENRESERVDT 19:02 → M MSPAV 20:35
PROVIDERS: ADMIT Internal Medicine; ATTEND Internal Medicine
DX: J84.9 Interstitial pulmonary disease, unspecified (principal); I50.32 Chronic diastolic (congestive) heart failure; J96.11 Chronic respiratory failure with hypoxia; J44.1 Chronic obstructive pulmonary disease with (acute) exacerbation; F17.210 Nicotine dependence, cigarettes, uncomplicated; I12.9 Hypertensive chronic kidney disease with stage 1 through stage 4 chronic kidney disease, or unspecified chronic kidney disease; Z99.81 Dependence on supplemental oxygen; G47.33 Obstructive sleep apnea (adult) (pediatric); N18.30 Chronic kidney disease, stage 3 unspecified; E11.22 Type 2 diabetes mellitus with diabetic chronic kidney disease; Z85.46 Personal history of malignant neoplasm of prostate; Z20.822 Contact with and (suspected) exposure to COVID-19; Z79.82 Long term (current) use of aspirin; Z79.4 Long term (current) use of insulin; Z79.899 Other long term (current) drug therapy; K21.9 Gastro-esophageal reflux disease without esophagitis; E78.5 Hyperlipidemia, unspecified

== ENCOUNTER 2021-04-21 16:08 | Inpatient (IN) | payer OTHER ==
[~2021-04-21] VITALS: Ht 167.6 cm; Wt 119.8 kg
[~2021-04-21 16:08] MED LIST changes: +ADVA115A INH; +ASPI81TA26 PO; +BYDU2INJ7 SC; +FURO40TA2 PO; +NATU1TAB5 PO; +PANT40TA29 PO; +PRED10TA2 PO
--- NOTE | 2021-04-21 16:54 | REP ---
INDICATION: SOB leg edema. COMPARISON: Comparison chest x-ray March 24, 2021. TECHNIQUE: Two views.. FINDINGS: EKG monitoring electrodes are seen. There is diffuse predominantly pers referral pattern of interstitial fibrosis moderate to advanced and unchanged from the March 24, 2021 study. Heart is borderline. There is no visible pleural effusion. There is evidence of a lap band in place in the left upper quadrant of the abdomen. No acute bony abnormality is seen. IMPRESSION: Chronic interstitial fibrosis pattern moderate to advanced. No superimposed infiltrate is appreciated. Borderline heart size unchanged.. <Electronically signed by Wicho Cisneros > 04/21/21 [id number]
[2021-04-21 17:54] LABS: BASO % 0.1 % (0.0-1.0); EOS # 0.3 10^3/uL (0.0-0.5); EOS % 3.3 % (0.0-3.0); HEMOGLOBIN 14.3 g/dl (13.5-17.5); LYMPH # 1.1 10^3/uL (1.5-5.0); LYMPH % 12.5 % (24.0-44.0); MEAN CORPUSCULAR HEMOGLOBIN 29.7 pg (27.0-33.0); MEAN CORPUSCULAR HGB CONC 32.5 g/dl (32.0-36.5); MEAN CORPUSCULAR VOLUME 91.3 fl (80.0-96.0); MONO # 0.8 10^3/uL (0.0-0.8); MONO % 9.3 % (2.0-8.0); NEUTROPHILS # 6.5 10^3/uL (1.5-8.5); NEUTROPHILS % 73.6 % (36.0-66.0); PLATELET COUNT, AUTOMATED 147 10^3/uL (150-450); RED BLOOD COUNT 4.82 10^6/uL (4.30-6.10); WHITE BLOOD COUNT 8.9 10^3/uL (4.0-10.0)
[2021-04-21 18:24] LABS: ALBUMIN 3.3 GM/DL (3.2-5.2); ALT/SGPT 39 U/L (12-78); BILIRUBIN,DIRECT 0.2 MG/DL (0.0-0.2); BILIRUBIN,TOTAL 0.9 MG/DL (0.2-1.0); BLOOD UREA NITROGEN 36 MG/DL (7-18); CALCIUM LEVEL 9.2 MG/DL (8.8-10.2); CARBON DIOXIDE LEVEL 28 MEQ/L (21-32); CHLORIDE LEVEL 107 MEQ/L (98-107); CK-MB VALUE MASS < 1.0 NG/ML (<3.6); CPK CREATINE PHOSPHOKINASE 124 U/L (39-308); CREATININE FOR GFR 1.57 MG/DL (0.70-1.30); FREE T4 1.02 NG/DL (0.76-1.46); GLOMERULAR FILTRATION RATE 46.3 (>42); GLUCOSE, FASTING 79 MG/DL (70-100); MB/CK RELATIVE INDEX 0.81 (< OR =4); NT-PRO BNP 1661 PG/ML (<125); POTASSIUM SERUM 4.7 MEQ/L (3.5-5.1); SODIUM LEVEL 142 MEQ/L (136-145); THYROID STIMULATING HORMONE 0.775 uIU/ML (0.358-3.740); TOTAL PROTEIN 6.3 GM/DL (6.4-8.2); TROPONIN I 0.05 NG/ML (< 0.10)
[2021-04-21] MEDS ORDERED: FUROSEMIDE 40MG/4ML VIAL (J1940) IV ONE (18:25)
[2021-04-21] MEDS ORDERED: MOM 30ML SUSPENSION UDC PO PRN (18:55)
[2021-04-21] MEDS ORDERED: MAALOX 30 ML SUSP *UDC PO PRN (18:55)
[2021-04-21] MEDS ORDERED: GLUCAGON INJ 1MG VIAL SC PRN (18:55)
[2021-04-21] MEDS ORDERED: DEXTROSE 50% 50 ML SYRINGE IV PRN (18:55)
[2021-04-21] MEDS ORDERED: GLUCOSE 4GM CHEW TABLET PO PRN (18:55)
[2021-04-21] MEDS ORDERED: FUROSEMIDE 20MG/2ML VIAL (J1940) IV ONE (18:55)
--- NOTE | 2021-04-21 18:55 | REP ---
INDICATION: edema r/o DVT. COMPARISON: None. TECHNIQUE: Multiple ultrasonographic images of the deep venous structures of the bilateral lower extremity were obtained from the inguinal ligament to the ankle. Venous compression techniques, color doppler imaging, and augmentation techniques were also obtained where appropriate. As per the ACR guidelines the anterior tibial vein can not be effectively evaluated. Only compression techniques in the calf on the peroneal and posterior tibial veins was attempted/performed. FINDINGS: There is no abnormal echogenic material seen within any of the visualized deep venous structures that would suggest acute thrombosis. Coaptation is unremarkable throughout. Doppler interrogation shows an expected response to respiratory variability and augmentation in the thigh. Compression techniques in the calf were unobtainable. The color flow images show what appears to be a normal vascular pattern throughout the thigh. IMPRESSION: There is no ultrasonographic evidence of deep venous thrombosis involving any of the visualized deep venous structures of the bilateral lower extremity as described above. Due to technical parameters calf vein DVT can not be ruled out. <Electronically signed by Mian Mendes > 04/21/21 [id number]
[2021-04-21] MEDS: HumaLOG INSULIN (NovoLOG) PER UNIT SC SCH ×2 (19:00→22:24)
[2021-04-21] MEDS ORDERED: LANTINJ4 SC (19:06)
[2021-04-21] MEDS ORDERED: PANT-23 PO (19:06)
--- NOTE | 2021-04-21 19:19 | HPEPDOC ---
[facility] Medical History & Physical Date of Admission Apr 21, 2021 Date of Service: Apr 21, 2021 Attending Physician: TAY GARCIA MD History and Physical CHIEF COMPLAINT: [71 y/o male c/o sob for several weeks] HISTORY OF PRESENT ILLNESS: [This is a 71 y/o male with a pmh of HFpEF, htn, armida, prostate ca s/p prostatectomy, interstitial lung disease chronically on 4L of O2, and iddm2 who presents to the ED on 04/21 after being referred here by his button buttonhole marker for continued sob and worsening le edema. Patient states that he has noticed his sob gradually worsening in the past few weeks and is exacerbated by activity. Patient states that his breathing feels better at rest. Patient admits to occasional productive cough with clear or brown colored sputum. Patient states that he otherwise feels fine besides his breathing and is denying fevers, chills, chest pain, abd pain, n/v/d/c, calf pain, hemoptysis, syncope, dysuria, recent falls.] PAST MEDICAL HISTORY: 1. [See HPI PAST SURGICAL HISTORY: 1. [Colonoscopy with polypectomy]. 2. [Cholecystectomy]. 3. [Prostatectomy 4. Gastric lap band]. SOCIAL HISTORY: Tobacco use:[Denies] ETOH: [Rarely] Illicit drug use: [Denies] FAMILY HISTORY: Mother - dm, cad, htn Father - carcinomas ALLERGIES: Please see below. REVIEW OF SYSTEMS: CONSTITUTIONAL: [Denies fever, chills]. HEENT: [Denies uri sx]. CARDIOVASCULAR: [Denies chest pain, palpitations]. RESPIRATORY: [See HPI]. GASTROINTESTINAL: [See HPI]. GENITOURINARY: [See HPI]. SKIN: [Denies rash]. MUSCULOSKELETAL: [Denies acute joint/back pain]. NEUROLOGICAL: [Denies syncope, paresthesias]. ENDOCRINE: [Hx of DM]. HEMATOLOGIC/LYMPHATIC: [Denies easy bruising]. HOME MEDICATIONS: Please see below. PHYSICAL EXAMINATION: VITAL SIGNS: Please see below. GENERAL APPEARANCE: [This is an obese 71 y/o male. He is laying in bed and appears to have increase work of breathing]. HEENT: [No mass or lesion. EOMI. No scleral icterus. Nares patent. oral mucosa moist.]. CARDIOVASCULAR: [Regular rate, rhythm. No murmrus, rubs, gallops]. LUNGS: [Decreased breath sounds throughout. Crackles at b/l bases]. ABDOMEN: [Soft, nontender]. MUSCULOSKELETAL: [No joint deformity]. EXTREMITIES: [Grossly pitting edema to b/l lower extremities to the thighs. No overlying skin changes. Calves nontender. Pulses weak.]. NEUROLOGICAL: [Speech clear. A+Ox3. No focal deficits.]. PSYCHIATRIC: [ Mood and affect appear appropriate]. LABORATORY DATA: See below. IMAGING: [CXR: FINDINGS: EKG monitoring electrodes are seen. There is diffuse predominantly pers referral pattern of interstitial fibrosis moderate to advanced and unchanged from the March 24, 2021 study. Heart is borderline. There is no visible pleural effusion. There is evidence of a lap band in place in the left upper quadrant of the abdomen. No acute bony abnormality is seen. IMPRESSION: Chronic interstitial fibrosis pattern moderate to advanced. No superimposed infiltrate is appreciated. Borderline heart size unchanged.. Vascular US: FINDINGS: There is no abnormal echogenic material seen within any of the visualized deep venous structures that would suggest acute thrombosis. Coaptation is unremarkable throughout. Doppler interrogation shows an expected response to respiratory variability and augmentation in the thigh. Compression techniques in the calf were unobtainable. The color flow images show what appears to be a normal vascular pattern throughout the thigh. IMPRESSION: There is no ultrasonographic evidence of deep venous thrombosis involving any of the visualized deep venous structures of the bilateral lower extremity as described above. Due to technical parameters calf vein DVT can not be ruled out.] MICROBIOLOGY: Please see below. ASSESSMENT: [This is a 71 y/o male with a pmh of HFpEF, htn, armida, prostate ca s/p prostatectomy, interstitial lung disease chronically on 4L of O2, and iddm2 who presents to the ED on 04/21 after being referred here by his button buttonhole marker for continued sob and worsening le edema. Patient is clinically volume overloaded with elevated bnp of over 1600.]. . PLAN: 1. [Acute on chronic HFpEF - As stated above, patient is clinically volume overloaded and has elevated bnp - There is question that patient may be noncompliant with lasix script at home - Will begin iv diuresis. 60mg lasix will be given in ED. - Will begin 40mg lasix iv bid - 1800cc fluid restrict - monitor is and os, daily weights - admit to pcu with tele for tx 2. Interstitial lung disease - patient on chronic 4L of o2, will continue and titrate to keep o2 >88 - continue at home inhalers 3. DM - continue at home basal insulin bid - sliding scale - hypoglycemic protocol - continue asa 4. GERD - continue continue protonix 5. HLD - continue zocor 6. Gout - continue allopurinol 7. HTN - continue lisinopril DVT prophylaxis - heparin]. Vital Signs Vital Signs Date Time Temp Pulse Resp B/P (MAP) Pulse Ox O2 Delivery O2 Flow Rate FiO2 04/21/21 18:45 74 20 150/74 (99) 93 Nasal Cannula 4.0 04/21/21 16:09 98.1 Laboratory Data Labs 24H Laboratory Tests 2 04/21/21 17:38: Immature Granulocyte % (Auto) 1.2, Neutrophils (%) (Auto) 73.6H, Lymphocytes (%) (Auto) 12.5L, Monocytes (%) (Auto) 9.3H, Eosinophils (%) (Auto) 3.3H, Basophils (%) (Auto) 0.1, Neutrophils # (Auto) 6.5, Lymphocytes # (Auto) 1.1L, Monocytes # (Auto) 0.8, Eosinophils # (Auto) 0.3, Basophils # (Auto) 0.0, Nucleated Red Blood Cells % (auto) 0.0, Anion Gap 7L, Glomerular Filtration Rate 46.3, Calcium Level 9.2, Total Bilirubin 0.9, Direct Bilirubin 0.2, Aspartate Amino Transf (AST/SGOT) 21, Alanine Aminotransferase (ALT/SGPT) 39, Alkaline Phosphatase 75, Total Creatine Kinase 124, Creatine Kinase MB < 1.0, Creatine Kinase MB Relative Index 0.81, Troponin I 0.05, ZC-Wxl-Z-Type Natriuretic Peptide 1661H, Total Protein 6.3L, Albumin 3.3, Albumin/Globulin Ratio 1.1, Thyroid Stimulating Hormone (TSH) 0.775, Free Thyroxine 1.02 CBC/BMP Laboratory Tests 04/21/21 17:38 Microbiology Microbiology 04/21/21 Respiratory Virus Panel (PCR) ([facility]), Received Pending Home Medications Scheduled Allopurinol (Allopurinol) 100 Mg Tablet, 200 MG PO DAILY Aspirin (Aspirin EC) 81 Mg Tablet.dr, 81 MG PO QHS Cholecalciferol (Vitamin D3) (Vitamin D3) 125 Mcg Tablet, 125 MCG PO DAILY Exenatide Microspheres (Bydureon Bcise) 2 Mg/0.85 Ml Auto.injct, 2 MG SC 1XWK WEDNESDAY MORNINGS Fluticasone Propion/Salmeterol (Advair Hfa 115-21 Mcg Inhaler) 12 Gm Hfa.aer.ad, 2 PUFF INH BID Furosemide (Furosemide) 40 Mg Tablet, 40 MG PO DAILY Insulin Glargine,Hum.rec.anlog (Lantus Solostar) 100 Unit/1 Ml Insuln.pen, 56 UNITS SC BID Insulin Human Lispro (Novolog) 100 Unit/1 Ml Vial, 1 DOSE SC AC PER SLIDING SCALE Lisinopril (Lisinopril) 5 Mg Tablet, 2.5 MG PO Q2D Multivitamin (Multivitamin) 1 Each Tablet, 2 TAB PO DAILY Pantoprazole Sodium (Pantoprazole Sodium) 40 Mg Tablet.dr, 40 MG PO DAILY Potassium Chloride (Potassium Chloride) 20 Meq Tablet.er, 10 MEQ PO DAILY Simvastatin (Simvastatin) 20 Mg Tab, 20 MG PO QHS Scheduled PRN Albuterol Sulfate (Proair Hfa) 8.5 Gm Hfa.aer.ad, 2 PUFF INH Q4H PRN for SOB/WHEEZING Allergies Coded Allergies: No Known Allergies (Unverified , 02/28/20) A-FIB/CHADSVASC A-FIB History Current/History of A-Fib/PAF?: No Attending Note Attending Note Mr. Askew is a 71-year old with a history of IDDM hypertension asthma CKD 3 ARMIDA HFpEF COPD with oxygen dependent respiratory failure aortic stenosis dyslipidemia IPL class III obesity and prostate cancer who is admitted for management of acute on chronic HFpEF. Plan: monitor I's and O's and daily weights while on Lasix /nocturnal CPAP/ follow-up ABG Rest per YOEL Luis's H&P ISHAN LUIS Apr 21, 2021 19:19 TAY GARCIA MD Apr 22, 2021 03:20
[2021-04-21] MEDS ORDERED: ALBUTEROL 90 MCG/ACT 8GM HFA INHALER INH PRN (19:20)
--- NOTE | 2021-04-21 21:42 | ECGEPIP ---
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
[2021-04-21] MEDS: ADVAIR HFA 115/21MCG INHALER INH SCH (23:09)
[2021-04-22] MEDS: SIMVASTATIN 20 MG TAB PO SCH ×2 (00:14→21:33)
[2021-04-22] MEDS: ASPIRIN 81MG ENTERIC TABLET PO SCH ×2 (00:14→21:33)
[2021-04-22] MEDS: LEVEMIR (INSULIN DETEMIR) 1 UNITS/0.01ML SC SCH ×3 (00:15→21:33)
[2021-04-22] MEDS: FUROSEMIDE 40MG/4ML VIAL (J1940) IV SCH ×5 (03:07→21:33)
[2021-04-22 06:02] LABS: HEMATOCRIT 43.9 % (42.0-52.0); HEMOGLOBIN 14.4 g/dl (13.5-17.5); MEAN CORPUSCULAR HEMOGLOBIN 29.6 pg (27.0-33.0); MEAN CORPUSCULAR HGB CONC 32.8 g/dl (32.0-36.5); MEAN CORPUSCULAR VOLUME 90.3 fl (80.0-96.0); PLATELET COUNT, AUTOMATED 148 10^3/uL (150-450); RED BLOOD COUNT 4.86 10^6/uL (4.30-6.10); WHITE BLOOD COUNT 9.5 10^3/uL (4.0-10.0)
[2021-04-22 06:17] LABS: ABG BASE EXCESS 3.7 (-2.0-2.0); ABG HCO3 27.5 MEQ/L (22.0-26.0); ABG O2 SATURATION 95.1 % (95.0-99.0); ABG PARTIAL PRESSURE CO2 38.7 mmHg (35.0-45.0); ABG PARTIAL PRESSURE O2 73.5 mmHg (75.0-100.0); ABG STANDARD HCO3 27.7 MEQ/L (22.0-26.0); ABG TOTAL CO2 28.7 MEQ/L (23.0-31.0); ABG pH (ARTERIAL) 7.469 UNITS (7.350-7.450)
[2021-04-22 06:30] LABS: CALCIUM LEVEL 9.1 MG/DL (8.8-10.2); CREATININE FOR GFR 1.55 MG/DL (0.70-1.30); POTASSIUM SERUM 4.2 MEQ/L (3.5-5.1)
[2021-04-22] MEDS ORDERED: FUROSEMIDE 40MG/4ML VIAL (J1940) IV SCH (07:00)
[2021-04-22] MEDS: HumaLOG INSULIN (NovoLOG) PER UNIT SC SCH ×4 (07:30→20:27)
[2021-04-22] MEDS: ADVAIR HFA 115/21MCG INHALER INH SCH ×2 (08:29→23:12)
[2021-04-22] MEDS: POTASSIUM CHLORIDE 10 MEQ SR TABLET PO SCH (09:32)
[2021-04-22] MEDS: PANTOPRAZOLE 40MG TAB (PROTONIX) PO SCH (09:32)
[2021-04-22] MEDS: allopurinoL 100 MG TAB PO SCH (09:32)
[2021-04-22] MEDS: HEPARIN SOD (PORCINE) 5000UNITS/ML 1ML VIAL/SYRINGE SC SCH ×2 (09:34→21:33)
--- NOTE | 2021-04-22 15:32 | REP ---
INDICATION: ?ILD vs edema. COMPARISON: Comparison is made with prior CT studies from June 06 1020 and September 27, 2019.. TECHNIQUE: Helical scanning is acquired. 3 mm axial images are generated. Coronal and sagittal MPR and coronal MIP images are generated. FINDINGS: Preliminary digital installment agent radiograph demonstrates diffuse interstitial lung disease predominantly peripheral pattern as seen on recent radiographs. Axial CT images confirm the presence of predominantly peripheral subpleural and fairly advanced interstitial fibrosis with some areas of honeycombing bilaterally in the lower lobes and upper lobes. This is similar to the prior studies and is consistent with advanced interstitial fibrotic lung disease. No superimposed edema or infiltrate. No pleural or pericardial effusion is seen. There is a lap band device at the gastroesophageal junction. Vascular calcification is observed. Scattered normal sized mediastinal lymph nodes are noted which are unchanged from comparison study. IMPRESSION: Diffuse interstitial fibrosis pattern similar but more pronounced than on the 2019 prior study. No evidence of superimposed infiltrate, edema, or effusion. <Electronically signed by Wicho Cisneros > 04/22/21 [id number]
--- NOTE | 2021-04-22 22:29 | IPNPDOC ---
Subjective Date Seen The patient was seen on 04/22/21. Subjective Chief Complaint/HPI Reports SOB is a little better. requiring 5 Liters of oxygen at presetn. Says has been urinating all night and his legs are less swollen. Objective Physical Examination General Exam: Positive: Alert, Cooperative, No Acute Distress Eye Exam: Positive: PERRLA, Conjunctiva & lids normal, EOMI; Negative: Sclera icteric ENT Exam: Positive: Atraumatic, Mucous membr. moist/pink, Pharynx Normal Neck Exam: Positive: Supple, JVD; Negative: thyromegaly Chest Exam: Positive: Normal air movement, Diminished, Other (bilateral diffuse crackles. ) Heart Exam: Positive: Rate Normal, Regular Rhythm, Normal S1, Normal S2, Murmurs (systolic murmur at the base ); Negative: Rubs Abdomen Exam: Positive: Normal bowel sounds, Soft, Other (very obese); Negative: Tenderness Extremity Exam: Positive: Edema (3+); Negative: Clubbing, Cyanosis Neuro Exam: Positive: Normal Speech, Strength at 5/5 X4 ext Psych Exam: Positive: Memory Intact, Oriented x 3 Assessment /Plan Assessment This is a 71 y/o male with a pmh of Morbid obesity s/p gastric lap band, HFpEF, htn, braden, prostate ca s/p prostatectomy, interstitial lung disease , chronic hypoxic resp failure on 4L of O2, DM presented to the ED on 04/21 after being referred here by his carbon brusher assembler for continued sob and worsening leg edema. Patient states that he has noticed his sob gradually worsening in the past few w eeks and is exacerbated by activity along with increased swelling of legs. CT chest showed Diffuse interstitial fibrosis pattern similar but more pronounced than on the 2019 prior study. No evidence of superimposed infiltrate, edema, or effusion. Vascular US was negative for DVT. Patient was admitted for diastolic CHF exacerbation. Acute on chronic HFpEF due to not following dietary fluid restriction at home and also not taking diuretics as directed. continue lasix IV 1800cc fluid restriction monitor is and os, daily weights Interstitial lung disease with severe pulmonary HTN and corpulmonale. patient on chronic 4L of o2, will continue and titrate to keep o2 >88 continue at home inhalers advair. Moderate Aortic stenosis continue diuresis. DM continue at home basal insulin bid sliding scale of lispro hypoglycemic protocol continue asa GERD continue continue protonix HLD continue zocor Gout continue allopurinol HTN hold lisinopril to allow for diuresis. Morbid obesity BMI of 44.9 complicating care. Plan/VTE VTE Prophylaxis Ordered?: Yes VS, I&O, 24H, Fishbone Vital Signs/I&O Vital Signs Date Time Temp Pulse Resp B/P (MAP) Pulse Ox O2 Delivery O2 Flow Rate FiO2 04/22/21 20:43 84 16 Nasal Cannula 5.0 04/22/21 19:28 94 04/22/21 14:13 160/72 (101) 04/22/21 14:10 97.8 I&O- Last 24 Hours up to 6 AM 04/22/21 07:00 Output Total 400 ml Balance -400 ml Laboratory Data 24H LABS Laboratory Tests 2 04/22/21 00:06: Bedside Glucose (Misc Panel) 163H 04/22/21 05:42: Nucleated Red Blood Cells % (auto) 0.0, Anion Gap 7L, Glomerular Filtration Rate 47.0, Calcium Level 9.1, Magnesium Level 2.0 04/22/21 06:08: Blood Gas Bicarbonate Standard 27.7H, Arterial Blood pH 7.469H, Arterial Blood Partial Pressure CO2 38.7, Arterial Blood Partial Pressure O2 73.5L, Arterial Blood Total CO2 28.7, Arterial Blood HCO3 27.5H, Arterial Blood Base Excess 3.7H, Arterial Blood Oxygen Saturation 95.1 04/22/21 07:50: Bedside Glucose (Misc Panel) 78L 04/22/21 13:11: Bedside Glucose (Misc Panel) 158H 04/22/21 17:45: Bedside Glucose (Misc Panel) 169H 04/22/21 20:26: Bedside Glucose (Misc Panel) 184H CBC/BMP Laboratory Tests 04/22/21 05:42 Microbiology Microbiology 04/21/21 Respiratory Virus Panel (PCR) ([facility]) - Final, Complete Human Rhinovirus/Enterovirus GUNNAR PINEDA MD Apr 22, 2021 22:29
[2021-04-22 22:47] VITALS: BP 131/62
[2021-04-22 23:00] VITALS: O2SAT 92
[2021-04-23] MEDS: FUROSEMIDE 40MG/4ML VIAL (J1940) IV SCH (02:09)
[2021-04-23] MEDS: ACETAMINOPHEN TAB 650MG DOSE (2X325MG) PO PRN ×2 (02:09→21:35)
[2021-04-23 06:00] VITALS: BP 125/61
[2021-04-23 06:35] LABS: HEMATOCRIT 46.2 % (42.0-52.0); HEMOGLOBIN 15.1 g/dl (13.5-17.5); MEAN CORPUSCULAR HEMOGLOBIN 29.3 pg (27.0-33.0); MEAN CORPUSCULAR HGB CONC 32.7 g/dl (32.0-36.5); MEAN CORPUSCULAR VOLUME 89.7 fl (80.0-96.0); PLATELET COUNT, AUTOMATED 153 10^3/uL (150-450); RED BLOOD COUNT 5.15 10^6/uL (4.30-6.10); WHITE BLOOD COUNT 8.8 10^3/uL (4.0-10.0)
[2021-04-23 07:07] LABS: CALCIUM LEVEL 9.3 MG/DL (8.8-10.2); CREATININE FOR GFR 1.93 MG/DL (0.70-1.30); GLOMERULAR FILTRATION RATE 36.5 (>42); MAGNESIUM LEVEL 2.1 MG/DL (1.8-2.4); POTASSIUM SERUM 3.9 MEQ/L (3.5-5.1)
[2021-04-23] MEDS: ADVAIR HFA 115/21MCG INHALER INH SCH ×2 (07:08→19:45)
[2021-04-23] MEDS: HumaLOG INSULIN (NovoLOG) PER UNIT SC SCH ×4 (07:23→21:00)
[2021-04-23] MEDS: LEVEMIR (INSULIN DETEMIR) 1 UNITS/0.01ML SC SCH ×2 (08:32→21:43)
[2021-04-23] MEDS: HEPARIN SOD (PORCINE) 5000UNITS/ML 1ML VIAL/SYRINGE SC SCH ×2 (08:39→21:35)
[2021-04-23] MEDS: PANTOPRAZOLE 40MG TAB (PROTONIX) PO SCH (08:39)
[2021-04-23] MEDS: POTASSIUM CHLORIDE 10 MEQ SR TABLET PO SCH (08:39)
[2021-04-23] MEDS: allopurinoL 100 MG TAB PO SCH (08:39)
[2021-04-23] MEDS ORDERED: LISINOPRIL *2.5 MG* TAB PO SCH (09:00)
[2021-04-23 10:54] VITALS: O2SAT 94
--- NOTE | 2021-04-23 17:23 | IPNPDOC ---
Subjective Date Seen The patient was seen on 04/23/21. Subjective Chief Complaint/HPI Shortness of breath is a little better than yesterday. He also reports that his leg swelling is better. He is on 5 L of oxygen he reports that he uses about 4 L at home Objective Physical Examination General Exam: Positive: Alert, Cooperative, No Acute Distress Eye Exam: Positive: PERRLA, Conjunctiva & lids normal, EOMI; Negative: Sclera icteric ENT Exam: Positive: Atraumatic, Mucous membr. moist/pink, Pharynx Normal Neck Exam: Positive: Supple, JVD; Negative: thyromegaly Chest Exam: Positive: Normal air movement, Diminished, Other (bilateral diffuse crackles. ) Heart Exam: Positive: Rate Normal, Regular Rhythm, Normal S1, Normal S2, Murmurs (systolic murmur at the base ); Negative: Rubs Abdomen Exam: Positive: Normal bowel sounds, Soft, Other (very obese); Negative: Tenderness Extremity Exam: Positive: Edema (3+); Negative: Clubbing, Cyanosis Neuro Exam: Positive: Normal Speech, Strength at 5/5 X4 ext Psych Exam: Positive: Memory Intact, Oriented x 3 Assessment /Plan Assessment This is a 71 y/o male with a pmh of Morbid obesity s/p gastric lap band, HFpEF, htn, CKD stage IIIb bradne, prostate ca s/p prostatectomy, interstitial lung disea se , chronic hypoxic resp failure on 4L of O2, DM presented to the ED on 04/21 after being referred here by his executive chairman of the board for continued sob and worsening leg edema. Patient states that he has noticed his sob gradually worsening in the past few weeks and is exacerbated by activity along with increased swelling of legs. CT chest showed Diffuse interstitial fibrosis pattern similar but more pronounced than on the 2019 prior study. No evidence of superimposed infiltrate, edema, or effusion. Vascular US was negative for DVT. Patient was admitted for diastolic CHF exacerbation. Acute on chronic HFpEF due to not following dietary fluid restriction at home and also not taking diuretics as directed. continue lasix IV 1800cc fluid restriction monitor is and os, daily weights Interstitial lung disease with severe pulmonary HTN and corpulmonale. CT chest reviewed patient on chronic 4L of o2, will continue and titrate to keep o2 >88 continue at home inhalers advair. Moderate Aortic stenosis continue diuresis. DM continue at home basal insulin bid sliding scale of lispro hypoglycemic protocol continue asa CKD stage IIIb Seems like his baseline creatinine is anywhere between 1.8-2.1 Creatinine is at baseline We will continue with diuresis On admission his creatinine was better than baseline which was likely due to fluid overload and dilutional effect GERD continue continue protonix HLD continue zocor Gout continue allopurinol HTN hold lisinopril to allow for diuresis with IV Lasix Morbid obesity BMI of 44.9 complicating care. Plan/VTE VTE Prophylaxis Ordered?: Yes VS, I&O, 24H, Fishbone Vital Signs/I&O Vital Signs Date Time Temp Pulse Resp B/P (MAP) Pulse Ox O2 Delivery O2 Flow Rate FiO2 04/23/21 10:54 94 Nasal Cannula 5.0 04/23/21 06:00 97.4 75 18 125/61 (82) I&O- Last 24 Hours up to 6 AM 04/23/21 06:00 Intake Total 300 ml Output Total 1500 ml Balance -1200 ml Laboratory Data 24H LABS Laboratory Tests 2 04/22/21 17:45: Bedside Glucose (Misc Panel) 169H 04/22/21 20:26: Bedside Glucose (Misc Panel) 184H 04/23/21 06:11: Nucleated Red Blood Cells % (auto) 0.0, Anion Gap 6L, Glomerular Filtration Rate 36.5L, Calcium Level 9.3, Magnesium Level 2.1 04/23/21 11:47: Bedside Glucose (Misc Panel) 249H 04/23/21 17:20: CBC/BMP Laboratory Tests 04/23/21 06:11 Microbiology Microbiology 04/21/21 Respiratory Virus Panel (PCR) ([facility]) - Final, Complete Human Rhinovirus/Enterovirus GUNNAR PINEDA MD Apr 23, 2021 17:22
[2021-04-23] MEDS: FUROSEMIDE 20MG/2ML VIAL (J1940) IV SCH (17:53)
[2021-04-23 21:00] VITALS: BP 151/93
[2021-04-23] MEDS: ASPIRIN 81MG ENTERIC TABLET PO SCH (21:35)
[2021-04-23] MEDS: SIMVASTATIN 20 MG TAB PO SCH (21:35)
[2021-04-24 06:00] VITALS: BP 116/69
[2021-04-24 06:34] LABS: HEMATOCRIT 44.2 % (42.0-52.0); HEMOGLOBIN 14.8 g/dl (13.5-17.5); MEAN CORPUSCULAR HEMOGLOBIN 30.2 pg (27.0-33.0); MEAN CORPUSCULAR HGB CONC 33.5 g/dl (32.0-36.5); MEAN CORPUSCULAR VOLUME 90.2 fl (80.0-96.0); PLATELET COUNT, AUTOMATED 152 10^3/uL (150-450)
[2021-04-24 06:58] LABS: CALCIUM LEVEL 8.9 MG/DL (8.8-10.2); MAGNESIUM LEVEL 2.2 MG/DL (1.8-2.4); POTASSIUM SERUM 4.1 MEQ/L (3.5-5.1)
[2021-04-24] MEDS: ADVAIR HFA 115/21MCG INHALER INH SCH ×2 (07:37→20:19)
[2021-04-24] MEDS: PANTOPRAZOLE 40MG TAB (PROTONIX) PO SCH (08:36)
[2021-04-24] MEDS: allopurinoL 100 MG TAB PO SCH (08:36)
[2021-04-24] MEDS: POTASSIUM CHLORIDE 10 MEQ SR TABLET PO SCH (08:36)
[2021-04-24] MEDS: HEPARIN SOD (PORCINE) 5000UNITS/ML 1ML VIAL/SYRINGE SC SCH ×2 (08:36→20:37)
[2021-04-24] MEDS: FUROSEMIDE 20MG/2ML VIAL (J1940) IV SCH ×2 (08:37→17:08)
[2021-04-24] MEDS: HumaLOG INSULIN (NovoLOG) PER UNIT SC SCH ×4 (08:37→20:36)
[2021-04-24 09:00] VITALS: BP 116/70
--- NOTE | 2021-04-24 12:45 | IPNPDOC ---
Subjective Date Seen The patient was seen on 04/24/21. Subjective Chief Complaint/HPI Feels slightly better. Reports that his shortness of breath is not as bad as before and he is able to move around better without getting acutely short of breath as was happening at home. He is still on 5 L of oxygen. He does use 44- 1/2 L at home. Leg swelling is slowly improving Objective Physical Examination General Exam: Positive: Alert, Cooperative, No Acute Distress Eye Exam: Positive: PERRLA, Conjunctiva & lids normal, EOMI; Negative: Sclera icteric ENT Exam: Positive: Atraumatic, Mucous membr. moist/pink, Pharynx Normal Neck Exam: Positive: Supple, JVD; Negative: thyromegaly Chest Exam: Positive: Normal air movement, Diminished, Other (bilateral diffuse crackles. ) Heart Exam: Positive: Rate Normal, Regular Rhythm, Normal S1, Normal S2, Murmurs (systolic murmur at the base ); Negative: Rubs Abdomen Exam: Positive: Normal bowel sounds, Soft, Other (very obese); Negative: Tenderness Extremity Exam: Positive: Edema (3+); Negative: Clubbing, Cyanosis Neuro Exam: Positive: Normal Speech, Strength at 5/5 X4 ext Psych Exam: Positive: Memory Intact, Oriented x 3 Assessment /Plan Assessment This is a 71 y/o male with a pmh of Morbid obesity s/p gastric lap band, HFpEF, htn, CKD stage IIIb braden, prostate ca s/p prostatectomy, interstitial lung disease , chronic hypoxic resp failure on 4L of O2, DM presented to the ED on 04/21 after being referred here by his pharmacy ancillary for continued sob and worsening leg edema. Patient states that he has noticed his sob gradually worsening in the past few weeks and is exacerbated by activity along with increased swelling of legs. CT chest showed Diffuse interstitial fibrosis pattern similar but more pronounced than on the 2019 prior study. No evidence of superimposed infiltrate, edema, or effusion. Vascular US was negative for DVT. Patient was admitted for diastolic CHF exacerbation. Acute on chronic HFpEF due to not following dietary fluid restriction at home and also not taking diur etics as directed. continue lasix IV 1800cc fluid restriction monitor I/o, daily weights Interstitial lung disease with severe pulmonary HTN and corpulmonale. CT chest reviewed patient on chronic 4L of o2, will continue and titrate to keep o2 >88 continue at home inhalers advair. Follow-up with pulmonary as an outpatient Moderate Aortic stenosis continue diuresis. DM continue at home basal insulin bid sliding scale of lispro hypoglycemic protocol continue asa CKD stage IIIb Seems like his baseline creatinine is anywhere between 1.8-2.1 Creatinine is at baseline We will continue with diuresis On admission his creatinine was better than baseline which was likely due to fluid overload and dilutional effect GERD continue continue protonix HLD continue zocor Gout continue allopurinol HTN hold lisinopril to allow for diuresis with IV Lasix Morbid obesity BMI of 44.9 complicating care. Plan/VTE VTE Prophylaxis Ordered?: Yes VS, I&O, 24H, Fishbone Vital Signs/I&O Vital Signs Date Time Temp Pulse Resp B/P (MAP) Pulse Ox O2 Delivery O2 Flow Rate FiO2 04/24/21 12:22 94 Venturi Mask 5.0 04/24/21 09:00 97.6 72 18 116/70 (85) I&O- Last 24 Hours up to 6 AM 04/24/21 06:00 Intake Total 660 ml Output Total 1300 ml Balance -640 ml Laboratory Data 24H LABS Laboratory Tests 2 04/23/21 17:20: Bedside Glucose (Misc Panel) 156H 04/23/21 21:30: Bedside Glucose (Misc Panel) 203H 04/24/21 05:57: Bedside Glucose (Misc Panel) 133H 04/24/21 06:17: Nucleated Red Blood Cells % (auto) 0.0, Anion Gap 4L, Glomerular Filtration Rate 35.0L, Calcium Level 8.9, Magnesium Level 2.2 04/24/21 12:17: Bedside Glucose (Misc Panel) 232H CBC/BMP Laboratory Tests 04/24/21 06:17 Microbiology Microbiology 04/21/21 Respiratory Virus Panel (PCR) ([facility]) - Final, Complete Human Rhinovirus/Enterovirus GUNNAR PINEDA MD Apr 24, 2021 12:45
[2021-04-24 13:29] VITALS: O2SAT 93
[2021-04-24 14:30] VITALS: BP 146/72
[2021-04-24] MEDS: SIMVASTATIN 20 MG TAB PO SCH (20:36)
[2021-04-24] MEDS: ASPIRIN 81MG ENTERIC TABLET PO SCH (20:37)
[2021-04-24 21:00] VITALS: O2SAT 92
[2021-04-24] MEDS ORDERED: LEVEMIR (INSULIN DETEMIR) 1 UNITS/0.01ML SC SCH (21:00)
[2021-04-24 22:00] VITALS: BP 137/62
[2021-04-25] MEDS: ACETAMINOPHEN TAB 650MG DOSE (2X325MG) PO PRN (03:24)
[2021-04-25 05:18] VITALS: BP 132/64
[2021-04-25 06:13] LABS: HEMATOCRIT 44.1 % (42.0-52.0); HEMOGLOBIN 14.4 g/dl (13.5-17.5); MEAN CORPUSCULAR HEMOGLOBIN 29.3 pg (27.0-33.0); MEAN CORPUSCULAR HGB CONC 32.7 g/dl (32.0-36.5); MEAN CORPUSCULAR VOLUME 89.8 fl (80.0-96.0); PLATELET COUNT, AUTOMATED 168 10^3/uL (150-450); RED BLOOD COUNT 4.91 10^6/uL (4.30-6.10); WHITE BLOOD COUNT 8.9 10^3/uL (4.0-10.0)
[2021-04-25 06:44] LABS: CALCIUM LEVEL 9.2 MG/DL (8.8-10.2); CREATININE FOR GFR 2.19 MG/DL (0.70-1.30); GLOMERULAR FILTRATION RATE 31.6 (>42); MAGNESIUM LEVEL 2.2 MG/DL (1.8-2.4); POTASSIUM SERUM 4.5 MEQ/L (3.5-5.1)
[2021-04-25] MEDS: ADVAIR HFA 115/21MCG INHALER INH SCH (07:35)
[2021-04-25] MEDS: POTASSIUM CHLORIDE 10 MEQ SR TABLET PO SCH (09:55)
[2021-04-25] MEDS: PANTOPRAZOLE 40MG TAB (PROTONIX) PO SCH (09:55)
[2021-04-25] MEDS: HEPARIN SOD (PORCINE) 5000UNITS/ML 1ML VIAL/SYRINGE SC SCH (09:55)
[2021-04-25] MEDS: allopurinoL 100 MG TAB PO SCH (09:55)
[2021-04-25] MEDS: HumaLOG INSULIN (NovoLOG) PER UNIT SC SCH ×2 (09:56→13:26)
[2021-04-25] MEDS: FUROSEMIDE 20MG/2ML VIAL (J1940) IV SCH (09:57)
--- NOTE | 2021-04-25 11:30 | DS.PDOC ---
Discharge Summary General Date of Admission Apr 21, 2021 at 18:55 Date of Discharge 04/25/21 Discharge Summary PROCEDURES PERFORMED DURING STAY: [None]. DISCHARGE DIAGNOSES: Acute on chronic diastolic congestive heart failure Interstitial lung disease with severe pulmonary HTN and corpulmonale. Chronic respiratory failure with hypoxia uses 4 L at Moderate aortic stenosis CKD stage IIIb GERD Hyperlipidemia Morbid obesity s/p gastric lap band ARMIDA uses CPAP Prostate ca s/p prostatectomy in may 2020, planned for RT COMPLICATIONS/CHIEF COMPLAINT: Congestive Heart Failure (Chf). HOSPITAL COURSE: This is a 71 y/o male with a pmh of Morbid obesity s/p gastric lap band, HFpEF, htn, CKD stage IIIb armida, prostate ca s/p prostatectomy, interstitial lung disease, chronic hypoxic resp failure on 4L of O2, DM presented to the ED on 04/21 after being referred here by his superintendent general for continued sob and worsening leg edema. Patient states that he has noticed his sob gradually worsening in the past few weeks and is exacerbated by activity along with increased swelling of legs. CT chest showed Diffuse interstitial fibrosis pattern similar but more pronounced than on the 2019 prior study. No evidence of superimposed infiltrate, edema, or effusion. Vascular US was negative for DVT. Patient was admitted for diastolic CHF exacerbation. Acute on chronic HFpEF due to not following dietary fluid restriction at home and also not taking diuretics as directed. continue lasix 1800cc fluid restriction monitor daily weights Interstitial lung disease with severe pulmonary HTN and corpulmonale. CT chest reviewed patient on chronic 4L of o2, will continue and titrate to keep o2 >88 continue at home inhalers advair. Follow-up with pulmonary as an outpatient Moderate Aortic stenosis continue diuresis. DM continue at home basal insulin bid sliding scale of lispro hypoglycemic protocol continue asa CKD stage IIIb Seems like his baseline creatinine is anywhere between 1.8-2.1 Creatinine is at baseline We will continue with diuresis On admission his creatinine was better than baseline which was likely due to fluid overload and dilutional effect GERD continue continue protonix HLD continue zocor Gout continue allopurinol HTN hold lisinopril to allow for diuresis with IV Lasix Morbid obesity BMI of 44.9 complicating care. Prostate Ca s/p prostatectomy in may 2020. Has urinary incontinence planned for RT with Dr Sim. Has follow up in April. DISCHARGE MEDICATIONS: Please see below. ALLERGIES: Please see below. PHYSICAL EXAMINATION ON DISCHARGE: VITAL SIGNS: Please see below. General Exam: Positive: Alert, Cooperative, No Acute Distress Eye Exam: Positive: PERRLA, Conjunctiva & lids normal, EOMI; Negative: Sclera icteric ENT Exam: Positive: Atraumatic, Mucous membr. moist/pink, Pharynx Normal Neck Exam: Positive: Supple, JVD; Negative: thyromegaly Chest Exam: Positive: Normal air movement, Diminished, Other (bilateral diffuse crackles. ) Heart Exam: Positive: Rate Normal, Regular Rhythm, Normal S1, Normal S2, Murmurs (systolic murmur at the base ); Negative: Rubs Abdomen Exam: Positive: Normal bowel sounds, Soft, Other (very obese); Negative: Tenderness Extremity Exam: Positive: Edema (1+); Negative: Clubbing, Cyanosis Neuro Exam: Positive: Normal Speech, Strength at 5/5 X4 ext Psych Exam: Positive: Memory Intact, Oriented x 3 LABORATORY DATA: Please see below. IMAGING: CT chest without contrast: Preliminary digital quarter supervisor radiograph demonstrates diffuse interstitial lung disease predominantly peripheral pattern as seen on recent radiographs. Axial CT images confirm the presence of predominantly peripheral subpleural and fairly advanced interstitial fibrosis with some areas of honeycombing bilaterally in the lower lobes and upper lobes. This is similar to the prior studies and is consistent with advanced interstitial fibrotic lung disease. No superimposed edema or infiltrate. No pleural or pericardial effusion is seen. There is a lap band device at the gastroesophageal junction. Vascular calcification is observed. Scattered normal sized mediastinal lymph nodes are noted which are unchanged from comparison study. IMPRESSION: Diffuse interstitial fibrosis pattern similar but more pronounced than on the 2019 prior study. No evidence of superimposed infiltrate, edema, or effusion. ACTIVITY: [As tolerated]. DIET: Carb consistent diet, fluid restriction 1.8 L DISCHARGE PLAN: Home DISCHARGE INSTRUCTIONS: Follow-up with Dr. Khan in 2 weeks PMD in one DISCHARGE CONDITION: [Stable]. TIME SPENT ON DISCHARGE: 35 minutes. Vital Signs/I&Os Vital Signs Date Time Temp Pulse Resp B/P (MAP) Pulse Ox O2 Delivery O2 Flow Rate FiO2 04/25/21 05:18 98.7 84 18 132/64 (86) 92 Venturi Mask 4.0 I&O- Last 24 Hours up to 6 AM 04/25/21 06:00 Intake Total 1350 ml Output Total 2375 ml Balance -1025 ml Laboratory Data Labs 24H Laboratory Tests 2 04/24/21 12:17: Bedside Glucose (Misc Panel) 232H 04/24/21 17:08: Bedside Glucose (Misc Panel) 168H 04/24/21 19:51: Bedside Glucose (Misc Panel) 272H 04/25/21 05:56: Nucleated Red Blood Cells % (auto) 0.0, Anion Gap 6L, Glomerular Filtration Rate 31.6L, Calcium Level 9.2, Magnesium Level 2.2 CBC/BMP Laboratory Tests 04/25/21 05:56 FSBS Laboratory Tests Test 04/24/21 12:17 04/24/21 17:08 04/24/21 19:51 Range/Units Bedside Glucose (Misc Panel) 232 168 272 83-110 MG/DL Microbiology Microbiology 04/21/21 Respiratory Virus Panel (PCR) (DESTINY) - Final, Complete Human Rhinovirus/Enterovirus Discharge Medications Scheduled Allopurinol (Allopurinol) 100 Mg Tablet, 200 MG PO DAILY, (Reported) Aspirin (Aspirin EC) 81 Mg Tablet.dr, 81 MG PO QHS, (Reported) Cholecalciferol (Vitamin D3) (Vitamin D3) 125 Mcg Tablet, 125 MCG PO DAILY, (Reported) Exenatide Microspheres (Bydureon Bcise) 2 Mg/0.85 Ml Auto.injct, 2 MG SC 1XWK, (Reported) WEDNESDAY MORNINGS Fluticasone Propion/Salmeterol (Advair Hfa 115-21 Mcg Inhaler) 12 Gm Hfa.aer.ad, 2 PUFF INH BID, (Reported) Furosemide (Furosemide) 40 Mg Tablet, 40 MG PO DAILY, (Reported) Insulin Glargine,Hum.rec.anlog (Lantus Solostar) 100 Unit/1 Ml Insuln.pen, 40 UNITS SC BID Insulin Human Lispro (Novolog) 100 Unit/1 Ml Vial, 1 DOSE SC AC, (Reported) PER SLIDING SCALE Lisinopril (Lisinopril) 5 Mg Tablet, 2.5 MG PO Q2D, (Reported) Multivitamin (Multivitamin) 1 Each Tablet, 2 TAB PO DAILY, (Reported) Pantoprazole Sodium (Pantoprazole Sodium) 40 Mg Tablet.dr, 40 MG PO DAILY, (Reported) Potassium Chloride (Potassium Chloride) 20 Meq Tablet.er, 10 MEQ PO DAILY, (Reported) Simvastatin (Simvastatin) 20 Mg Tab, 20 MG PO QHS, (Reported) Scheduled PRN Albuterol Sulfate (Proair Hfa) 8.5 Gm Hfa.aer.ad, 2 PUFF INH Q4H PRN for SOB/WHEEZING, (Reported) Allergies Coded Allergies: No Known Allergies (Unverified , 02/28/20) GUNNAR PINEDA MD Apr 25, 2021 11:30
[2021-04-25] MEDS ORDERED: LANTINJ4 SC (11:33)
== END 2021-04-25 14:30 | disposition home or self-care (01) | DRG 291 ==
LOC: M ED 16:08 → M ED INP 18:55 → ENRESERV 04-22 13:50 → M MSPAV 04-22 23:15
PROVIDERS: ADMIT Internal Medicine; ATTEND Internal Medicine Nephrology
DX: I13.0 Hypertensive heart and chronic kidney disease with heart failure and stage 1 through stage 4 chronic kidney disease, or unspecified chronic kidney disease (principal); I50.33 Acute on chronic diastolic (congestive) heart failure; J96.11 Chronic respiratory failure with hypoxia; Z68.41 Body mass index [BMI] 40.0-44.9, adult; I35.0 Nonrheumatic aortic (valve) stenosis; N18.32 Chronic kidney disease, stage 3b; E78.5 Hyperlipidemia, unspecified; E66.01 Morbid (severe) obesity due to excess calories; I27.20 Pulmonary hypertension, unspecified; I27.81 Cor pulmonale (chronic); G47.33 Obstructive sleep apnea (adult) (pediatric); Z85.46 Personal history of malignant neoplasm of prostate; E11.9 Type 2 diabetes mellitus without complications; K21.9 Gastro-esophageal reflux disease without esophagitis; M10.9 Gout, unspecified; Z79.899 Other long term (current) drug therapy; Z79.82 Long term (current) use of aspirin; Z79.4 Long term (current) use of insulin

== ENCOUNTER → 2021-04-30 | Outpatient (CLI) | payer OTHER ==
[~2021-04-30] MED LIST changes: +PANT-23 PO
--- NOTE | 2021-04-30 13:39 | RADONC ---
Radiation Oncology Hx/FUP Radiation Oncology Hx/FUP Date of Service: Apr 30, 2021 Pt Identifier Kevin Askew is a 71 year old male former smoker with agent orange exposure and a history of prostate cancer [id number] [place] 4+4=8 s/p RP on 06/04/[address] Rome showing positive left posterior margin as well as SV+ and TAI+. His post-op PSA was 0.10 on 06/30/20 and has risen further to 0.39 on 12/27/20. He was given 45 mg of Lupron on 01/28/21 with a decision to delay initiation of salvage RT in effort to allow him to regain full urinary continence prior to proceeding with treatment. He is seen today for follow up. Diagnosis/Treatment History Oncologic History Followed by Dr. Rome for elevated PSA and positive TRUS biopsy: 04/23/20 Biopsy: [place] 4+4=8 3/12 cores [place] 4+3=7 2/12 cores Nicho 3+3=7 1/12 cores All left sided 6/12 cores+ Elected to pursue RP 06/04/20 RALP [id number] left posterior margin positive R2 resection Post-op PSA: 06/30/20 0.10 10/07/20 0.19 11/18/20 0.33 12/27/20 0.39 IPSS 5 PEDRO LUIS 1 01/28/21 Lupron 45 mg Interval History Kevin is here with his . He reports that he has been struggling mightily in recent weeks with his CHF, has been admitted to [facility] twice recently for this. Most recently discharged last Wednesday. He is on 1.8 L fluid restriction and taking lasix 40 mg BID. He has GOLDMAN and notes that when he checks his oxygenation at rest (on his usual 2L NC) he is in the 90s, but when he walks any distance, he gets into the low 70s. This improved with rest. With respect to continence he is down to 1-2 depends daily, most leakage is associated with stress, and activity. He feels he empties well. No bowel problems. No lupron side effects. No hot flashes. Current Therapy Lupron, salvage RT pending Stage Prostate adenocarcinoma [id number] [place] 4+4=8 post-op PSA 0.39 stage IIIB Social History: 25 pack year former smoker quit in the Drinks 1-2 alcoholic beverages 2 days per week Agent orange exposure Worked in [employer] Allergies / Meds Allergies: Coded Allergies: No Known Allergies (Unverified , 02/28/20) Home Meds Active Scripts Insulin Glargine,Hum.rec.anlog (Lantus Solostar) 100 Unit/1 Ml Insuln.pen, 40 UNITS SC BID, #1 INJ Prov:GUNNAR PINEDA MD 04/25/21 Reported Medications Pantoprazole Sodium (Pantoprazole Sodium) 40 Mg Tablet.dr, 40 MG PO DAILY, TAB 04/21/21 Cholecalciferol (Vitamin D3) (Vitamin D3) 125 Mcg Tablet, 125 MCG PO DAILY, TAB 03/24/21 Exenatide Microspheres (Bydureon Bcise) 2 Mg/0.85 Ml Auto.injct, 2 MG SC 1XWK, INJ WEDNESDAY MORNINGS 03/24/21 Aspirin (Aspirin EC) 81 Mg Tablet.dr, 81 MG PO QHS 03/24/21 Fluticasone Propion/Salmeterol (Advair Hfa 115-21 Mcg Inhaler) 12 Gm Hfa.aer.ad, 2 PUFF INH BID 03/24/21 Furosemide (Furosemide) 40 Mg Tablet, 40 MG PO DAILY, TAB 03/24/21 Potassium Chloride (Potassium Chloride) 20 Meq Tablet.er, 10 MEQ PO DAILY, TAB 01/10/21 Multivitamin (Multivitamin) 1 Each Tablet, 2 TAB PO DAILY, TAB 01/10/21 Albuterol Sulfate (Proair Hfa) 8.5 Gm Hfa.aer.ad, 2 PUFF INH Q4H PRN for SOB/WHEEZING 01/10/21 Insulin Human Lispro (Novolog) 100 Unit/1 Ml Vial, 1 DOSE SC AC PER SLIDING SCALE 06/04/20 Lisinopril (Lisinopril) 5 Mg Tablet, 2.5 MG PO Q2D, TAB 06/03/20 Allopurinol (Allopurinol) 100 Mg Tablet, 200 MG PO DAILY, TAB 06/03/20 Simvastatin (Simvastatin) 20 Mg Tab, 20 MG PO QHS, TAB 04/01/16 Review of Systems Review of Systems Constitutional: Reports: Fatigue; Denies: Chills, Fever, Night Sweats, Weight Loss Eyes: Denies: Pain HEENT: Denies: Head Aches Skin: Denies: Rash Pulmonary: Reports: Dyspnea Cardiovascular: Reports: Orthopnea, Edema Gastrointestinal: Denies: Abdominal Pain Genitourinary: Reports: Incontinence; Denies: Dysuria, Frequency Musculoskeletal: Denies: Neck pain, Back pain Neurological: Denies: Weakness, Numbness Psych: Reports: Mood Normal Physical Examination Vital Signs Wt 264 lbs T 96.4 P 79 RR 22 BP 119/71 O2 90% (2L NC) Pain 0 Fatigue 4 General Exam: Positive: Alert, Cooperative, Mild Distress (Audibly winded) Eye Exam: Positive: PERRLA, EOMI ENT EXAM: Positive: Atraumatic Neck Exam: Positive: Supple Chest Exam: Positive: Clear to auscultation, Rales, Rhonchi (Scattered rhonchi) Heart Exam: Positive: Rate Normal, Regular Rhythm Abdomen Exam: Positive: Soft Extremity Exam: Positive: Edema (2+ to knee BL) Skin Exam: Positive: Nl turgor and temperature Neuro Exam: Positive: Normal Gait, Normal Speech, Cranial Nerves 3-12 NL Psych Exam: Positive: Mental status NL Diagnostic and Laboratory Diagnostic Review Radiologic images, relevant labs and pathology reports were personally reviewed and discussed with Mr. Askew. Assessment and Plan Impression Assessment Mr. Askew is a 71 year old male former smoker with agent orange exposure and a history of prostate cancer [id number] [place] 4+4=8 s/p RP on 06/04/[address] Rome showing positive left posterior margin as well as SV+ and TAI+. His post-op PSA was 0.10 on 06/30/20 and has risen further to 0.39 on 12/27/20. He was given 45 mg of Lupron on 01/28/21 with a decision to delay initiation of salvage RT in effort to allow him to regain full urinary continence prior to proceeding with treatment. He is seen today for follow up. He has struggled mightily with his superimposed CHF on ILD, recently hospitalized with CHF exacerbation. He is retaining fluid and persistently SOB. He thankfully does have close cardiology follow up this week. With respect to lupron he is tolerating it well. He has cut down to 1-2 depends daily, was ~3 on average in January, he does report that his urination is better overall. He is however on a strict fluid restriction now, which might be confo unding. He agrees that his improvement has plateaued at this point. My assessment is that he is not well-enough to proceed with salvage RT at this particular moment in light of the poorly compensated CHF. I explained that the lupron allows us defer initiation of salvage RT further out, and that if his 6 month injection is near wearing off, we could extend the ADT course. However, I think it would be useful to reassess his condition in ~ 6 weeks, and if he is feeling and breathing better then we could proceed with the RT. He agreed. Performance Status ECOG 2 Plan Telehealth follow up in 6 weeks to reassess cardiopulmonary status prior to RT Mr. Askew was encouraged to call with questions or concerns in the interim period. Billing Statement Total time of [24] minutes was spent preparing for the visit [1], obtaining HPI [6], examining the patient [2], reviewing diagnostic tests [1], discussing management options [6], coordinating care [1], and writing this note [7]. CHERISE SOLIS MD Apr 30, 2021 13:39
== END ==
LOC: M ONCR 10:55
PROVIDERS: ATTEND General Practice
DX: C61 Malignant neoplasm of prostate (principal); I50.9 Heart failure, unspecified; Z77.098 Contact with and (suspected) exposure to other hazardous, chiefly nonmedicinal, chemicals; Z79.4 Long term (current) use of insulin; Z79.82 Long term (current) use of aspirin; Z79.899 Other long term (current) drug therapy; Z87.891 Personal history of nicotine dependence; Z99.81 Dependence on supplemental oxygen

== ENCOUNTER → 2021-05-05 | Outpatient (REF) | payer OTHER | LOC: M LAB REF 17:12 | PROVIDERS: ATTEND Internal Medicine Nephrology | DX: N18.31 Chronic kidney disease, stage 3a (principal) ==

== ENCOUNTER → 2021-07-08 | Outpatient (REF) | payer OTHER | LOC: M LAB REF 17:29 | PROVIDERS: ATTEND Internal Medicine Nephrology | DX: N18.32 Chronic kidney disease, stage 3b (principal) ==

== ENCOUNTER → 2021-07-10 | Outpatient (RCR) | payer OTHER | LOC: M ONCR 06-24 13:43 | PROVIDERS: ATTEND General Practice | DX: C61 Malignant neoplasm of prostate (principal) ==

== ENCOUNTER 2021-08-08 10:28 | Outpatient (RCR) | payer OTHER | END 2021-08-10 | LOC: M ONCR 10:28 | PROVIDERS: ATTEND General Practice | DX: C61 Malignant neoplasm of prostate (principal) ==

== ENCOUNTER 2021-08-27 10:36 | Outpatient (RCR) | payer OTHER ==
[~2021-08-27 10:36] MED LIST changes: -LISI-898 PO; +LISI5TAB11 PO; +LOSA25TA13 PO; -LOSA25TA14 PO
== END 2021-09-09 ==
LOC: M ONCR 10:36
PROVIDERS: ATTEND General Practice
DX: C61 Malignant neoplasm of prostate (principal)

== ENCOUNTER → 2021-11-24 | Outpatient (REF) | payer OTHER | LOC: M LAB REF 16:38 | PROVIDERS: ATTEND Nurse Practitioner Family | DX: N18.32 Chronic kidney disease, stage 3b (principal) ==

== ENCOUNTER → 2021-11-27 | Outpatient (CLI) | payer OTHER ==
[2021-11-27 15:41] LABS: PROSTATIC SPECIFIC AG MONITOR 0.1 NG/ML (< 4.00)
== END ==
LOC: M LAB 14:11
PROVIDERS: ATTEND General Practice
DX: C61 Malignant neoplasm of prostate (principal)

== ENCOUNTER → 2021-12-04 | Outpatient (CLI) | payer OTHER ==
[~2021-12-04] MED LIST changes: -D31000TA2 PO; +VITA100093 PO
== END ==
LOC: M ONCR 09:17
PROVIDERS: ATTEND Radiology Radiation Oncology
DX: C61 Malignant neoplasm of prostate (principal); Z79.4 Long term (current) use of insulin; Z79.82 Long term (current) use of aspirin; Z79.899 Other long term (current) drug therapy; Z92.3 Personal history of irradiation

== ENCOUNTER → 2022-01-16 | Outpatient (CLI) | payer OTHER ==
[2022-01-16 13:09] LABS: HEMOGLOBIN A1c 6.8 %
== END ==
LOC: M LAB 12:01
PROVIDERS: ATTEND Internal Medicine
DX: E11.22 Type 2 diabetes mellitus with diabetic chronic kidney disease (principal)

== ENCOUNTER → 2022-01-16 | Outpatient (CLI) | payer OTHER ==
[2022-01-16 13:17] LABS: CHOLESTEROL RISK RATIO 3.475 (<5)
== END ==
LOC: M LAB 12:04
PROVIDERS: ATTEND Nurse Practitioner Family
DX: E11.22 Type 2 diabetes mellitus with diabetic chronic kidney disease (principal); N18.9 Chronic kidney disease, unspecified

== ENCOUNTER → 2022-03-13 | Outpatient (CLI) | payer OTHER | LOC: M LAB 12:40 | PROVIDERS: ATTEND Urology | DX: C61 Malignant neoplasm of prostate (principal) ==

== ENCOUNTER → 2022-04-30 | Outpatient (REF) | payer OTHER ==
[2022-04-30 18:46] LABS: APPEARANCE, URINE HAZY (CLEAR); BACTERIA, URINE AUTO 1+ (NEGATIVE); BILIRUBIN, URINE AUTO NEGATIVE (NEGATIVE); BLOOD, URINE BLOOD 1+ (NEGATIVE); COLOR, URINE YELLOW (YELLOW); GLUCOSE, URINE (UA) AUTO NEGATIVE (NEGATIVE); KETONE, URINE AUTO NEGATIVE (NEGATIVE); LEUKOCYTE ESTERASE, URINE AUTO 2+ (NEGATIVE); MUCUS, URINE SMALL (NEGATIVE); NITRITE, URINE AUTO NEGATIVE (NEGATIVE); PROTEIN, URINE AUTO 1+ mg/dL (NEGATIVE); RBC, URINE AUTO 4 /HPF (0-3); SPECIFIC GRAVITY URINE AUTO 1.017 (1.002-1.035); SQUAMOUS EPITHELIAL CELL UR AU 0 /HPF (0-6); UROBILINOGEN, URINE AUTO 0.2 mg/dL (0.0-2.0); WBC, URINE AUTO 25 /HPF (0-3)
== END ==
LOC: M SMT 17:04
PROVIDERS: ATTEND Urology
DX: N39.0 Urinary tract infection, site not specified (principal)

== ENCOUNTER 2022-05-05 21:06 | Inpatient (IN) | payer OTHER ==
[~2022-05-05] VITALS: Ht 167.6 cm; Wt 116.1 kg
[2022-05-05] MEDS ORDERED: NS 1,000 ML IV ONE (22:35)
[2022-05-05] MEDS ORDERED: cefTRIAXone SOD 1 GM in D5W MINI-BAG PLUS 50 ML IV ONE (22:50)
[2022-05-05 23:03] LABS: BASO % 0.3 % (0.0-1.0); EOS # 0.1 10^3/uL (0.0-0.5); EOS % 1.3 % (0.0-3.0); HEMOGLOBIN 14.9 g/dl (13.5-17.5); LYMPH # 0.8 10^3/uL (1.5-5.0); LYMPH % 7.4 % (24.0-44.0); MEAN CORPUSCULAR HEMOGLOBIN 29.7 pg (27.0-33.0); MEAN CORPUSCULAR HGB CONC 32.4 g/dl (32.0-36.5); MEAN CORPUSCULAR VOLUME 91.8 fl (80.0-96.0); MONO # 1.1 10^3/uL (0.0-0.8); MONO % 10.7 % (2.0-8.0); NEUTROPHILS # 8.1 10^3/uL (1.5-8.5); NEUTROPHILS % 79.7 % (36.0-66.0); PLATELET COUNT, AUTOMATED 205 10^3/uL (150-450); RED BLOOD COUNT 5.01 10^6/uL (4.30-6.10); WHITE BLOOD COUNT 10.1 10^3/uL (4.0-10.0)
[2022-05-05 23:30] LABS: ALBUMIN 3.4 GM/DL (3.2-5.2); BILIRUBIN,DIRECT 0.5 MG/DL (0.0-0.2); BILIRUBIN,TOTAL 1.2 MG/DL (0.2-1.0); CALCIUM LEVEL 9.9 MG/DL (8.8-10.2); CREATININE FOR GFR 2.73 MG/DL (0.70-1.30); GLOMERULAR FILTRATION RATE 24.4 (>42); POTASSIUM SERUM 5.3 MEQ/L (3.5-5.1); TOTAL PROTEIN 6.4 GM/DL (6.4-8.2)
[2022-05-05 23:37] LABS: CK-MB VALUE MASS 4.5 NG/ML (<3.6); MB/CK RELATIVE INDEX 2.34 (< OR =4)
[2022-05-06] VITALS (7 sets, daily range): BP systolic 99–139; BP diastolic 63–86; O2SAT 92
[2022-05-06 00:40] LABS: CK-MB VALUE MASS 4.4 NG/ML (<3.6); MB/CK RELATIVE INDEX 2.54 (< OR =4)
[2022-05-06] MEDS ORDERED: ONDANSETRON 4MG 2ML VIAL IV ONE (00:55)
[2022-05-06] MEDS ORDERED: MORPHINE 4 MG/ML 1ML VIAL/SYRINGE IV PRN (00:55)
[2022-05-06] MEDS: D5W/0.9% SODIUM CHLORIDE 1,000 ML IV SCH ×2 (02:10→16:31)
[2022-05-06] MEDS ORDERED: DEXTROSE 50% 50 ML SYRINGE IV PRN (02:10)
[2022-05-06] MEDS ORDERED: GLUCOSE 4GM CHEW TABLET PO PRN (02:10)
[2022-05-06] MEDS ORDERED: GLUCAGON INJ 1MG VIAL SC PRN (02:10)
[2022-05-06 02:16] LABS: RSV AMPLIFICATION NEGATIVE (NEGATIVE)
[2022-05-06] MEDS ORDERED: LEVALBUTEROL 1.25 MG/0.5 ML CONCENTRATE NEB INH PRN (03:50)
[2022-05-06] MEDS ORDERED: ONDANSETRON 4MG 2ML VIAL IV PRN (04:00)
[2022-05-06] MEDS ORDERED: MACR100C43 PO (04:33)
[2022-05-06] MEDS ORDERED: ALLO300T2 PO (04:33)
[2022-05-06] MEDS ORDERED: MULTCHW12 PO (04:33)
[2022-05-06] MEDS ORDERED: LANTINJ4 SC (04:33)
[2022-05-06] MEDS ORDERED: HOME MED LIST COMPLETE! XX SCH (04:35)
[2022-05-06] MEDS ORDERED: ALBUTEROL 90 MCG/ACT 8GM HFA INHALER INH PRN (05:40)
[2022-05-06] MEDS: INSULIN LISPRO (NovoLOG) PER UNIT SC SCH ×3 (06:00→19:06)
[2022-05-06] MEDS: HEPARIN SOD (PORCINE) 5000UNITS/ML 1ML VIAL/SYRINGE SQ SCH ×3 (06:00→22:24)
[2022-05-06 06:39] LABS: BASO % 0.3 % (0.0-1.0); EOS # 0.2 10^3/uL (0.0-0.5); HEMATOCRIT 45.8 % (42.0-52.0); HEMOGLOBIN 14.8 g/dl (13.5-17.5); LYMPH # 0.9 10^3/uL (1.5-5.0); LYMPH % 8.9 % (24.0-44.0); MEAN CORPUSCULAR HEMOGLOBIN 30.3 pg (27.0-33.0); MEAN CORPUSCULAR HGB CONC 32.3 g/dl (32.0-36.5); MEAN CORPUSCULAR VOLUME 93.9 fl (80.0-96.0); MONO # 0.9 10^3/uL (0.0-0.8); MONO % 9.4 % (2.0-8.0); NEUTROPHILS # 7.8 10^3/uL (1.5-8.5); NEUTROPHILS % 78.8 % (36.0-66.0); PLATELET COUNT, AUTOMATED 224 10^3/uL (150-450); RED BLOOD COUNT 4.88 10^6/uL (4.30-6.10)
[2022-05-06 07:09] LABS: CK-MB VALUE MASS 3.9 NG/ML (<3.6); MB/CK RELATIVE INDEX 2.67 (< OR =4)
[2022-05-06 07:18] LABS: ACETAMINOPHEN LEVEL 8.2 UG/ML (10.0-30.0); ALBUMIN 3.3 GM/DL (3.2-5.2); BILIRUBIN,TOTAL 1.3 MG/DL (0.2-1.0); CALCIUM LEVEL 9.4 MG/DL (8.8-10.2); CREATININE FOR GFR 2.39 MG/DL (0.70-1.30); GLOMERULAR FILTRATION RATE 28.4 (>42); MAGNESIUM LEVEL 2.3 MG/DL (1.8-2.4); POTASSIUM SERUM 5.5 MEQ/L (3.5-5.1); TOTAL PROTEIN 6.3 GM/DL (6.4-8.2)
[2022-05-06 07:28] LABS: HEMOGLOBIN A1c 7.5 %
[2022-05-06] MEDS: ADVAIR HFA 115/21MCG INHALER INH SCH (08:26)
[2022-05-06 15:57] LABS: ALBUMIN 3.1 GM/DL (3.2-5.2); BILIRUBIN,TOTAL 1.2 MG/DL (0.2-1.0); CALCIUM LEVEL 9.7 MG/DL (8.8-10.2); CREATININE FOR GFR 2.09 MG/DL (0.70-1.30); GLOMERULAR FILTRATION RATE 33.2 (>42); MAGNESIUM LEVEL 2.3 MG/DL (1.8-2.4); POTASSIUM SERUM 5.6 MEQ/L (3.5-5.1); TOTAL PROTEIN 6.6 GM/DL (6.4-8.2)
[2022-05-06] MEDS ORDERED: SOD POLYSTYRENE SULFONATE SUSP 30GM 120ML ENEMA PR ONE (16:00)
[2022-05-06] MEDS: MORPHINE 2 MG/ML 1ML VIAL IV PRN (16:29)
[2022-05-06] MEDS: SIMVASTATIN 20 MG TAB PO SCH (21:49)
[2022-05-06] MEDS: ASPIRIN 81MG ENTERIC TABLET PO SCH (21:49)
[2022-05-07] MEDS: cefTRIAXone SOD 1 GM in D5W MINI-BAG PLUS 50 ML IV SCH (00:35)
[2022-05-07] MEDS: INSULIN LISPRO (NovoLOG) PER UNIT SC SCH ×4 (00:36→18:32)
[2022-05-07] MEDS: HEPARIN SOD (PORCINE) 5000UNITS/ML 1ML VIAL/SYRINGE SQ SCH ×3 (05:47→20:53)
[2022-05-07 06:26] LABS: BASO % 0.4 % (0.0-1.0); EOS # 0.2 10^3/uL (0.0-0.5); EOS % 2.1 % (0.0-3.0); HEMATOCRIT 43.7 % (42.0-52.0); HEMOGLOBIN 13.8 g/dl (13.5-17.5); LYMPH # 0.5 10^3/uL (1.5-5.0); LYMPH % 4.7 % (24.0-44.0); MEAN CORPUSCULAR HEMOGLOBIN 30.3 pg (27.0-33.0); MEAN CORPUSCULAR HGB CONC 31.6 g/dl (32.0-36.5); MEAN CORPUSCULAR VOLUME 95.8 fl (80.0-96.0); MONO % 9.1 % (2.0-8.0); NEUTROPHILS # 8.7 10^3/uL (1.5-8.5); PLATELET COUNT, AUTOMATED 179 10^3/uL (150-450); RED BLOOD COUNT 4.56 10^6/uL (4.30-6.10); WHITE BLOOD COUNT 10.5 10^3/uL (4.0-10.0)
[2022-05-07 07:19] LABS: ALBUMIN 2.9 GM/DL (3.2-5.2); BILIRUBIN,TOTAL 1.1 MG/DL (0.2-1.0); CALCIUM LEVEL 9.7 MG/DL (8.8-10.2); CREATININE FOR GFR 1.98 MG/DL (0.70-1.30); GLOMERULAR FILTRATION RATE 35.4 (>42); MAGNESIUM LEVEL 2.3 MG/DL (1.8-2.4); POTASSIUM SERUM 5.3 MEQ/L (3.5-5.1); TOTAL PROTEIN 5.6 GM/DL (6.4-8.2)
[2022-05-07] MEDS: ADVAIR HFA 115/21MCG INHALER INH SCH ×2 (07:26→19:19)
[2022-05-07] MEDS: MORPHINE 2 MG/ML 1ML VIAL IV PRN (07:43)
[2022-05-07 08:00] VITALS: BP 114/76
[2022-05-07] MEDS: D5W/0.9% SODIUM CHLORIDE 1,000 ML IV SCH (08:07)
[2022-05-07 10:59] LABS: CK-MB VALUE MASS 2.6 NG/ML (<3.6); MB/CK RELATIVE INDEX 4.48 (< OR =4)
[2022-05-07 11:23] LABS: ABG BASE EXCESS -5.6 (-2.0-2.0); ABG O2 SATURATION 95.3 % (95.0-99.0); ABG PARTIAL PRESSURE CO2 39.7 mmHg (35.0-45.0); ABG PARTIAL PRESSURE O2 79.1 mmHg (75.0-100.0); ABG STANDARD HCO3 19.9 MEQ/L (22.0-26.0); ABG TOTAL CO2 21.3 MEQ/L (23.0-31.0); ABG pH (ARTERIAL) 7.321 UNITS (7.350-7.450)
[2022-05-07] MEDS: oxyCODONE 5MG TAB PO PRN ×2 (12:06→22:43)
[2022-05-07] MEDS ORDERED: SOD POLYSTYRENE SULFONATE SUSP 15GM 60ML UD PO ONE (13:00)
[2022-05-07 13:05] LABS: CK-MB VALUE MASS 2.3 NG/ML (<3.6); MB/CK RELATIVE INDEX 4.34 (< OR =4)
[2022-05-07 14:00] VITALS: BP 94/69
[2022-05-07] MEDS ORDERED: NS 500 ML IV ONE (14:55)
[2022-05-07] MEDS: ASPIRIN 81MG ENTERIC TABLET PO SCH (20:53)
[2022-05-07] MEDS: SIMVASTATIN 20 MG TAB PO SCH (20:53)
[2022-05-07 22:00] VITALS: BP 124/83
[2022-05-08] MEDS: cefTRIAXone SOD 1 GM in D5W MINI-BAG PLUS 50 ML IV SCH (00:35)
[2022-05-08] MEDS: HEPARIN SOD (PORCINE) 5000UNITS/ML 1ML VIAL/SYRINGE SQ SCH ×3 (05:07→21:41)
[2022-05-08 06:00] VITALS: BP 114/68
[2022-05-08] MEDS: ADVAIR HFA 115/21MCG INHALER INH SCH ×2 (06:36→19:38)
[2022-05-08 07:34] LABS: BASO % 0.2 % (0.0-1.0); EOS # 0.2 10^3/uL (0.0-0.5); EOS % 2.7 % (0.0-3.0); HEMATOCRIT 44.7 % (42.0-52.0); LYMPH # 0.6 10^3/uL (1.5-5.0); LYMPH % 7.3 % (24.0-44.0); MEAN CORPUSCULAR HEMOGLOBIN 30.4 pg (27.0-33.0); MEAN CORPUSCULAR HGB CONC 31.3 g/dl (32.0-36.5); MONO % 11.5 % (2.0-8.0); NEUTROPHILS # 6.5 10^3/uL (1.5-8.5); NEUTROPHILS % 77.6 % (36.0-66.0); PLATELET COUNT, AUTOMATED 187 10^3/uL (150-450); RED BLOOD COUNT 4.61 10^6/uL (4.30-6.10); WHITE BLOOD COUNT 8.4 10^3/uL (4.0-10.0)
[2022-05-08 08:04] LABS: ALBUMIN 2.9 GM/DL (3.2-5.2); BILIRUBIN,TOTAL 1.2 MG/DL (0.2-1.0); CALCIUM LEVEL 9.6 MG/DL (8.8-10.2); CREATININE FOR GFR 2.01 MG/DL (0.70-1.30); GLOMERULAR FILTRATION RATE 34.7 (>42); POTASSIUM SERUM 4.9 MEQ/L (3.5-5.1); TOTAL PROTEIN 5.6 GM/DL (6.4-8.2)
[2022-05-08] MEDS: INSULIN LISPRO (NovoLOG) PER UNIT SC SCH ×5 (08:11→21:00)
[2022-05-08 08:44] VITALS: BP 115/69
[2022-05-08] MEDS ORDERED: LISINOPRIL *2.5 MG* TAB PO SCH (09:00)
[2022-05-08] MEDS ORDERED: LevoFLOXacin IV 750 MG in IV 1 EA IV SCH (09:15)
[2022-05-08] MEDS: LevoFLOXacin 750 MG TABLET PO SCH (10:32)
[2022-05-08] MEDS: oxyCODONE 5MG TAB PO PRN ×2 (12:07→18:51)
[2022-05-08 14:00] VITALS: BP 135/79
[2022-05-08] MEDS: ASPIRIN 81MG ENTERIC TABLET PO SCH (21:41)
[2022-05-08] MEDS: SIMVASTATIN 20 MG TAB PO SCH (21:41)
[2022-05-08 22:00] VITALS: BP 123/77
[2022-05-09] MEDS: oxyCODONE 5MG TAB PO PRN ×3 (04:11→15:58)
[2022-05-09 06:00] VITALS: BP 121/75
[2022-05-09] MEDS: HEPARIN SOD (PORCINE) 5000UNITS/ML 1ML VIAL/SYRINGE SQ SCH ×3 (06:00→21:18)
[2022-05-09 06:34] LABS: BASO % 0.2 % (0.0-1.0); EOS # 0.2 10^3/uL (0.0-0.5); EOS % 2.3 % (0.0-3.0); HEMATOCRIT 45.5 % (42.0-52.0); HEMOGLOBIN 14.3 g/dl (13.5-17.5); LYMPH # 0.5 10^3/uL (1.5-5.0); LYMPH % 5.3 % (24.0-44.0); MEAN CORPUSCULAR HEMOGLOBIN 29.2 pg (27.0-33.0); MEAN CORPUSCULAR HGB CONC 31.4 g/dl (32.0-36.5); MONO # 0.9 10^3/uL (0.0-0.8); MONO % 9.9 % (2.0-8.0); NEUTROPHILS # 7.6 10^3/uL (1.5-8.5); NEUTROPHILS % 81.7 % (36.0-66.0); PLATELET COUNT, AUTOMATED 181 10^3/uL (150-450); RED BLOOD COUNT 4.89 10^6/uL (4.30-6.10); WHITE BLOOD COUNT 9.3 10^3/uL (4.0-10.0)
[2022-05-09 07:00] LABS: CALCIUM LEVEL 9.3 MG/DL (8.8-10.2); CREATININE FOR GFR 1.6 MG/DL (0.70-1.30); GLOMERULAR FILTRATION RATE 45.2 (>42); MAGNESIUM LEVEL 1.9 MG/DL (1.8-2.4); POTASSIUM SERUM 4.9 MEQ/L (3.5-5.1)
[2022-05-09] MEDS: INSULIN LISPRO (NovoLOG) PER UNIT SC SCH ×4 (08:24→21:18)
[2022-05-09] MEDS: ADVAIR HFA 115/21MCG INHALER INH SCH ×2 (08:56→19:33)
[2022-05-09 09:00] VITALS: BP 134/68
[2022-05-09] MEDS ORDERED: BISACODYL 10 MG SUPP PR ONE (12:35)
[2022-05-09] MEDS: FUROSEMIDE 40 MG TAB PO SCH (12:57)
[2022-05-09] MEDS ORDERED: HEPARIN SOD (PORCINE) 5000UNITS/ML 1ML VIAL/SYRINGE IV ONE (13:20)
[2022-05-09] MEDS ORDERED: HEPARIN DRIP 25,000 UNITS in IV 1 EA IV SCH (13:20)
[2022-05-09] MEDS ORDERED: HEPARIN SOD (PORCINE) 5000UNITS/ML 1ML VIAL/SYRINGE IV PRN (13:20)
[2022-05-09 16:00] VITALS: BP 121/71
[2022-05-09] MEDS ORDERED: FUROSEMIDE 20MG/2ML VIAL (J1940) IV STA (16:07)
[2022-05-09 16:40] VITALS: O2SAT 93
[2022-05-09 20:00] VITALS: BP 124/82
[2022-05-09 20:15] LABS: CALCIUM LEVEL 9.3 MG/DL (8.8-10.2); CREATININE FOR GFR 1.83 MG/DL (0.70-1.30); GLOMERULAR FILTRATION RATE 38.7 (>42); MAGNESIUM LEVEL 1.8 MG/DL (1.8-2.4); PHOSPHORUS LEVEL 2.3 MG/DL (2.5-4.9); POTASSIUM SERUM 4.8 MEQ/L (3.5-5.1)
[2022-05-09 20:47] LABS: ABG BASE EXCESS -1.8 (-2.0-2.0); ABG HCO3 22.9 MEQ/L (22.0-26.0); ABG O2 SATURATION 95.2 % (95.0-99.0); ABG PARTIAL PRESSURE CO2 39.1 mmHg (35.0-45.0); ABG PARTIAL PRESSURE O2 73.3 mmHg (75.0-100.0); ABG STANDARD HCO3 22.9 MEQ/L (22.0-26.0); ABG TOTAL CO2 24.1 MEQ/L (23.0-31.0); ABG pH (ARTERIAL) 7.386 UNITS (7.350-7.450)
[2022-05-09] MEDS ORDERED: FUROSEMIDE 40MG/4ML VIAL (J1940) IV ONE (21:00)
[2022-05-09] MEDS: ASPIRIN 81MG ENTERIC TABLET PO SCH (21:17)
[2022-05-09] MEDS: SIMVASTATIN 20 MG TAB PO SCH (21:17)
[2022-05-10] VITALS (7 sets, daily range): BP systolic 116–133; BP diastolic 68–82; O2SAT 96
[2022-05-10 04:55] LABS: BASO % 0.3 % (0.0-1.0); EOS # 0.3 10^3/uL (0.0-0.5); EOS % 2.8 % (0.0-3.0); HEMATOCRIT 43.5 % (42.0-52.0); HEMOGLOBIN 13.9 g/dl (13.5-17.5); LYMPH # 0.6 10^3/uL (1.5-5.0); LYMPH % 5.8 % (24.0-44.0); MEAN CORPUSCULAR HEMOGLOBIN 30.2 pg (27.0-33.0); MEAN CORPUSCULAR VOLUME 94.4 fl (80.0-96.0); MONO # 1.2 10^3/uL (0.0-0.8); MONO % 12.3 % (2.0-8.0); NEUTROPHILS # 7.4 10^3/uL (1.5-8.5); NEUTROPHILS % 78.2 % (36.0-66.0); PLATELET COUNT, AUTOMATED 165 10^3/uL (150-450); RED BLOOD COUNT 4.61 10^6/uL (4.30-6.10); WHITE BLOOD COUNT 9.5 10^3/uL (4.0-10.0)
[2022-05-10 05:17] LABS: CALCIUM LEVEL 9.5 MG/DL (8.8-10.2); CREATININE FOR GFR 1.88 MG/DL (0.70-1.30); GLOMERULAR FILTRATION RATE 37.5 (>42); MAGNESIUM LEVEL 1.8 MG/DL (1.8-2.4); PHOSPHORUS LEVEL 2.7 MG/DL (2.5-4.9); POTASSIUM SERUM 4.4 MEQ/L (3.5-5.1)
[2022-05-10] MEDS: HEPARIN SOD (PORCINE) 5000UNITS/ML 1ML VIAL/SYRINGE SQ SCH (05:51)
[2022-05-10] MEDS: LevoFLOXacin 750 MG TABLET PO SCH (05:51)
[2022-05-10] MEDS ORDERED: FUROSEMIDE 40MG/4ML VIAL (J1940) IV ONE (07:20)
[2022-05-10] MEDS: ADVAIR HFA 115/21MCG INHALER INH SCH (07:36)
[2022-05-10] MEDS: INSULIN LISPRO (NovoLOG) PER UNIT SC SCH ×2 (07:48→12:19)
[2022-05-10 08:40] LABS: ABG BASE EXCESS 1.9 (-2.0-2.0); ABG HCO3 25.6 MEQ/L (22.0-26.0); ABG O2 SATURATION 91.4 % (95.0-99.0); ABG PARTIAL PRESSURE CO2 37.3 mmHg (35.0-45.0); ABG PARTIAL PRESSURE O2 57.3 mmHg (75.0-100.0); ABG TOTAL CO2 26.8 MEQ/L (23.0-31.0); ABG pH (ARTERIAL) 7.455 UNITS (7.350-7.450)
[2022-05-10] MEDS: FUROSEMIDE 40 MG TAB PO SCH (09:00)
[2022-05-10] MEDS ORDERED: MOM 30ML SUSPENSION UDC PO SCH (09:00)
[2022-05-10] MEDS ORDERED: SENOKOT S TAB PO SCH (09:00)
[2022-05-10] MEDS ORDERED: MAGNESIUM OXIDE 400MG TAB (MAG-OX) PO SCH (09:00)
[2022-05-10] MEDS ORDERED: OXYC-517 PO (12:05)
[2022-05-10] MEDS ORDERED: MAGN400T2 PO (12:05)
[2022-05-10] MEDS ORDERED: LEVO1TAB40 PO (12:05)
[2022-05-10] MEDS ORDERED: HEPA500023 SQ (12:06)
== END 2022-05-10 14:20 | disposition short-term general hospital (02) | DRG 690 ==
LOC: M ED 21:06 → M ED INP 05-06 02:09 → ENRESERV 05-06 08:41 → M 4MAIN 05-06 11:15 → M MSPAV 05-06 18:16 → M ICU 05-09 17:31
PROVIDERS: ADMIT Family Medicine; ATTEND Internal Medicine Critical Care Medicine
PROC: B246ZZZ Ultrasonography of Right and Left Heart (ICD-10-PCS; principal; 2022-05-06)
DX: N39.0 Urinary tract infection, site not specified (principal); K56.600 Partial intestinal obstruction, unspecified as to cause; I50.32 Chronic diastolic (congestive) heart failure; J84.9 Interstitial pulmonary disease, unspecified; J96.10 Chronic respiratory failure, unspecified whether with hypoxia or hypercapnia; I13.0 Hypertensive heart and chronic kidney disease with heart failure and stage 1 through stage 4 chronic kidney disease, or unspecified chronic kidney disease; N17.9 Acute kidney failure, unspecified; G47.33 Obstructive sleep apnea (adult) (pediatric); Z85.46 Personal history of malignant neoplasm of prostate; Z99.81 Dependence on supplemental oxygen; Z79.2 Long term (current) use of antibiotics; R29.6 Repeated falls; Z79.82 Long term (current) use of aspirin; Z79.4 Long term (current) use of insulin; Z79.899 Other long term (current) drug therapy; N18.9 Chronic kidney disease, unspecified; M19.90 Unspecified osteoarthritis, unspecified site; M10.9 Gout, unspecified; E11.22 Type 2 diabetes mellitus with diabetic chronic kidney disease; Z90.49 Acquired absence of other specified parts of digestive tract; Z98.84 Bariatric surgery status; Z20.822 Contact with and (suspected) exposure to COVID-19; R74.01 Elevation of levels of liver transaminase levels; E78.5 Hyperlipidemia, unspecified; Z90.79 Acquired absence of other genital organ(s); E87.5 Hyperkalemia; I27.20 Pulmonary hypertension, unspecified; R55 Syncope and collapse